=== PATIENT | female | born 1940 | race Two or more races ===

== ENCOUNTER 2025-02-07 17:02 | Inpatient (IN) | payer OTHER, MEDICARE ==
[~2025-02-07] VITALS: Ht 152.4 cm; Wt 74.7 kg
--- NOTE | 2025-02-07 17:29 | ECG ---
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
--- NOTE | 2025-02-07 18:14 | DVH ---
CHEST RADIOGRAPH Indication: sob Technique: Single frontal view of the chest was obtained Comparison: None FINDINGS: Lines and Tubes: None Lungs: Right lower lung zone opacity with obscuration of the right hemidiaphragm. No pneumothorax. Cardiomediastinal contours: Limited evaluation of the Heart size due to Opacification of the right lo wer lung zone. Bones: No acute osseous abnormality. IMPRESSION: Right lower lung zone opacity with obscuration of the right hemidiaphragm which may be from small to moderate pleural effusion atelectasis/pneumonia
[2025-02-07 18:22] LABS: Hematocrit 42.3 % (36.0-46.0); Hemoglobin 14.6 g/dL (12.2-16.2); Mean Corpuscular Hemoglobin 30.6 pg (28.0-32.0); Mean Corpuscular Volume 88.4 fL (80.0-100.0); Nucleated Red Blood Cells % 0.1 %
[2025-02-07 18:43] LABS: Potassium 4.3 mmol/L (3.5-5.1)
[2025-02-07 18:44] LABS: Anion Gap 8 (5-15); Carbon Dioxide 26 mmol/L (20-31)
[2025-02-07 18:45] LABS: Calcium 9.0 mg/dL (8.7-10.4)
[2025-02-07 18:50] LABS: BUN/Creatinine Ratio 17.1 (10.0-20.0); Blood Urea Nitrogen 13 mg/dL (9-23)
[2025-02-07 19:00] LABS: Chloride 95 mmol/L (98-107); Glucose 129 mg/dL (74-106); Sodium 129 mmol/L (136-145)
--- NOTE | 2025-02-07 19:09 | ED.PDOC ---
History of Present Illness HPI Comments This 84-year-old female with past medical history of AFib on Eliquis, hypertension, type 2 diabetes mellitus, hypothyroidism, hyperlipidemia presented to the ED with a chief complaint of right-sided chest pain and shortness of breath since yesterday prior to this visit. The patient states that she started having intermittent chest pain and shortness of breath for last 6 weeks getting worse that prompted this visit. The patient describes the pain as sharp right lower part of the chest, 9/10, radiates to the back, associated with shortness of breath, using boost of oxygen. The patient also mentioned having fever and chills, runny nose for the same duration. 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 Woods's office and he referred the patient to come to the ED for further evaluation and management of chest pain and shortness of breath. PCP: Dr. Randolph Chief Complaint: Shortness of Breath Time Seen by MD: 17:07 Allergies: Coded Allergies: NO KNOWN ALLERGIES (Unverified , 09/14/18) Home Meds No Active Prescriptions or Reported Meds Information Source: Patient Mode of Arrival: Ambulatory Severity: Moderate Timing: Days Duration: Since onset Prehospital treatment: None Past Medical History PAST MEDICAL HISTORY: AFIB, High Lipids, HTN, Thyroid Surgical History: Cholecystectomy, , Hysterectomy SMELTER LINER History: Denies all SMELTER LINER Hx Family History Family History: Reviewed,noncontributory to illness Social History Smoker: Non-Smoker Alcohol: Denies ETOH Use Drugs: Denies Drug Use Lives In: Home Constitutional: reports: chills, fever; denies: diaphoresis, fatigue, malaise, sweats, weakness, others EENTM: denies: blurred vision, double vision, ear bleeding, ear discharge, ear drainage, ear pain, ear ringing, eye pain, eye redness, hearing loss, mouth pain, mouth swelling, nasal discharge, nose bleeding, nose congestion, nose pain, photophobia, tearing, throat pain, throat swelling, voice changes, others Respiratory: reports: shortness of breath; denies: cough, hemoptysis, orthopnea, SOB at rest, SOB with excertion, stridor, wheezing, others Cardiovascular: reports: chest pain; denies: dizzy spells, diaphoresis, Dyspnea on exertion, edema, irregular heart beat, left arm pain, lightheadedness, palpitations, PND, syncope, others Gastrointestinal: denies: abdomen distended, abdominal pain, blood streaked bowels, constipated, diarrhea, dysphagia, difficulty swallowing, hematemesis, melena, nausea, poor appetite, poor fluid intake, rectal bleeding, rectal pain, vomiting, others Genitourinary: denies: abnormal vagina bleeding, burning, dyspareunia, dysuria, flank pain, frequency, hematuria, incontinence, pain, , vagina discharge, urgency, others Neurological: denies: dizziness, fainting, headache, left sided numbness, left sided weakness, numbness, paresthesia, pre-existing deficit, right sided numb ness, right sided weakness, seizure, speech problems, tingling, tremors, weakness, others Musculoskeletal: denies: back pain, gout, joint pain, joint swelling, muscle pain, muscle stiffness, neck pain, others Integumetry: denies: bruises, change in color, change in hair/nails, dryness, laceration, lesions, lumps, rash, wounds, others Allergic/Immunocompromised: denies: Difficulty Healing, Frequent Infections, Hives, Itching, others Hematologic/Lymphatic: denies: anemia, blood clots, easy bleeding, easy bruising, swollen glands, others Endocrine: denies: excessive hunger, excessive sweating, excessive thirst, excessive urination, flushing, intolerance to cold, intolerance to heat, unexplained weight gain, unexplained weight loss, others Psychiatric: denies: anxiety, bipolar disorder, depression, hopeless, panic disorder, schizophrenia, sleepless, suicidal, others Physical Exam General Appearance: Mild Distress HEENT: Normal ENT Inspection, Pharynx Normal, TMs Normal Neck: Full Range of Motion, Non-Tender, Normal, Normal Inspection Respiratory: Rales, Other (Decreased breath sounds and rales in the right basal zone of the lung) Cardiovascular: Irregular (Bilateral pedal edema 1+), Other Breast Exam: Deferred Gastrointestinal: No Organomegaly, Non Tender, No Pulsatile Mass, Normal Bowel Sounds, Soft Genitalia: Deferred Pelvic: Deferred Rectal: Deferred Extremities: No calf tenderness, Normal capillary refill, Pedal edema Neurologic: NOT DONE Cerebellar Function: NOT DONE Reflexes: NOT DONE Skin: NOT DONE Peripheral Pulses: 2+ carotid (R), 2+ carotid (L), 2+ femoral (R), 2+ femoral (L), 2+ dorsalis pedis (R), 2+ dorsalis pedis (L), 2+ Radial (R), 2+ Radial (L), 2+ Brachial (R), 2+ Brachial (L) Lymphatic: NOT DONE Was a procedure done? Was a procedure done?: No Differential Dx Considerations may include: Pneumonia, pulmonary embolism, pulmonary infarction, musculoskeletal chest pain, atrial fibrillation X-Ray, Labs, Meds, VS Vital Signs Date Time Temp Pulse Resp B/P (MAP) Pulse Ox O2 Delivery O2 Flow Rate FiO2 02/07/25 17:14 112 02/07/25 17:04 98.1 121 20 137/88 96 98.1 Lab Test 02/07/25 18:05 Range/Units White Blood Count 14.2 H 4.4-10.8 10^3/uL Red Blood Count 4.79 4.0-5.20 10^6/uL Hemoglobin 14.6 12.2-16.2 g/dL Hematocrit 42.3 36.0-46.0 % Mean Corpuscular Volume 88.4 80.0-100.0 fL Mean Corpuscular Hemoglobin 30.6 28.0-32.0 pg Mean Corpuscular Hemoglobin Concent 34.6 32.0-36.0 g/dL Red Cell Distribution Width 13.3 11.8-14.3 % Platelet Count 327 140-450 10^3/uL Mean Platelet Volume 7.7 6.9-10.8 fL Neutrophils (%) (Auto) 87.7 H 37.0-80.0 % Lymphocytes (%) (Auto) 4.4 L 10.0-50.0 % Monocytes (%) (Auto) 7.6 0.0-12.0 % Eosinophils (%) (Auto) 0.1 0.0-7.0 % Basophils (%) (Auto) 0.2 0.0-2.0 % Neutrophils # (Auto) 12.4 H 1.6-8.6 10 ^3/uL Lymphocytes # (Auto) 0.6 0.4-5.4 10 ^3/uL Monocytes # (Auto) 1.1 0-1.3 10 ^3/uL Eosinophils # (Auto) 0 0-0.8 10 ^3/uL Basophils # (Auto) 0 0-0.2 10 ^3/uL Nucleated Red Blood Cells 0.1 % D-Dimer, Quantitative 1.16 H 0.0-0.49 mg/L FEU Sodium Level Pending Potassium Level Pending Chloride Level Pending Carbon Dioxide Level Pending Anion Gap Pending Blood Urea Nitrogen Pending Creatinine Pending Glomerular Filtration Rate Calc Pending BUN/Creatinine Ratio Pending Serum Glucose Pending Calcium Level Pending Troponin I High Sensitivity < 3 L </=34 ng/L B-Type Natriuretic Peptide 140.34 0-100 pg/mL X-Ray, Labs, Meds, VS Comment CHEST RADIOGRAPH Indication: sob Technique: Single frontal view of the chest was obtained Comparison: None FINDINGS: Lines and Tubes: None Lungs: Right lower lung zone opacity with obscuration of the right hemidiaphragm. No pneumothorax. Cardiomediastinal contours: Limited evaluation of the Heart size due to Opacification of the right lower lung zone. Bones: No acute osseous abnormality. IMPRESSION: Right lower lung zone opacity with obscuration of the right hemidiaphragm which may be from small to moderate pleural effusion atelectasis/pneumonia Images Reviewed?: Images reviewed and evaluated by me Time of 1ST Reevaluation: 19:00 Reevaluation 1ST: Unchanged Patient Education/Counseling: Diagnosis, Treatment Family Education/Counseling: Diagnosis, Treatment SEPSIS Sepsis Screen Date sepsis recognized/suspect: Feb 07, 2025 Time Sepsis recognized/suspect: 1706 Recent Procedure: No On Antibiotic Therapy: No Respiratory Rate >20: No Heart Rate >90: Yes Temp<36 C (96.8 F) or >38.3 C: No SBP <90 or MAP <65 mmHG: No New Acute Mental Status Change: No Is the patient on CPAP, BIPAP,: No Physician Orders Troponin-I Hs (02/07/25 18:27) Troponin-I Hs (02/07/25 20:27) Electrocardigram (02/07/25 18:27) Electrocardigram (02/07/25 20:27) Basic Metabolic Panel (02/07/25 17:30) Chest Portable (02/07/25 17:30) Urinalysis (02/07/25 17:30) Echo 2d Mode Cardiac Dop (02/07/25 17:30) Sodium Chloride 0.9% (02/07/25 18:45) Lactic Acid W/ Reflex Order (02/07/25 18:41) Covid19 Antigen Lucy (02/07/25 ) Rapid Influenza A&B (02/07/25 18:41) Ceftriaxone 1gm/50ml D5w (Rocephin) (02/07/25 18:45) Azithromycin 500mg/ 250ml (Zithromax 50 (02/07/25 19:15) Bilat Lower Dvt (02/07/25 18:53) Vital Signs Date Time Temp Pulse Resp B/P (MAP) Pulse Ox O2 Delivery O2 Flow Rate FiO2 02/07/25 17:14 112 02/07/25 17:04 98.1 121 20 137/88 96 98.1 Laboratory Tests Test 02/07/25 18:05 White Blood Count 14.2 10^3/uL (4.4-10.8) H Departure 1 Departure Time of Disposition: 19:07 Impression: Primary Impression: Pneumonia Additional Impression: Leukocytosis Disposition: 30 STILL A PATIENT Admit to: Med Surg Condition: Guarded e-Prescriptions No Active Prescriptions or Reported Meds Critical Care Note Critical Care Time?: No Stability Stability form required: ALVINA Vidales RESIDENT Feb 07, 2025 19:09
--- NOTE | 2025-02-07 19:28 | DVH ---
Procedure: US BiLat Lower DVT Study Date and Requested Time: 02/07/2025 07:00 PM History: To rule out DVT Comparison: None Technique: Multiple high resolution fam-scale images with and without compression obtained of the bi lateral lower extremity veins, including the common femoral vein, deep femoral vein, proximal mid and distal superficial femoral vein, and popliteal vein. Additional limited images of the greater saphen ous vein also obtained. Augmentation performed as indicated. Color and spectral doppler flow images o btained as indicated. Findings: No visible intraluminal venous thrombus. No evidence of incompressibility or abnormal color or spectr al Doppler flow visualized in the bilateral lower extremity veins including, the common femoral vein, deep femoral vein, proximal mid and distal superficial femoral vein, and popliteal vein. Greater sap henous vein grossly unremarkable. Impression: No sonographic evidence of bilateral lower extremity deep venous thrombosis.
[2025-02-07 19:47] VITALS: O2SAT 92
[2025-02-07] MEDS: MORPHINE SULFATE INJ 2 MG/ml SYRG IV ONE (20:39)
[2025-02-07] MEDS: SODIUM CHLORIDE 0.9% 500 ML IV ONE (20:48)
[2025-02-07 20:52] LABS: Lactic Acid w/Reflex 2.4 mmol/L (0.4-2.0)
[2025-02-07] MEDS: cefTRIAXone 1GM/50ML D5W 50 ML IV ONE (20:55)
[2025-02-07 21:11] LABS: COVID19 ANTIGEN SOFIA FIA NEGATIVE (NEGATIVE)
[2025-02-07] MEDS: AZITHROMYCIN 500MG/ 250ML 250 ML IV ONE (22:08)
[2025-02-07] MEDS ORDERED: cefTRIAXone 1GM/50ML D5W 50 ML IV ONE (22:45)
[2025-02-07] MEDS ORDERED: AZITHROMYCIN 500MG/ 250ML 250 ML IV ONE (22:45)
[2025-02-07] MEDS ORDERED: ENOXAPARIN SOD 60 MG/0.6 ML SYRINGE SC SCH (23:45)
[2025-02-07] MEDS: HYDROcodone-ACET 5/325MG TAB PO ONE (23:48)
[2025-02-07 23:58] VITALS: BP 140/65; PULSE 110; RESP 18; TEMP 98.2; O2SAT 94
[2025-02-08] VITALS (8 sets, daily range): BP systolic 130–142; BP diastolic 62–80; PULSE 105–123; RESP 18–20; TEMP 96.7–99; O2SAT 94–96
--- NOTE | 2025-02-08 03:01 | DVHINCON2 ---
Date of service: Feb 07, 2025 Referring Physician Emelina Reason for Consultation Atrial flutter History of Present Illness This is a 84-year-old female with a past medical history of AFib on Eliquis, hypertension, type 2 diabetes mellitus, hypothyroidism, hyperlipidemia presented to the ED with a complaint of right-sided chest pain and shortness of breath x24 hours. The patient states that she started having intermittent chest pain and shortness of breath for last 6 weeks getting worse. Patient describes the pain as sharp right lower part of the chest, 9/10, radiates to the back, associated with shortness of breath, using boost of oxygen. Patient also endorses having fever and chills, runny nose for the same duration. Patient went to her lens cutter Dr. Woods's office and he referred the patient to come to the ED for further evaluation. WBC 14.2, D-DIMER 1.16, NA 129, TROP is negative. Chest x-ray showed right lower lung zone opacity with obscuration of the right hemidiaphragm which may be from small to moderate pleural effusion atelectasis/pneumonia. BLE Venous US is negative for DVT. Patient was admitted to the hospital. I am asked to consult on this patient. Family History: Cerebrovascular accident (CVA) G8 MOTHER Allergies: Coded Allergies: NO KNOWN ALLERGIES (Unverified , 09/14/18) Home Meds No Active Prescriptions or Reported Meds Current Medications Current Medications Medications (Trade) Dose Ordered Sig/Amna Route PRN Reason Start Time Stop Time Status Last Admin Ondansetron HCl (Zofran) 4 mg Q4HP PRN IV NAUSEA / VOMITING 02/07/25 22:45 Nitroglycerin (Ntrostat Sublingual) 0.4 mg Q5MINP PRN SL FOR CHEST PAIN 02/07/25 22:45 Metoprolol Tartrate (Lopressor Tablet) 25 mg BID PO 02/08/25 10:00 UNV Enoxaparin Sodium (Lovenox) 60 mg Q12HR SC 02/08/25 10:00 UNV Review of Systems Constitutional: reports: chills, fever; denies: diaphoresis, fatigue, malaise, sweats, weakness, others EENTM: denies: blurred vision, double vision, ear bleeding, ear discharge, ear drainage, ear pain, ear ringing, eye pain, eye redness, hearing loss, mouth pain, mouth swelling, nasal discharge, nose bleeding, nose congestion, nose pain, photophobia, tearing, throat pain, throat swelling, voice changes, others Respiratory: reports: shortness of breath; denies: cough, hemoptysis, orthopnea, SOB at rest, SOB with excertion, stridor, wheezing, others Cardiovascular: reports: chest pain; denies: dizzy spells, diaphoresis, Dyspnea on exertion, edema, irregular heart beat, left arm pain, lightheadedness, palpitations, PND, syncope, others Gastrointestinal: denies: abdomen distended, abdominal pain, blood streaked bowels, constipated, diarrhea, dysphagia, difficulty swallowing, hematemesis, melena, nausea, poor appetite, poor fluid intake, rectal bleeding, rectal pain, vomiting, others Genitourinary: denies: abnormal vagina bleeding, burning, dyspareunia, dysuria, flank pain, frequency, hematuria, incontinence, pain, , vagina discharge, urgency, others Neurological: denies: dizziness, fainting, headache, left sided numbness, left sided weakness, numbness, paresthesia, pre-existing deficit, right sided numbness, right sided weakness, seizure, speech problems, tingling, tremors, weakness, others Musculoskeletal: denies: back pain, gout, joint pain, joint swelling, muscle pain, muscle stiffness, neck pain, others Integumetry: denies: bruises, change in color, change in hair/nails, dryness, laceration, lesions, lumps, rash, wounds, others Allergic/Immunocompromised: denies: Difficulty Healing, Frequent Infections, Hives, Itching, others Hematologic/Lymphatic: denies: anemia, blood clots, easy bleeding, easy bruising, swollen glands, others Endocrine: denies: excessive hunger, excessive sweating, excessive thirst, excessive urination, flushing, intolerance to cold, intolerance to heat, unexplained weight gain, unexplained weight loss, others Psychiatric: denies: anxiety, bipolar disorder, depression, hopeless, panic disorder, schizophrenia, sleepless, suicidal, others Vital Signs Vital Signs Date Time Temp Pulse Resp B/P (MAP) Pulse Ox O2 Delivery O2 Flow Rate FiO2 02/07/25 20:39 122 18 120/76 02/07/25 19:47 92 Room Air* 0 21 02/07/25 19:47 99.0 99.0 Physical Exam GENERAL: Alert and oriented x 3. No acute distress. EYES: PERRL, EOMI. Anicteric. HENT: Moist mucous membranes. LUNGS: Clear to auscultation bilaterally. CARDIOVASCULAR: Regular rate and rhythm. ABDOMEN: Soft, nontender and nondistended. EXTREMITIES: No edema. NEUROLOGIC: No focal neurological deficits. SKIN: Warm, dry. Labs/Diagnostic Data Labs Test 02/07/25 21:17 02/07/25 20:10 02/07/25 18:05 Range/Units Lactic Acid Level 1.2 0.4-2.0 mmol/L Troponin I High Sensitivity < 3 L </=34 ng/L Influenza Type A Antigen Negative Negative Influenza Type B Antigen Negative Negative SARS-CoV-2 Antigen (Rapid) Negative NEGATIVE White Blood Count 14.2 H 4.4-10.8 10^3/uL Red Blood Count 4.79 4.0-5.20 10^6/uL Hemoglobin 14.6 12.2-16.2 g/dL Hematocrit 42.3 36.0-46.0 % Mean Corpuscular Volume 88.4 80.0-100.0 fL Mean Corpuscular Hemoglobin 30.6 28.0-32.0 pg Mean Corpuscular Hemoglobin Concent 34.6 32.0-36.0 g/dL Red Cell Distribution Width 13.3 11.8-14.3 % Platelet Count 327 140-450 10^3/uL Mean Platelet Volume 7.7 6.9-10.8 fL Neutrophils (%) (Auto) 87.7 H 37.0-80.0 % Lymphocytes (%) (Auto) 4.4 L 10.0-50.0 % Monocytes (%) (Auto) 7.6 0.0-12.0 % Eosinophils (%) (Auto) 0.1 0.0-7.0 % Basophils (%) (Auto) 0.2 0.0-2.0 % Neutrophils # (Auto) 12.4 H 1.6-8.6 10 ^3/uL Lymphocytes # (Auto) 0.6 0.4-5.4 10 ^3/uL Monocytes # (Auto) 1.1 0-1.3 10 ^3/uL Eosinophils # (Auto) 0 0-0.8 10 ^3/uL Basophils # (Auto) 0 0-0.2 10 ^3/uL Nucleated Red Blood Cells 0.1 % D-Dimer, Quantitative 1.16 H 0.0-0.49 mg/L FEU Sodium Level 129 L 136-145 mmol/L Potassium Level 4.3 3.5-5.1 mmol/L Chloride Level 95 L 98-107 mmol/L Carbon Dioxide Level 26 20-31 mmol/L Anion Gap 8 5-15 Blood Urea Nitrogen 13 9-23 mg/dL Creatinine 0.76 0.550-1.02 mg/dL Glomerular Filtration Rate Calc 76 >90 mL/min BUN/Creatinine Ratio 17.1 10.0-20.0 Serum Glucose 129 H 74-106 mg/dL Calcium Level 9.0 8.7-10.4 mg/dL B-Type Natriuretic Peptide 140.34 0-100 pg/mL Assessment Chest pain. Pneumonia. Hyponatremia. AFib on Eliquis. Hypertension. Type 2 diabetes mellitus. Hypothyroidism. Hyperlipidemia. Plan/Recommendation I agree with your ongoing assessment and care of plan. Telemetry reviewed. Echocardiogram. DVT prophylactics. Metoprolol. Nitro SL. Additional plan as per the hospital course. A total of 45 minutes was spent reviewing the patient record, examining the patient, making a diagnostic and therapeutic plan, discussing this plan with medical personnel, following up on diagnostic studies and following the patient for clinical stability excluding any and all procedures. At least 50% of this time was spent in direct, [id number] contact. Plan discussed with: Patient ABBEY VARELA MD Feb 07, 2025 23:32
--- NOTE | 2025-02-08 03:03 | DVHHPRES ---
History of Present Illness Resident Creating Document: ANAHY YADAV History of Present Illness 84-year-old female presents to the ED with 6-8 weeks' history of cough which worsened since the last week. The cough is not mixed with blood, sputum is minimal and clear. The patient has a right-sided chest wall pain which worsens with breathing. Her business applications specialist diagnosed pneumonia by chest x-ray and sent her to the ER. Previously she reports having drained her pleural fluid by the same doctor. She denies abdominal pain, nausea, vomiting dizziness or any other complaints. She complains of her left knee pain and back pain. In the ER, arranging a pillow on the wheelchair improved her back pain. Past medical history: Hypertension Past surgical history, none Alcohol: None Smoking: None Drugs: None Lives in her own home. Code status DNR DNI PCP : Can not recall Mental Retardation Aide: Home medicines: Antihypertensive, could not mentioned the name. Family history: Noncontributory Allergies: None Cardiovascular: AFIB Review of Systems Allergies: Coded Allergies: NO KNOWN ALLERGIES (Unverified , 09/14/18) Medications Current Medications Medications Dose Ordered Sig/Amna Route Start Time Stop Time Status Last Admin Dose Admin Ondansetron HCl 4 mg Q4HP PRN IV 02/07/25 22:45 Nitroglycerin 0.4 mg Q5MINP PRN SL 02/07/25 22:45 Metoprolol Tartrate 25 mg BID PO 02/08/25 10:00 Enoxaparin Sodium 60 mg Q12HR SC 02/07/25 23:45 Exam Vital Signs Vital Signs Date Time Temp Pulse Resp B/P (MAP) Pulse Ox O2 Delivery O2 Flow Rate FiO2 02/07/25 23:48 104 16 120/61 (80) 96 02/07/25 19:47 Room Air* 0 21 02/07/25 19:47 99.0 99.0 Exam Pt is lying on bed General Appearance: Alert, Oriented X3, Cooperative, Mild distress HEENT: Atraumatic, Mucous membranes moist/pink Respiratory: Clear to auscultation, Normal air movement, No added sounds Cardiovascular: Regular rate, Normal S1, Normal S2, No murmurs Abdominal/ : Active bowel sounds, Soft, no distention, no tenderness Extremities: No edema, Normal pulses, No tenderness/swelling Skin: No Significant rash, except past surgical scars Neuro: Normal speech, sensorimotor deficits none Psych/Mental Status: Mental status NL, Mood NL Nurse was there as mc kay stitcher during examination Labs/Xrays Labs Test 02/07/25 21:17 02/07/25 20:10 02/07/25 18:05 Range/Units Lactic Acid Level 1.2 0.4-2.0 mmol/L Troponin I High Sensitivity < 3 L </=34 ng/L Influenza Type A Antigen Negative Negative Influenza Type B Antigen Negative Negative SARS-CoV-2 Antigen (Rapid) Negative NEGATIVE White Blood Count 14.2 H 4.4-10.8 10^3/uL Red Blood Count 4.79 4.0-5.20 10^6/uL Hemoglobin 14.6 12.2-16.2 g/dL Hematocrit 42.3 36.0-46.0 % Mean Corpuscular Volume 88.4 80.0-100.0 fL Mean Corpuscular Hemoglobin 30.6 28.0-32.0 pg Mean Corpuscular Hemoglobin Concent 34.6 32.0-36.0 g/dL Red Cell Distribution Width 13.3 11.8-14.3 % Platelet Count 327 140-450 10^3/uL Mean Platelet Volume 7.7 6.9-10.8 fL Neutrophils (%) (Auto) 87.7 H 37.0-80.0 % Lymphocytes (%) (Auto) 4.4 L 10.0-50.0 % Monocytes (%) (Auto) 7.6 0.0-12.0 % Eosinophils (%) (Auto) 0.1 0.0-7.0 % Basophils (%) (Auto) 0.2 0.0-2.0 % Neutrophils # (Auto) 12.4 H 1.6-8.6 10 ^3/uL Lymphocytes # (Auto) 0.6 0.4-5.4 10 ^3/uL Monocytes # (Auto) 1.1 0-1.3 10 ^3/uL Eosinophils # (Auto) 0 0-0.8 10 ^3/uL Basophils # (Auto) 0 0-0.2 10 ^3/uL Nucleated Red Blood Cells 0.1 % D-Dimer, Quantitative 1.16 H 0.0-0.49 mg/L FEU Sodium Level 129 L 136-145 mmol/L Potassium Level 4.3 3.5-5.1 mmol/L Chloride Level 95 L 98-107 mmol/L Carbon Dioxide Level 26 20-31 mmol/L Anion Gap 8 5-15 Blood Urea Nitrogen 13 9-23 mg/dL Creatinine 0.76 0.550-1.02 mg/dL Glomerular Filtration Rate Calc 76 >90 mL/min BUN/Creatinine Ratio 17.1 10.0-20.0 Serum Glucose 129 H 74-106 mg/dL Calcium Level 9.0 8.7-10.4 mg/dL B-Type Natriuretic Peptide 140.34 0-100 pg/mL SEPSIS Sepsis Screen Date sepsis recognized/suspect: Feb 07, 2025 Time Sepsis recognized/suspect: 1706 Recent Procedure: No On Antibiotic Therapy: No Respiratory Rate >20: No Heart Rate >90: Yes Temp<36 C (96.8 F) or >38.3 C: No SBP <90 or MAP <65 mmHG: No New Acute Mental Status Change: No Is the patient on CPAP, BIPAP,: No Physician Orders Saline Lock (02/07/25 20:11) Blood Culture (02/07/25 20:19) Admit (02/07/25 22:45) Allergies (02/07/25 22:45) Code Status (02/07/25 22:45) Oxygen Per Hour (02/07/25 22:45) Ondansetron Hcl (Zofran) (02/07/25 22:45) Complete Blood Count (02/08/25 04:00) Comprehensive Metabolic Panel (02/08/25 04:00) Cardiac Diet-2gna,Lofat,Lochol (02/08/25 Breakfast) Nitroglycerin Sublingual (Ntrostat Subli (02/07/25 22:45) Oxygen By Nasal Cannula (02/07/25 22:45) Stat Ekg For Chest Pain (02/07/25 22:45) Notify Md Of Changes From Base (02/07/25 22:45) Proced Tech For 24 Hours (02/07/25 22:45) Emergency Dysrhythmia Protocol (02/07/25 22:45) Rhythm Strips Once Every Shift (02/07/25 22:45) Metoprolol Tartrate Tablet (Lopressor Ta (02/08/25 10:00) * Cardiology Consult (02/07/25 23:10) Enoxaparin Sodium (Lovenox) (02/07/25 23:45) Vital Signs Date Time Temp Pulse Resp B/P (MAP) Pulse Ox O2 Delivery O2 Flow Rate FiO2 02/07/25 23:48 104 16 120/61 (80) 96 02/07/25 20:39 122 18 120/76 02/07/25 19:47 92 Room Air* 0 21 02/07/25 19:47 99.0 122 18 123/76 (92) 90 99.0 Laboratory Tests Test 02/07/25 18:05 02/07/25 19:36 02/07/25 21:17 White Blood Count 14.2 10^3/uL (4.4-10.8) H Lactic Acid Level 2.4 mmol/L (0.4-2.0) *H 1.2 mmol/L (0.4-2.0) Medications Medications Dose Ordered Sig/Amna Route Start Time Stop Time Status Last Admin Dose Admin Acetaminophen/ Hydrocodone Bitart 1 tab ONCE ONCE PO 02/07/25 22:45 02/07/25 22:46 DC 02/07/25 23:48 1 TAB Azithromycin 250 ml @ 125 mls/hr ONCE ONCE IV 02/07/25 19:15 02/07/25 21:14 DC 02/07/25 22:08 125 MLS/HR Ceftriaxone Sodium 50 ml @ 100 mls/hr ONCE ONCE IV 02/07/25 18:45 02/07/25 19:14 DC 02/07/25 20:55 100 MLS/HR Morphine Sulfate 2 mg ONCE ONCE IV 02/07/25 17:30 02/07/25 17:33 DC 02/07/25 20:39 2 MG Sodium Chloride 500 ml @ 500 mls/hr Q1H ONCE IV 02/07/25 18:45 02/07/25 19:44 DC 02/07/25 20:48 500 MLS/HR Assessment/Plan Assessment/Plan Shortness of breaths due to pneumonia by gram-positive or gram-negative organism Chest pain due to pneumonia my Gram-positive or Gram-negative organism Meeting SIRS criteria -leukocytosis -CXR: Right lower lung zone opacity with obstruction of the right hemidiaphragm, likely from small to moderate pleural effusion atelectasis/pneumonia. -lactic acidosis, downtrending (2.4>1.2) -ceftriaxone and azithromycin -NSAIDs for chest wall pain Tachycardia due to sepsis/infection Atrial flutter on EKG - telemetry monitoring -metoprolol -Lovenox -cardiology consult: Telemetry reviewed by Cardiology. Recommendations from Cardiology: Echocardiogram. DVT prophylactics. Metoprolol. Nitro SL. Hypertension Continue home meds GI prophylaxis: Not indicated DVT prophylaxis: Lovenox Diet: Regular Goals of care discussed with the patient for more than 27 minutes: Full code status Case discussed with , patient and RN Plan discussed with: Patient, Other (RN) My Orders Orders - ANAHY YADAV RESIDENT Procedure Category Date Status Time Admit ADMIT 02/07/25 Transmitted 22:45 Allergies PEDRITO 02/07/25 In Process 22:45 Code Status CODE 02/07/25 Transmitted 22:45 Oxygen Per Hour RT 02/07/25 Transmitted 22:45 Ondansetron Hcl PHA 02/07/25 In Process (Zofran) 22:45 Complete Blood Count LAB 02/08/25 Logged 04:00 Comprehensive LAB 02/08/25 Logged Metabolic Panel 04:00 Cardiac DIET 02/08/25 Transmitted Diet-2gna,Lofat,Lochol Breakfast Nitroglycerin PHA 02/07/25 In Process Sublingual (Ntrostat 22:45 Oxygen By Nasal RT 02/07/25 Transmitted Cannula 22:45 Stat Ekg For Chest PEDRITO 02/07/25 In Process Pain 22:45 Notify Md Of Changes PEDRITO 02/07/25 In Process From Base 22:45 Proced Tech For PEDRITO 02/07/25 In Process 24 Hours 22:45 Emergency Dysrhythmia PEDRITO 02/07/25 In Process Protocol 22:45 Rhythm Strips Once PEDRITO 02/07/25 In Process Every Shift 22:45 Metoprolol Tartrate PHA 02/08/25 In Process Tablet (Lopressor Ta 10:00 * Cardiology Consult CONS 02/07/25 Transmitted 23:10 Enoxaparin Sodium PHA 02/07/25 In Process (Lovenox) 23:45 Date of Service: Feb 07, 2025 Billing Provider: GAMAL HOLT MD Common Visit Codes: [id number] INP/OBS CARE (HIGH) Secondary Visit Codes: [id number] CARE PLAN 30 MINUTES ANAHY YADAV Feb 08, 2025 03:03 GAMAL HOLT MD Feb 14, 2025 15:53
[2025-02-08] MEDS: KETOROLAC TROMETH 30 MG/ML 1ML VIAL IV ONE ×2 (03:50→13:18)
[2025-02-08] MEDS: ENOXAPARIN SOD 60 MG/0.6 ML SYRINGE SC SCH (07:03)
[2025-02-08 07:29] LABS: Hematocrit 38.6 % (36.0-46.0); Hemoglobin 13.5 g/dL (12.2-16.2); Mean Corpuscular Hemoglobin 31.1 pg (28.0-32.0); Mean Corpuscular Volume 88.7 fL (80.0-100.0); Nucleated Red Blood Cells % 0.1 %
[2025-02-08 07:48] LABS: Albumin 3.6 g/dL (3.2-4.8); Anion Gap 11 (5-15); BUN/Creatinine Ratio 17.1 (10.0-20.0); Blood Urea Nitrogen 14 mg/dL (9-23); Calcium 9.1 mg/dL (8.7-10.4); Carbon Dioxide 22 mmol/L (20-31); Potassium 4.5 mmol/L (3.5-5.1); Total Protein 6.0 g/dL (5.7-8.2)
[2025-02-08 07:49] LABS: Bilirubin, Total 1.0 mg/dL (0.2-1.0)
[2025-02-08 07:50] LABS: Alanine Aminotransferase 71 U/L (7-40); Alkaline Phosphatase 126 U/L (46-116); Chloride 96 mmol/L (98-107); Glucose 107 mg/dL (74-106); Sodium 129 mmol/L (136-145)
[2025-02-08] MEDS: METOPROLOL TARTRATE 25 MG TAB PO SCH (09:41)
[2025-02-08] MEDS: ONDANSETRON HCL 4 MG/2 ML VIAL IV PRN (12:33)
--- NOTE | 2025-02-08 15:34 | DVHPN2 ---
Subjective Continue to complain of chest pain and shortness of breath Reviewed: Care Plan, H&P, Labs, Medications, Previous Orders, Radiology, Other (Consultation) Changes from previous H/P or p: No Changes Objective Vitals Vital Signs Date Time Temp Pulse Resp B/P (MAP) Pulse Ox O2 Delivery O2 Flow Rate FiO2 02/08/25 13:00 96.7 109 20 134/75 (94) 96 96.7 02/08/25 08:00 Nasal Cannula* 2 28 Intake/Output Intake and Output 02/08/25 07:00 Intake Total 240 ml Balance 240 ml Intake Oral 240 ml General Appearance: Alert, Oriented X3, Cooperative, moderate distress HEENT: Atraumatic Lungs: Other (Decreased air entry on the right side with a scattered crackles) Cardiovascular: Other (Tachycardia with irregularly irregular) Abdomen: Normal bowel sounds, Soft, No tenderness Neuro: Normal speech, Cranial nerves 3-12 NL Psych/Mental Status: Mental status NL, Mood NL Medications Current Medications Medications Dose Ordered Sig/Amna Route Start Time Stop Time Status Last Admin Dose Admin Ondansetron HCl 4 mg Q4HP PRN IV 02/07/25 22:45 02/08/25 12:33 4 MG Nitroglycerin 0.4 mg Q5MINP PRN SL 02/07/25 22:45 Metoprolol Tartrate 25 mg BID PO 02/08/25 10:00 02/08/25 09:41 25 MG Enoxaparin Sodium 60 mg Q12HR SC 02/08/25 07:00 02/08/25 07:03 60 MG Acetaminophen/ Hydrocodone Bitart 1 tab Q6HPRN PRN PO 02/08/25 13:00 Azithromycin 250 ml @ 125 mls/hr DAILY IV 02/09/25 10:00 Ceftriaxone Sodium 50 ml @ 100 mls/hr DAILY@09 IV 02/09/25 09:00 Laboratory Results Laboratory Tests 02/08/25 06:29 Chemistry Test 02/07/25 18:05 02/08/25 06:29 Calcium Level 9.0 mg/dL (8.7-10.4) 9.1 mg/dL (8.7-10.4) Albumin 3.6 g/dL (3.2-4.8) Total Protein 6.0 g/dL (5.7-8.2) Coagulation Test 02/07/25 18:05 D-Dimer, Quantitative 1.16 mg/L FEU (0.0-0.49) H Cardiac Markers Test 02/07/25 18:05 B-Type Natriuretic Peptide 140.34 pg/mL (0-100) LFT Test 02/08/25 06:29 Alanine Aminotransferase (ALT) 71 U/L (7-40) H Alkaline Phosphatase 126 U/L (46-116) H Aspartate Amino Transferase (AST) 38 U/L (13-40) Total Bilirubin 1.0 mg/dL (0.2-1.0) Labs and/or images reviewed: Labs reviewed by me, Image(s) reviewed by me Assessment/Plan Assessment/Plan An 84-year-old female patient; with multiple comorbidities; who presented to emergency department with chest pain and shortness of breath. Acute hypoxic respiratory failure due to suspected pneumonia versus suspected acute CHF exacerbation Acute chest pain; to rule out ACS Atrial fibrillation with with RVR Sepsis with leukocytosis and lactic acidosis due to suspected pneumonia Shortness of breaths with the elevated D-dimer; to rule out PE Hypertensive heart disease with CHF Elevated LFTs; most likely due to suspected acute CHF exacerbation Hyponatremia; unclear etiology Overweight Reviewed lab work and imaging studies Pending chest angiogram to rule out PE Continue oxygen therapy as needed Free water restriction Continue IV antibiotics Cardiology consulted Telemetry Counseled on the importance of adopting healthy lifestyle with healthy and exercise in order to lose weight Continue monitoring Goals of care discussed with the patient for 20 minutes; full code Late Entry. This medical document was created using an electronic medical record system with computerized dictation system. Although this document has been carefully reviewed, there might still be some phonetic and typographical errors. These areas are purely typographical due to imperfections of the software programs, and do not reflect any compromise in the patient's medical care. Plan discussed with: Patient, Other (Nurse) My Orders Orders - LIANNE ARIAS MD Procedure Category Date Status Time Hydrocodone-Acet PHA 02/08/25 In Process 5/325mg Tab ([place] 13:00 Azithromycin 500mg/ PHA 02/09/25 In Process 250ml (Zithromax 50 10:00 Azithromycin 500mg/ PHA 25 In Process 250ml (Zithromax 50 14:30 Ceftriaxone 1gm/50ml PHA 02/09/25 In Process D5w (Rocephin) 09:00 Date of Service: Feb 08, 2025 Billing Provider: LIANNE ARIAS MD Common Visit Codes: [id number] INP/OBS CARE(HIGH) Secondary Visit Codes: [id number] CARE PLAN 30 MINUTES (20 minutes) LIANNE ARIAS MD Feb 08, 2025 15:34
[2025-02-08] MEDS: cefTRIAXone 1GM/50ML D5W 50 ML IV ONE (15:50)
[2025-02-08] MEDS: AZITHROMYCIN 500MG/ 250ML 250 ML IV ONE (15:50)
--- NOTE | 2025-02-08 15:53 | DVHSR ---
APPROVED REPORT EXAM: Two-dimensional and M-mode echocardiogram with Doppler and color Doppler. Blood Pressure: 142/62 mmHg INDICATION SOB RISK FACTORS Height: 5', Weight: 138 DIMENSIONS LVDd3.9 (3.8-5.7cm)LA (2D)3.8 (1.9-4.0cm)Aortic Root3.0 (2.0-3.7cm) LVDs2.8 (2.5-4.0cm)LA (MM) (1.9-4.0cm)Aortic Cusp Exc1.3 (1.5-2.0cm) EF (%) 55.0 (55-70%)Rt. Atrium3.9 (1.9-4.0cm)Asc. Aorta cm IVSd1.2 (0.7-1.1cm)RV (D) (1.8-2.4cm) PWd1.0 (0.7-1.1cm) Mitral Valve MitralMitral Stenosis E wave1.20m/sMV Mean GR.mmHg E/A ratio0.02D MVAcm2 Aortic Valve Aortic ValveAortic Stenosis V10.84m/Johann Mean GR.2mmHg V21.07m/Johann Peak GR.5mmHg LVOT Diameter2.0 (1.8-2.4cm)Doppler AVA2.47cm2 Pulmonic Valve V20.63m/s Tricuspid Valve TR Velocity2.72m/s [id number] Other Information Quality : Technically LimitedRhythm : Atrial Fibrillation Technically limited study due to body habitus. Conclusion MODERATELY DILATED RV AND RA DYSKINESIS OF IVS IT IS ACUTE OR CHRONIC RV FAILURE MILD LVH AND MILD LV DIASTOLIC DYSFUNCTION LV EF IS 60% NORMAL VALVES NO EFFUSION
[2025-02-08] MEDS: IOHEXOL 350 MG/ML 100ML IJ ONE (16:02)
--- NOTE | 2025-02-08 17:22 | DVH ---
EXAM: CT CT ANGIO CHEST CONTRAST History: To rule out pE. Thank You! Comparison Study: XY CHEST PORTABLE on DOS: 02/07/25 TECHNIQUE: A digital flitch hanger image was obtained. During the uneventful, intravenous administration of c ontrast material, multislice data acquisition was obtained through the chest. 3-D postprocessing is performed by technologist including MIP imaging Radiation Dose : CTDI vol 17.79 mGy, DLP 636.44 mGy*cm. Findings: Lungs: Large right pleural effusion with near complete atelectasis of the right lower lobe. Periphera l nodular opacities in the left lower lobe. Pleura: Unremarkable Heart/Great vessels: No cardiomegaly. Small pericardial effusion. No pulmonary embolism, aneurysm, o r dissection. Mediastinum: Mildly prominent mediastinal nodes. Soft tissues/Bones: Mild multilevel degenerative changes of the thoracic spine. The partially visualized upper abdomen is within normal limits. Impression: 1. No evidence of a pulmonary embolism, aneurysm, or dissection. 2. Peripheral nodular opacities in the left lower lobe may reflect an infectious/inflammatory etiolog y. 3. Large right pleural effusion with right lower lobe compressive atelectasis. 4. Mildly prominent mediastinal nodes, favored reactive. 5. Small pericardial effusion.
[2025-02-08] MEDS: HYDROcodone-ACET 5/325MG TAB PO PRN (22:35)
--- NOTE | 2025-02-08 23:57 | DVHPN2 ---
Progress Note - Dictate Date Seen: Feb 08, 2025 Medical Necessity Reason Pt with a Central, PICC or Fol: No Subjective Patient was seen and evaluated in follow up. She is on 2 LPM NC. Patient complains of generalized pain. WBC 17.1, NA 129, CL 96, ALT 71. Telemetry reviewed. vital signs Vital Sign Date Time Temp Pulse Resp B/P (MAP) Pulse Ox O2 Delivery O2 Flow Rate FiO2 02/08/25 09:41 114 130/73 02/08/25 09:00 96.9 20 96 96.9 02/08/25 08:00 Nasal Cannula* 2 28 Total Intake and Output 02/07/25 02/07/25 02/08/25 15:00 23:00 07:00 Intake Total 240 ml Balance 240 ml medications Current Medications Medications Dose Ordered Sig/Amna Route Start Time Stop Time Status Last Admin Dose Admin Ondansetron HCl 4 mg Q4HP PRN IV 02/07/25 22:45 Nitroglycerin 0.4 mg Q5MINP PRN SL 02/07/25 22:45 Metoprolol Tartrate 25 mg BID PO 02/08/25 10:00 02/08/25 09:41 25 MG Enoxaparin Sodium 60 mg Q12HR SC 02/08/25 07:00 02/08/25 07:03 60 MG objective GENERAL: Alert and oriented x 3. No acute distress. EYES: PERRL, EOMI. Anicteric. HENT: Moist mucous membranes. LUNGS: Clear to auscultation bilaterally. CARDIOVASCULAR: Regular rate and rhythm. ABDOMEN: Soft, nontender and nondistended. EXTREMITIES: No edema. NEUROLOGIC: No focal neurological deficits. SKIN: Warm, dry. laboratory and microbiology Laboratory Tests 02/08/25 06:29 Test 02/08/25 06:29 Range/Units Serum Glucose 107 H 74-106 mg/dL Problem List Chest pain. Pneumonia. Hyponatremia. AFib on Eliquis. Hypertension. Type 2 diabetes mellitus. Hypothyroidism. Hyperlipidemia. Assessment/Plan Continued all current supportive medical care. Echocardiogram. DVT prophylactics. Metoprolol. Nitro SL. Additional plan as per the hospital course. Plan discussed with: Patient BABEY VARELA MD Feb 08, 2025 12:19
[2025-02-09] VITALS (8 sets, daily range): BP systolic 115–146; BP diastolic 49–81; PULSE 92–120; RESP 17–18; TEMP 97–98.3; O2SAT 95–98
[2025-02-09 07:47] LABS: Hematocrit 40.0 % (36.0-46.0); Hemoglobin 13.4 g/dL (12.2-16.2); Mean Corpuscular Hemoglobin 30.3 pg (28.0-32.0); Mean Corpuscular Volume 90.6 fL (80.0-100.0); Nucleated Red Blood Cells % 0.0 %
[2025-02-09 08:07] LABS: Albumin 3.5 g/dL (3.2-4.8); Anion Gap 8 (5-15); BUN/Creatinine Ratio 27.9 (10.0-20.0); Blood Urea Nitrogen 17 mg/dL (9-23); Calcium 9.0 mg/dL (8.7-10.4); Carbon Dioxide 23 mmol/L (20-31); Total Protein 5.9 g/dL (5.7-8.2)
[2025-02-09 08:08] LABS: Bilirubin, Total 0.7 mg/dL (0.2-1.0)
[2025-02-09 08:13] LABS: Alanine Aminotransferase 52 U/L (7-40); Alkaline Phosphatase 161 U/L (46-116); Chloride 93 mmol/L (98-107); Glucose 112 mg/dL (74-106); Potassium 5.2 mmol/L (3.5-5.1); Sodium 124 mmol/L (136-145)
[2025-02-09] MEDS: SODIUM CHLORIDE 0.9% 1,000 ML IV ONE (10:19)
[2025-02-09] MEDS: cefTRIAXone 1GM/50ML D5W 50 ML IV SCH (10:28)
[2025-02-09] MEDS: AZITHROMYCIN 500MG/ 250ML 250 ML IV SCH (10:28)
[2025-02-09] MEDS ORDERED: AMIODARONE BOLUS KIT 100 ML IV ONE (13:00)
[2025-02-09] MEDS: AMIODARONE BOLUS KIT 100 ML IV ONE (13:13)
[2025-02-09] MEDS: AMIODARONE 360mg/200mL PREMIX 200 ML IV ONE (14:19)
--- NOTE | 2025-02-09 15:21 | DVHPN2 ---
Subjective Worsening shortness of breath with chest pain Reviewed: Care Plan, H&P, Labs, Medications, Previous Orders, Radiology, Other (Consultations) Changes from previous H/P or p: Changes Objective Vitals Vital Signs Date Time Temp Pulse Resp B/P (MAP) Pulse Ox O2 Delivery O2 Flow Rate FiO2 02/09/25 13:00 98.1 108 17 135/81 (99) 97 98.1 02/09/25 08:00 Nasal Cannula* 2 28 Intake/Output Intake and Output 02/09/25 07:00 Intake Total 1440 ml Balance 1440 ml Intake Oral 1140 ml IV Total 300 ml # Voids 13 General Appearance: Alert, Oriented X3, Cooperative, moderate distress HEENT: Atraumatic Lungs: Other (Decreased air entry on the right side with a scattered crackles) Cardiovascular: Other (Tachycardia with a irregularly irregular rhythm) Abdomen: Normal bowel sounds, Soft, No tenderness Neuro: Normal speech, Cranial nerves 3-12 NL Psych/Mental Status: Mental status NL, Mood NL Medications Current Medications Medications Dose Ordered Sig/Amna Route Start Time Stop Time Status Last Admin Dose Admin Ondansetron HCl 4 mg Q4HP PRN IV 02/07/25 22:45 02/08/25 12:33 4 MG Nitroglycerin 0.4 mg Q5MINP PRN SL 02/07/25 22:45 Metoprolol Tartrate 25 mg BID PO 02/08/25 10:00 02/09/25 10:27 25 MG Enoxaparin Sodium 60 mg Q12HR SC 02/08/25 07:00 02/09/25 10:27 60 MG Acetaminophen/ Hydrocodone Bitart 1 tab Q6HPRN PRN PO 02/08/25 13:00 02/09/25 06:00 1 TAB Azithromycin 250 ml @ 125 mls/hr DAILY IV 02/09/25 10:00 02/09/25 10:28 125 MLS/HR Ceftriaxone Sodium 50 ml @ 100 mls/hr DAILY@09 IV 02/09/25 09:00 02/09/25 10:28 100 MLS/HR Laboratory Results Laboratory Tests 02/09/25 07:04 Chemistry Test 02/09/25 07:04 Albumin 3.5 g/dL (3.2-4.8) Calcium Level 9.0 mg/dL (8.7-10.4) Total Protein 5.9 g/dL (5.7-8.2) LFT Test 02/09/25 07:04 Alanine Aminotransferase (ALT) 52 U/L (7-40) H Alkaline Phosphatase 161 U/L (46-116) H Aspartate Amino Transferase (AST) 31 U/L (13-40) Total Bilirubin 0.7 mg/dL (0.2-1.0) Microbiology Microbiology Date/Time Source Procedure Growth Status 02/07/25 21:17 Blood Blood Culture - Preliminary NO GROWTH AFTER 24 HOURS OF INCUBATION. Resulted Labs and/or images reviewed: Labs reviewed by me, Image(s) reviewed by me Assessment/Plan Assessment/Plan An 84-year-old female patient; with multiple comorbidities; who presented to emergency department with chest pain and shortness of breath. Acute hypoxic respiratory failure due to suspected pneumonia, large right pleural effusion, and acute diastolic heart failure with RV failure Acute chest pain; to rule out ACS Atrial fibrillation with with RVR Sepsis with leukocytosis and lactic acidosis due to suspected pneumonia Shortness of breaths with the elevated D-dimer; PE ruled out Large right pleural effusion with right lower lobe compressive atelectasis Hypertensive heart disease with acute diastolic heart failure with RV failure Elevated LFTs; most likely due to suspected acute CHF exacerbation Hyponatremia; unclear etiology Overweight Reviewed lab work and imaging studies PE ruled out Started on amiodarone drip and apixaban by Cardiology Continue oxygen therapy as needed Free water restriction Changed IV antibiotics to IV Zosyn due to worsening leukocytosis Cardiology is following Pulmonology consulted for thoracocentesis Started on IV diuresis Telemetry Counseled on the importance of adopting healthy lifestyle with healthy and exercise in order to lose weight Continue monitoring Late Entry. This medical document was created using an electronic medical record system with computerized dictation system. Although this document has been carefully reviewed, there might still be some phonetic and typographical errors. These areas are purely typographical due to imperfections of the software programs, and do not reflect any compromise in the patient's medical care. Plan discussed with: Patient, Other (Nurse) My Orders Orders - LIANNE ARIAS MD Procedure Category Date Status Time Ct Angio Chest CT 02/08/25 Resulted Contrast 15:35 *Consult CONS 02/09/25 Transmitted / 03:58 Date of Service: Feb 09, 2025 Billing Provider: LIANNE ARIAS MD Common Visit Codes: [id number] INP/OBS CARE(HIGH) LIANNE ARIAS MD Feb 09, 2025 15:21
[2025-02-09] MEDS: PIPERACILLIN-TAZOB 3.375GM 100 ML IV ONE (16:19)
--- NOTE | 2025-02-09 19:19 | DVHNC2 ---
Procedure - Ultrasound-guided thoracentesis procedure note: Physician: Dr Les Garrett Date: 02/09/2025 Time: 1904 Vocational Examiner: IVELISSE Alejandre Consent: Consent was obtained from patient's healthcare proxy prior to procedure . Indication, risks, and benefits were explained at length. Procedure summary: A time-out was performed and a chest x-ray was reviewed prior to procedure. The appropriate site was confirmed and marked. My hands were washed immediately prior to the procedure, I wore a surgical cap, mask with protective eyewear, sterile gown and sterile gloves throughout the procedure. The patient was prepped and draped in a sterile manner using chlorhexidine scrub after the appropriate level was percussed and confirmed by ultrasound. 1% lidocaine was used to anesthetize the skin, subcutaneous tissue, superior aspect of the rib periosteum and parietal pleura. A finder needle was then introduced over the superior aspect of the rib to locate the pleural fluid; christina fluid was aspirated. Thoracentesis needle was then introduced through the skin incision into the pleural space using negative aspiration pressure. The thoracentesis catheter was then threaded without difficulty. 750 mL's of CHRISTINA colored fluid were removed without difficulty. The catheter was then removed. No immediate complications were noted during the procedure. A post-procedure chest x-ray is pending at the time of this note. The pleural fluid will be sent for cultures and cytology. Estimated blood loss is less than 5 mL's. CPT: 92162 ZAFAR GARRETT MD Feb 09, 2025 19:19
--- NOTE | 2025-02-09 19:50 | DVH ---
CHEST RADIOGRAPH REASON FOR EXAM: s/p right thoracentesis. r/o PTX. Pleural effusion. COMPARISON: CT CT ANGIO CHEST CONTRAST on DOS: 02/08/25, XY CHEST PORTABLE on DOS: 02/07/25 TECHNIQUE: One view of the chest is provided FINDINGS: The lung apices are excluded from view. There is no large pneumothorax. There are small emerald ateral pleural effusions. The cardiomediastinal silhouette is enlarged. There is right middle and rig ht lower lobe airspace disease, possibly compressive atelectasis. IMPRESSION: Small bilateral pleural effusions. The lung apices are excluded from view and small pneumothorax can not be ruled out. There is no large pneumothorax.
[2025-02-09] MEDS: AMIODARONE 360mg/200mL PREMIX 200 ML IV SCH (20:16)
[2025-02-09] MEDS: APIXABAN 5 MG TAB PO SCH (22:52)
[2025-02-09] MEDS: MELATONIN 5 MG TAB PO ONE (22:52)
[2025-02-09] MEDS: PIPERACILLIN-TAZOB 3.375GM 100 ML IV SCH (22:55)
--- NOTE | 2025-02-09 23:22 | DVHINCON2 ---
Date of service: Feb 09, [address] Tarango [facility] [place] Reason for Consultation Acute hypoxic respiratory failure, pleural effusion and pneumonia History of Present Illness An 84-year-old woman with past medical history of AFib on Eliquis, hypertension, type 2 diabetes mellitus, hypothyroidism, hyperlipidemia presented to the ED on 02/07/25 with a complaint of right-sided chest pain and shortness of breath x24 hours. The patient reported intermittent chest pain and shortness of breath for the past 6 weeks, getting worse. Pain is described as sharp, in the right lower part of the chest, 9/10, radiates to the back, associated with shortness of breath.. Patient also c/o fever and chills, runny nose for the same duration. 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 ED workup notable for WBC 14.2, D-DIMER 1.16, Na 129, TROP is negative. Chest x- ray showed right lower lung zone opacity with obscuration of the right hemidiaphragm which may be from small to moderate pleural effusion, atelectasis/pneumonia. BLE Venous US is negative for DVT. Patient was admitted for further care; and pulmonary consultation is requested for evaluation and management of acute hypoxic respiratory failure, pleural effusion and pneumonia Review of Systems: 14-point review of systems negative unless otherwise noted above. Past Medical History: AFib on Eliquis, hypertension, type 2 diabetes mellitus, hypothyroidism, hyperlipidemia Past Surgical History: None Medications: Reviewed. Allergies: No known drug allergies. Family History: Mother with hx of CVA. Social History: Nonsmoker. No alcohol or illicit drug use. Family History: Cerebrovascular accident (CVA) G8 MOTHER Allergies: Coded Allergies: NO KNOWN ALLERGIES (Unverified , 09/14/18) Home Meds No Active Prescriptions or Reported Meds Current Medications Current Medications Medications (Trade) Dose Ordered Sig/Amna Route PRN Reason Start Time Stop Time Status Last Admin Azithromycin 250 ml @ 125 mls/hr DAILY IV 02/09/25 10:00 02/09/25 15:28 DC 02/09/25 10:28 Ceftriaxone Sodium 50 ml @ 100 mls/hr DAILY@09 IV 02/09/25 09:00 02/09/25 15:28 DC 02/09/25 10:28 Apixaban (Eliquis) 5 mg BID PO 02/09/25 22:00 02/09/25 22:52 Piperacillin Sod/ Tazobactam Sod 100 ml @ 25 mls/hr Q8HR IV 02/09/25 22:00 02/09/25 22:55 Vital Signs Vital Signs Date Time Temp Pulse Resp B/P (MAP) Pulse Ox O2 Delivery O2 Flow Rate FiO2 02/09/25 22:54 94 132/49 02/09/25 21:00 97.0 18 98 97.0 02/09/25 08:00 Nasal Cannula* 2 28 Physical Exam Gen.: Patient lying in bed in no apparent distress. On supplemental oxygen. Head: Normocephalic, atraumatic. Eyes: EOMI/PERRLA. Ears: Normal hearing. Normal anatomy. Neck/trachea: Trachea midline, supple. Nose: Normal external anatomy. Mouth: Moist mucous membranes. Chest: Decreased air entry bilaterally. No wheezing or rhonchi. Cardiovascular: Positive S1, positive S2. Regular rate and rhythm. Abdomen: Positive bowel sounds in all 4 quadrants. Soft, non-tender, non- distended. : Deferred. Rectal: Deferred. Skin: Warm, dry. Intact. Extremities: 2+ radial pulses bilaterally. No lower extremity edema. Neuro: Awake, alert, oriented x3. No gross motor or sensory deficits. Cranial nerves II through XII intact. Gait not assessed. Labs/Diagnostic Data Labs Test 02/09/25 19:37 02/09/25 07:04 02/07/25 21:17 02/07/25 20:10 Range/Units Body Fluid Source Pleural fluid Body Fluid pH 8.0 Body Fluid WBC (Manual) 745 H 0-200 CUMM Body Fluid RBC (Manual) 1285 0-2000 CUMM Body Fluid Mononuclear Cells 37 % Body Fluid Polymorphonuclear Cells 63 H 0-25 % White Blood Count 18.9 H 4.4-10.8 10^3/uL Red Blood Count 4.42 4.0-5.20 10^6/uL Hemoglobin 13.4 12.2-16.2 g/dL Hematocrit 40.0 36.0-46.0 % Mean Corpuscular Volume 90.6 80.0-100.0 fL Mean Corpuscular Hemoglobin 30.3 28.0-32.0 pg Mean Corpuscular Hemoglobin Concent 33.5 32.0-36.0 g/dL Red Cell Distribution Width 13.4 11.8-14.3 % Platelet Count 290 140-450 10^3/uL Mean Platelet Volume 7.5 6.9-10.8 fL Neutrophils (%) (Auto) 86.8 H 37.0-80.0 % Lymphocytes (%) (Auto) 4.3 L 10.0-50.0 % Monocytes (%) (Auto) 8.4 0.0-12.0 % Eosinophils (%) (Auto) 0.4 0.0-7.0 % Basophils (%) (Auto) 0.1 0.0-2.0 % Neutrophils # (Auto) 16.4 H 1.6-8.6 10 ^3/uL Lymphocytes # (Auto) 0.8 0.4-5.4 10 ^3/uL Monocytes # (Auto) 1.6 H 0-1.3 10 ^3/uL Eosinophils # (Auto) 0.1 0-0.8 10 ^3/uL Basophils # (Auto) 0 0-0.2 10 ^3/uL Nucleated Red Blood Cells 0.0 % Sodium Level 124 #L 136-145 mmol/L Potassium Level 5.2 H 3.5-5.1 mmol/L Chloride Level 93 L 98-107 mmol/L Carbon Dioxide Level 23 20-31 mmol/L Anion Gap 8 5-15 Blood Urea Nitrogen 17 9-23 mg/dL Creatinine 0.61 0.550-1.02 mg/dL Glomerular Filtration Rate Calc 87 >90 mL/min BUN/Creatinine Ratio 27.9 H 10.0-20.0 Serum Glucose 112 H 74-106 mg/dL Calcium Level 9.0 8.7-10.4 mg/dL Total Bilirubin 0.7 0.2-1.0 mg/dL Aspartate Amino Transferase (AST) 31 13-40 U/L Alanine Aminotransferase (ALT) 52 H 7-40 U/L Alkaline Phosphatase 161 H 46-116 U/L Total Protein 5.9 5.7-8.2 g/dL Albumin 3.5 3.2-4.8 g/dL Lactic Acid Level 1.2 0.4-2.0 mmol/L Troponin I High Sensitivity < 3 L </=34 ng/L Influenza Type A Antigen Negative Negative Influenza Type B Antigen Negative Negative SARS-CoV-2 Antigen (Rapid) Negative NEGATIVE Test 02/07/25 18:05 Range/Units D-Dimer, Quantitative 1.16 H 0.0-0.49 mg/L FEU B-Type Natriuretic Peptide 140.34 0-100 pg/mL Microbiology Date/Time Source Procedure Growth Status 02/07/25 21:17 Blood Blood Culture - Preliminary NO GROWTH AFTER 48 HOURS OF INCUBATION. Resulted Assessment Impression: Acute hypoxic respiratory failure Dependence on supplemental oxygen Pleural effusion Atelectasis Pneumonia, likely GNR Mediastinal lymphadenopathy, likely reactive Atrial flutter Plan: Supplemental oxygen Currently on 4 LPM NC Titrate to keep O2 sats above 92%. Taper O2 as tolerated. On amiodarone drip On Eliquis Continue antibiotics Incentive spirometry S/p right thoracentesis today with drainage of 750 mL from right pleural space. See separate procedure note for details Monitor renal function. Monitor electrolytes. Supplement as necessary. Monitor ins and outs. DVT prophylaxis. Prognosis: Poor given patient's multiple co-morbidities. Rest of plan per hospitalist and other consultants. Thank you Dr. Tarango for allowing me to participate in this patient's care. Further recommendations will depend on the patient's clinical course. Please do not hesitate to contact me if you have any questions or concerns. This medical document was created using an electronic medical record system with [employer] dictation system. Although these documentations are being carefully reviewed, there may still be some phonetic and typographical changes. The errors are purely typographical, due to imperfection on the software program, and do not reflect any compromise in the patient's medical care. Plan discussed with: Patient, Other (IVELISSE Alejandre/Dr. Tarango) ZAFAR AHUMADA MD Feb 09, 2025 23:22
--- NOTE | 2025-02-09 23:47 | DVHPN2 ---
Progress Note - Dictate Date Seen: Feb 09, 2025 Medical Necessity Reason Pt with a Central, PICC or Fol: No Subjective Patient was seen and evaluated in follow up. Patient complains of generalized discomfort. Echocardiogram showed an EF of 60%. 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 WBC 18.9, NA 124, K 5.2, CL 93, ALT 52. CTA Chest showed no evidence of a pulmonary embolism, aneurysm, or dissection. Peripheral nodular opacities in the left lower lobe may reflect an infectious/inflammatory etiology. Large right pleural effusion with right lower lobe compressive atelectasis. Mildly prominent mediastinal nodes, favored reactive. Small pericardial effusion. Telemetry reviewed. vital signs Vital Sign Date Time Temp Pulse Resp B/P (MAP) Pulse Ox O2 Delivery O2 Flow Rate FiO2 02/09/25 10:27 138 146/72 02/09/25 09:00 98.3 17 95 98.3 02/09/25 08:00 Nasal Cannula* 2 28 Total Intake and Output 02/08/25 02/08/25 02/09/25 15:00 23:00 07:00 Intake Total 240 ml 700 ml 500 ml Balance 240 ml 700 ml 500 ml medications Current Medications Medications Dose Ordered Sig/Amna Route Start Time Stop Time Status Last Admin Dose Admin Ondansetron HCl 4 mg Q4HP PRN IV 02/07/25 22:45 02/08/25 12:33 4 MG Nitroglycerin 0.4 mg Q5MINP PRN SL 02/07/25 22:45 Metoprolol Tartrate 25 mg BID PO 02/08/25 10:00 02/09/25 10:27 25 MG Enoxaparin Sodium 60 mg Q12HR SC 02/08/25 07:00 02/09/25 10:27 60 MG Acetaminophen/ Hydrocodone Bitart 1 tab Q6HPRN PRN PO 02/08/25 13:00 02/09/25 06:00 1 TAB Azithromycin 250 ml @ 125 mls/hr DAILY IV 02/09/25 10:00 02/09/25 10:28 125 MLS/HR Ceftriaxone Sodium 50 ml @ 100 mls/hr DAILY@09 IV 02/09/25 09:00 02/09/25 10:28 100 MLS/HR objective GENERAL: Alert and oriented x 3. No acute distress. EYES: PERRL, EOMI. Anicteric. HENT: Moist mucous membranes. LUNGS: Clear to auscultation bilaterally. CARDIOVASCULAR: Regular rate and rhythm. ABDOMEN: Soft, nontender and nondistended. EXTREMITIES: No edema. NEUROLOGIC: No focal neurological deficits. SKIN: Warm, dry. laboratory and microbiology Laboratory Tests 02/09/25 07:04 Test 02/09/25 07:04 Range/Units Serum Glucose 112 H 74-106 mg/dL Problem List Chest pain. Pneumonia. Hyponatremia. AFib on Eliquis. Hypertension. Type 2 diabetes mellitus. Hypothyroidism. Hyperlipidemia. Assessment/Plan Continued all current supportive medical care. Amiodarone. IV antibiotics as ordered. DVT prophylactics. Metoprolol. Nitro SL. [place] for pain management. Additional plan as per the hospital course. Plan discussed with: Patient ABBEY VARELA MD Feb 09, 2025 13:38
[2025-02-10] VITALS (7 sets, daily range): BP systolic 118–146; BP diastolic 69–83; PULSE 89–109; RESP 18–20; TEMP 97.6–98.3; O2SAT 95–98
[2025-02-10] MEDS: LORazepam 0.5 MG TAB PO ONE (03:45)
--- NOTE | 2025-02-10 13:23 | DVHPN2 ---
Progress Note Date Seen: Feb 10, 2025 Medical Necessity Reason Pt with a Central, PICC or Fol: No Subjective Patient reports: No new complaints Review of Systems: HEENT:Normal, CVS:Normal, RESPIRATORY:Normal, GI:Normal, :Normal, MSK:Normal, NEURO:Normal Objective vital signs Vital Sign Date Time Temp Pulse Resp B/P (MAP) Pulse Ox O2 Delivery O2 Flow Rate FiO2 02/10/25 10:51 104 133/73 02/10/25 09:16 97.7 18 96 97.7 02/10/25 07:50 Nasal Cannula* 2 28 Total Intake and Output 02/09/25 02/09/25 02/10/25 15:00 23:00 07:00 Intake Total 1400 ml 1056 ml 200 ml Balance 1400 ml 1056 ml 200 ml medications Current Medications Medications Dose Ordered Sig/Amna Route Start Time Stop Time Status Last Admin Dose Admin Ondansetron HCl 4 mg Q4HP PRN IV 02/07/25 22:45 02/10/25 11:10 4 MG Nitroglycerin 0.4 mg Q5MINP PRN SL 02/07/25 22:45 Metoprolol Tartrate 25 mg BID PO 02/08/25 10:00 02/10/25 09:51 25 MG Acetaminophen/ Hydrocodone Bitart 1 tab Q6HPRN PRN PO 02/08/25 13:00 02/10/25 07:51 1 TAB Apixaban 5 mg BID PO 02/09/25 22:00 02/10/25 09:50 5 MG Piperacillin Sod/ Tazobactam Sod 100 ml @ 25 mls/hr Q8HR IV 02/09/25 22:00 02/09/25 22:55 25 MLS/HR Examination: GENERAL:Normal, HEENT:Normal, NECK:Normal, LUNGS:Normal, LUNGS:Abnormal (oxygen), CVS:Normal, CVS:Abnormal (irregular), ABDOMEN:Normal, MSK:Normal, MSK:Abnormal (edema++), SKIN:Normal, NEURO:Normal, :Normal laboratory and microbiology Laboratory Tests 02/09/25 07:04 Test 02/09/25 07:04 Range/Units Serum Glucose 112 H 74-106 mg/dL Microbiology Date/Time Source Procedure Growth Status 02/09/25 19:37 Pleural Fluid Gram Stain - Final Resulted 02/09/25 19:37 Pleural Fluid Body Fluid Culture - Preliminary Resulted 02/07/25 21:17 Blood Blood Culture - Preliminary NO GROWTH AFTER 48 HOURS OF INCUBATION. Resulted Problem List/Assessment/Plan Problem List/Assessment/Plan #1 acute resp failure: cont oxygen #2 acute diastolic heart failure: lasix iv #3 a fib with rvr: amiodarone drip, eliquis #4 hyponatremia: free water restriction #5 right effusion s/p thoracentesis #6 ?pneumonia/sepsis: iv antibiotics #7 htn #8 transaminitis advance care planning- full code- time spent 19 mins Plan discussed with: Patient My Orders My Orders Orders - KEVON APPLE MD Procedure Category Date Status Time Furosemide Injection PHA 02/10/25 Verified (Lasix Injection) 13:15 Furosemide Injection PHA 02/10/25 Verified (Lasix Injection) 18:00 Free Water Restriction PEDRITO 02/10/25 Verified 13:06 Urinalysis LAB 02/10/25 Uncollected 13:06 Pt Request For Service PT 02/10/25 Verified 13:06 Basic Metabolic Panel LAB 02/11/25 Verified 06:00 Complete Blood Count LAB 02/11/25 Verified 06:00 Date of Service: Feb 10, 2025 Billing Provider: KEVON APPLE MD Common Visit Codes: [id number] INP/OBS CARE(HIGH) Secondary Visit Codes: [id number] CARE PLAN 30 MINUTES KEVON APPLE MD Feb 10, 2025 13:23
[2025-02-10] MEDS: FUROSEMIDE 20 MG/2 ML VIAL IV ONE (13:57)
--- NOTE | 2025-02-10 16:56 | DVHINCON2 ---
Date of service: Feb 10, 2025 Reason for Consultation hyponatremia History of Present Illness 84-year-old female past medical history of congestive heart failure reports not on diuretics, atrial fibrillation on Eliquis who presents to the hospital complaining of six weeks of shortness of breath. She was admitted with a diagnosis of congestive heart failure. She was consulted due to low sodium level. Patient was noted to have large right pleural effusion status post thoracentesis. Presently on my exam patient is still visibly short of breath when speaking full sentences Allergies: Coded Allergies: NO KNOWN ALLERGIES (Unverified , 09/14/18) Home Meds No Active Prescriptions or Reported Meds Current Medications Current Medications Medications (Trade) Dose Ordered Sig/Amna Route PRN Reason Start Time Stop Time Status Last Admin Apixaban (Eliquis) 5 mg BID PO 02/09/25 22:00 02/10/25 09:50 Piperacillin Sod/ Tazobactam Sod 100 ml @ 25 mls/hr Q8HR IV 02/09/25 22:00 02/10/25 14:04 Furosemide (Lasix Injection) 20 mg BIDD IV 02/10/25 18:00 Family History: Cerebrovascular accident (CVA) G8 MOTHER Review of Systems Shortness of breath H&P Exam Vital Signs/I&O Vital Sign Date Time Temp Pulse Resp B/P (MAP) Pulse Ox O2 Delivery O2 Flow Rate FiO2 02/10/25 13:57 129/81 02/10/25 13:00 98.0 98 18 96 98.0 02/10/25 07:50 Nasal Cannula* 2 28 Intake and Output 02/09/25 02/10/25 19:00 07:00 Intake Total 2456 ml 200 ml Balance 2456 ml 200 ml Intake Oral 900 ml 200 ml IV Total 1556 ml # Voids 2 Physical Exam Elderly white female Visibly short of breath appears in distress requiring oxygen Poor inspiratory effort on the right side with dullness. Irregular irregular rate and rhythm Trace ankle edema Bruises noted on bilateral arms and legs ecchymosis Labs/Diagnostic Data Labs/Diagnostic Data Laboratory Tests Test 02/09/25 19:37 02/09/25 07:04 02/08/25 06:29 02/07/25 21:17 Range/Units Body Fluid Source Pleural fluid Body Fluid pH 8.0 Body Fluid WBC (Manual) 745 H 0-200 CUMM Body Fluid RBC (Manual) 1285 0-2000 CUMM Body Fluid Mononuclear Cells 37 % Body Fluid Polymorphonuclear Cells 63 H 0-25 % White Blood Count 18.9 H 17.1 H 4.4-10.8 10^3/uL Red Blood Count 4.42 4.35 4.0-5.20 10^6/uL Hemoglobin 13.4 13.5 12.2-16.2 g/dL Hematocrit 40.0 38.6 36.0-46.0 % Mean Corpuscular Volume 90.6 88.7 80.0-100.0 fL Mean Corpuscular Hemoglobin 30.3 31.1 28.0-32.0 pg Mean Corpuscular Hemoglobin Concent 33.5 35.0 32.0-36.0 g/dL Red Cell Distribution Width 13.4 13.4 11.8-14.3 % Platelet Count 290 289 140-450 10^3/uL Mean Platelet Volume 7.5 7.9 6.9-10.8 fL Neutrophils (%) (Auto) 86.8 H 86.1 H 37.0-80.0 % Lymphocytes (%) (Auto) 4.3 L 4.9 L 10.0-50.0 % Monocytes (%) (Auto) 8.4 8.8 0.0-12.0 % Eosinophils (%) (Auto) 0.4 0.1 0.0-7.0 % Basophils (%) (Auto) 0.1 0.1 0.0-2.0 % Neutrophils # (Auto) 16.4 H 14.7 H 1.6-8.6 10 ^3/uL Lymphocytes # (Auto) 0.8 0.8 0.4-5.4 10 ^3/uL Monocytes # (Auto) 1.6 H 1.5 H 0-1.3 10 ^3/uL Eosinophils # (Auto) 0.1 0 0-0.8 10 ^3/uL Basophils # (Auto) 0 0 0-0.2 10 ^3/uL Nucleated Red Blood Cells 0.0 0.1 % Sodium Level 124 #L 129 L 136-145 mmol/L Potassium Level 5.2 H 4.5 3.5-5.1 mmol/L Chloride Level 93 L 96 L 98-107 mmol/L Carbon Dioxide Level 23 22 20-31 mmol/L Anion Gap 8 11 5-15 Blood Urea Nitrogen 17 14 9-23 mg/dL Creatinine 0.61 0.82 0.550-1.02 mg/dL Glomerular Filtration Rate Calc 87 70 >90 mL/min BUN/Creatinine Ratio 27.9 H 17.1 10.0-20.0 Serum Glucose 112 H 107 H 74-106 mg/dL Calcium Level 9.0 9.1 8.7-10.4 mg/dL Total Bilirubin 0.7 1.0 0.2-1.0 mg/dL Aspartate Amino Transferase (AST) 31 38 13-40 U/L Alanine Aminotransferase (ALT) 52 H 71 H 7-40 U/L Alkaline Phosphatase 161 H 126 H 46-116 U/L Total Protein 5.9 6.0 5.7-8.2 g/dL Albumin 3.5 3.6 3.2-4.8 g/dL Lactic Acid Level 1.2 0.4-2.0 mmol/L Troponin I High Sensitivity < 3 L </=34 ng/L Test 02/07/25 20:10 02/07/25 19:36 02/07/25 18:05 Range/Units Influenza Type A Antigen Negative Negative Influenza Type B Antigen Negative Negative SARS-CoV-2 Antigen (Rapid) Negative NEGATIVE Lactic Acid Level 2.4 *H 0.4-2.0 mmol/L Troponin I High Sensitivity < 3 L < 3 L </=34 ng/L White Blood Count 14.2 H 4.4-10.8 10^3/uL Red Blood Count 4.79 4.0-5.20 10^6/uL Hemoglobin 14.6 12.2-16.2 g/dL Hematocrit 42.3 36.0-46.0 % Mean Corpuscular Volume 88.4 80.0-100.0 fL Mean Corpuscular Hemoglobin 30.6 28.0-32.0 pg Mean Corpuscular Hemoglobin Concent 34.6 32.0-36.0 g/dL Red Cell Distribution Width 13.3 11.8-14.3 % Platelet Count 327 140-450 10^3/uL Mean Platelet Volume 7.7 6.9-10.8 fL Neutrophils (%) (Auto) 87.7 H 37.0-80.0 % Lymphocytes (%) (Auto) 4.4 L 10.0-50.0 % Monocytes (%) (Auto) 7.6 0.0-12.0 % Eosinophils (%) (Auto) 0.1 0.0-7.0 % Basophils (%) (Auto) 0.2 0.0-2.0 % Neutrophils # (Auto) 12.4 H 1.6-8.6 10 ^3/uL Lymphocytes # (Auto) 0.6 0.4-5.4 10 ^3/uL Monocytes # (Auto) 1.1 0-1.3 10 ^3/uL Eosinophils # (Auto) 0 0-0.8 10 ^3/uL Basophils # (Auto) 0 0-0.2 10 ^3/uL Nucleated Red Blood Cells 0.1 % D-Dimer, Quantitative 1.16 H 0.0-0.49 mg/L FEU Sodium Level 129 L 136-145 mmol/L Potassium Level 4.3 3.5-5.1 mmol/L Chloride Level 95 L 98-107 mmol/L Carbon Dioxide Level 26 20-31 mmol/L Anion Gap 8 5-15 Blood Urea Nitrogen 13 9-23 mg/dL Creatinine 0.76 0.550-1.02 mg/dL Glomerular Filtration Rate Calc 76 >90 mL/min BUN/Creatinine Ratio 17.1 10.0-20.0 Serum Glucose 129 H 74-106 mg/dL Calcium Level 9.0 8.7-10.4 mg/dL B-Type Natriuretic Peptide 140.34 0-100 pg/mL Assessment 84-year-old female past medical history of congestive heart failure presents to the hospital with shortness of breath and dyspnea. She was found to have large pleural effusion. Nephrology consulted for hyponatremia. Hyponatremia in hypervolemia Diastolic heart failure with RV failure Atrial fibrillation on Eliquis Preserved renal function CKD II Hyperkalemia Agree with diuretic therapy Recommend fluid restriction Recommend obtaining urine osmolarity and serum osmolarity May require dual versus triple diuretic therapy to achieve diuresis If patient is still has persistent pleural effusion then recommend draining again as needed Pulmonology Cardiology Low-salt diet Rest of care as per primary medical team Care time 50 minutes Plan discussed with: Patient ROSEMARIE MCKEON MD Feb 10, 2025 16:56
[2025-02-10 17:25] LABS: Urine Protein, UAD Negative (Negative)
[2025-02-10] MEDS: FUROSEMIDE 20 MG/2 ML VIAL IV SCH (17:40)
--- NOTE | 2025-02-10 22:40 | DVHPN2 ---
Progress Note - Dictate Date Seen: Feb 10, 2025 Medical Necessity Reason Pt with a Central, PICC or Fol: No Subjective Patient was seen and evaluated in follow up. Overnight, per RN, the patient was noted with sudden onset of confusion and AMS. Patient refused vitals and medications. Patient complains of generalized discomfort. Patient is in A-fib on the cardiac cath technician. Chest x-ray shows small bilateral pleural effusions. The lung apices are excluded from view and small pneumothorax can not be ruled out. Telemetry reviewed. vital signs Vital Sign Date Time Temp Pulse Resp B/P (MAP) Pulse Ox O2 Delivery O2 Flow Rate FiO2 02/10/25 10:51 104 133/73 02/10/25 09:16 97.7 18 96 97.7 02/10/25 07:50 Nasal Cannula* 2 28 Total Intake and Output 02/09/25 02/09/25 02/10/25 15:00 23:00 07:00 Intake Total 1400 ml 1056 ml 200 ml Balance 1400 ml 1056 ml 200 ml medications Current Medications Medications Dose Ordered Sig/Amna Route Start Time Stop Time Status Last Admin Dose Admin Ondansetron HCl 4 mg Q4HP PRN IV 02/07/25 22:45 02/10/25 11:10 4 MG Nitroglycerin 0.4 mg Q5MINP PRN SL 02/07/25 22:45 Metoprolol Tartrate 25 mg BID PO 02/08/25 10:00 02/10/25 09:51 25 MG Acetaminophen/ Hydrocodone Bitart 1 tab Q6HPRN PRN PO 02/08/25 13:00 02/10/25 07:51 1 TAB Apixaban 5 mg BID PO 02/09/25 22:00 02/10/25 09:50 5 MG Piperacillin Sod/ Tazobactam Sod 100 ml @ 25 mls/hr Q8HR IV 02/09/25 22:00 02/09/25 22:55 25 MLS/HR Furosemide 20 mg BIDD IV 02/10/25 18:00 objective GENERAL: Alert and oriented x 3. No acute distress. EYES: PERRL, EOMI. Anicteric. HENT: Moist mucous membranes. LUNGS: Clear to auscultation bilaterally. CARDIOVASCULAR: Regular rate and rhythm. ABDOMEN: Soft, nontender and nondistended. EXTREMITIES: No edema. NEUROLOGIC: No focal neurological deficits. SKIN: Warm, dry. laboratory and microbiology Laboratory Tests 02/09/25 07:04 Test 02/09/25 07:04 Range/Units Serum Glucose 112 H 74-106 mg/dL Problem List Chest pain. Pneumonia. Hyponatremia. AFib on Eliquis. Hypertension. Type 2 diabetes mellitus. Hypothyroidism. Hyperlipidemia. Assessment/Plan Continued all current supportive medical care. Albin for pain management. Eliquis. Diuretics with Lasix. Metoprolol. Nitro SL. IV antibiotics as ordered. Additional plan as per the hospital course. Plan discussed with: Patient ABBEY VARELA MD Feb 10, 2025 13:41
--- NOTE | 2025-02-10 23:53 | DVHPN2 ---
Progress Note - Dictate Date Seen: Feb 10, 2025 Medical Necessity Reason Pt with a Central, PICC or Fol: No Subjective [facility] Patient seen and examined at bedside. Remains on supplemental oxygen Overnight events reviewed. vital signs Vital Sign Date Time Temp Pulse Resp B/P (MAP) Pulse Ox O2 Delivery O2 Flow Rate FiO2 02/10/25 21:40 98 118/69 02/10/25 21:00 98.3 20 98 98.3 02/10/25 20:00 Nasal Cannula* 2 28 Total Intake and Output 02/09/25 02/09/25 02/10/25 15:00 23:00 07:00 Intake Total 1400 ml 1056 ml 200 ml Balance 1400 ml 1056 ml 200 ml medications Current Medications Medications Dose Ordered Sig/Amna Route Start Time Stop Time Status Last Admin Dose Admin Ondansetron HCl 4 mg Q4HP PRN IV 02/07/25 22:45 02/10/25 11:10 4 MG Nitroglycerin 0.4 mg Q5MINP PRN SL 02/07/25 22:45 Metoprolol Tartrate 25 mg BID PO 02/08/25 10:00 02/10/25 21:40 25 MG Acetaminophen/ Hydrocodone Bitart 1 tab Q6HPRN PRN PO 02/08/25 13:00 02/10/25 07:51 1 TAB Apixaban 5 mg BID PO 02/09/25 22:00 02/10/25 21:39 5 MG Piperacillin Sod/ Tazobactam Sod 100 ml @ 25 mls/hr Q8HR IV 02/09/25 22:00 02/10/25 21:39 25 MLS/HR Furosemide 20 mg BIDD IV 02/10/25 18:00 02/10/25 17:40 20 MG objective Gen.: Patient lying in bed in no apparent distress. On supplemental oxygen. Head: Normocephalic, atraumatic. Eyes: EOMI/PERRLA. Ears: Normal hearing. Normal anatomy. Neck/trachea: Trachea midline, supple. Nose: Normal external anatomy. Mouth: Moist mucous membranes. Chest: Decreased air entry bilaterally. No wheezing or rhonchi. Cardiovascular: Positive S1, positive S2. Regular rate and rhythm. Abdomen: Positive bowel sounds in all 4 quadrants. Soft, non-tender, non- distended. : Deferred. Rectal: Deferred. Skin: Warm, dry. Intact. Extremities: 2+ radial pulses bilaterally. No lower extremity edema. Neuro: Awake, alert, oriented x3. No gross motor or sensory deficits. Cranial nerves II through XII intact. Gait not assessed. laboratory and microbiology Laboratory Tests 02/09/25 07:04 Test 02/09/25 07:04 Range/Units Serum Glucose 112 H 74-106 mg/dL Assessment/Plan Impression: Acute hypoxic respiratory failure Dependence on supplemental oxygen Pleural effusion Atelectasis Pneumonia, likely GNR Mediastinal lymphadenopathy, likely reactive Atrial flutter Events: Remains on supplemental oxygen Improved O2 requirements - down to 3 LPM NC Taper O2 as tolerated Patient on Lasix and metolazone for diuresis. Note, patient had delirium overnight and metolazone was stopped On amiodarone for AFib. Eliquis BID Cardiology recs appreciated. We will assess for pleural fluid recurrence to assess response to Lasix and metolazone. Continue antibiotics Incentive spirometry Updated son at bedside. Labs and imaging reviewed. Rest of plan as noted below. Plan: Supplemental oxygen Titrate to keep O2 sats above 92%. On amiodarone On Eliquis Blood pressure control Continue antibiotics Incentive spirometry S/p right thoracentesis on 02/09/25 with drainage of 750 mL from right pleural space. See separate procedure note for details Monitor renal function. Monitor electrolytes. Supplement as necessary. Monitor ins and outs. DVT prophylaxis. Prognosis: Poor given patient's multiple co-morbidities. Rest of plan per hospitalist and other consultants. Thank you Dr. Tarango for allowing me to participate in this patient's care. Further recommendations will depend on the patient's clinical course. Please do not hesitate to contact me if you have any questions or concerns. This medical document was created using an electronic medical record system with [employer] dictation system. Although these documentations are being carefully reviewed, there may still be some phonetic and typographical changes. The errors are purely typographical, due to imperfection on the software program, and do not reflect any compromise in the patient's medical care. Plan discussed with: Patient, Other (IVELISSE Gross) ZAFAR AHUMADA MD Feb 10, 2025 23:52
[2025-02-11] VITALS (8 sets, daily range): BP systolic 103–117; BP diastolic 59–82; PULSE 82–126; RESP 16–20; TEMP 97.1–97.9; O2SAT 98–99
[2025-02-11 10:32] LABS: Anion Gap 7 (5-15); Carbon Dioxide 31 mmol/L (20-31)
[2025-02-11 10:38] LABS: BUN/Creatinine Ratio 56.1 (10.0-20.0)
[2025-02-11 10:40] LABS: Hematocrit 25.2 % (36.0-46.0); Hemoglobin 8.9 g/dL (12.2-16.2); Mean Corpuscular Hemoglobin 30.9 pg (28.0-32.0); Mean Corpuscular Volume 87.4 fL (80.0-100.0); Nucleated Red Blood Cells % 0.0 %
[2025-02-11 10:46] LABS: Triglycerides 113 mg/dL (< 150)
[2025-02-11 10:48] LABS: Cholesterol 90 mg/dL (< 200)
[2025-02-11 10:53] LABS: Blood Urea Nitrogen 37 mg/dL (9-23); Calcium 8.0 mg/dL (8.7-10.4); Chloride 85 mmol/L (98-107); Glucose 136 mg/dL (74-106); Potassium 3.3 mmol/L (3.5-5.1); Sodium 123 mmol/L (136-145)
[2025-02-11 10:54] LABS: HDL Cholesterol 13 mg/dL (40-59)
--- NOTE | 2025-02-11 11:15 | DVHPN2 ---
Progress Note Date Seen: Feb 11, 2025 Medical Necessity Reason Pt with a Central, PICC or Fol: No Subjective Patient reports: No new complaints Review of Systems: HEENT:Normal, CVS:Normal, RESPIRATORY:Normal, GI:Normal, :Normal, MSK:Normal, NEURO:Normal Objective vital signs Vital Sign Date Time Temp Pulse Resp B/P (MAP) Pulse Ox O2 Delivery O2 Flow Rate FiO2 02/11/25 09:17 105 112/59 02/11/25 07:50 18 99 Nasal Cannula* 3 32 02/11/25 05:21 97.7 97.7 Total Intake and Output 02/10/25 02/10/25 02/11/25 14:59 22:59 06:59 Intake Total 825 ml 750 ml Output Total 500 ml Balance 325 ml 750 ml medications Current Medications Medications Dose Ordered Sig/Amna Route Start Time Stop Time Status Last Admin Dose Admin Ondansetron HCl 4 mg Q4HP PRN IV 02/07/25 22:45 02/10/25 11:10 4 MG Nitroglycerin 0.4 mg Q5MINP PRN SL 02/07/25 22:45 Metoprolol Tartrate 25 mg BID PO 02/08/25 10:00 02/11/25 09:17 25 MG Acetaminophen/ Hydrocodone Bitart 1 tab Q6HPRN PRN PO 02/08/25 13:00 02/11/25 09:16 1 TAB Apixaban 5 mg BID PO 02/09/25 22:00 02/11/25 09:15 5 MG Piperacillin Sod/ Tazobactam Sod 100 ml @ 25 mls/hr Q8HR IV 02/09/25 22:00 02/11/25 05:46 25 MLS/HR Furosemide 20 mg BIDD IV 02/10/25 18:00 02/11/25 05:46 20 MG Examination: GENERAL:Normal, HEENT:Normal, NECK:Normal, LUNGS:Normal, LUNGS:Abnormal (on oxygen), CVS:Normal, ABDOMEN:Normal, MSK:Normal, SKIN:Normal, NEURO:Normal, :Normal laboratory and microbiology Laboratory Tests 02/11/25 09:50 Test 02/11/25 09:50 Range/Units Serum Glucose 136 H 74-106 mg/dL Microbiology Date/Time Source Procedure Growth Status 02/09/25 19:37 Pleural Fluid Gram Stain - Final Resulted 02/09/25 19:37 Pleural Fluid Body Fluid Culture - Preliminary Resulted 02/07/25 21:17 Blood Blood Culture - Preliminary NO GROWTH AFTER 72 HOURS OF INCUBATION. Resulted Problem List/Assessment/Plan Problem List/Assessment/Plan #1 acute resp failure: cont oxygen #2 acute diastolic heart failure: lasix iv #3 a fib with rvr: amiodarone drip, eliquis #4 hyponatremia: free water restriction #5 right effusion s/p thoracentesis #6 ?pneumonia/sepsis: iv antibiotics #7 htn #8 transaminitis advance care planning- full code- time spent 19 mins Plan discussed with: Patient My Orders My Orders Orders - KEVON APPLE MD Procedure Category Date Status Time Furosemide Injection PHA 02/10/25 In Process (Lasix Injection) 18:00 Free Water Restriction PEDRITO 02/10/25 In Process 13:06 Pt Request For Service PT 02/10/25 Logged 13:06 Date of Service: Feb 11, 2025 Billing Provider: KEVON APPLE MD Common Visit Codes: [id number] INP/OBS CARE(HIGH) KEVON APPLE MD Feb 11, 2025 11:14
[2025-02-11 12:07] LABS: Glucose, Body Fluid 148.0 mg/dL (.); LD, Body Fluid 282.0 IU/L (.)
--- NOTE | 2025-02-11 12:42 | DVHPN2 ---
Progress Note Date Seen: Feb 11, 2025 Medical Necessity Reason Pt with a Central, PICC or Fol: No Subjective Changes from previous H/P or p: No Changes Objective vital signs Vital Sign Date Time Temp Pulse Resp B/P (MAP) Pulse Ox O2 Delivery O2 Flow Rate FiO2 02/11/25 09:17 105 112/59 02/11/25 07:50 18 99 Nasal Cannula* 3 32 02/11/25 05:21 97.7 97.7 Total Intake and Output 02/10/25 02/10/25 02/11/25 15:00 23:00 07:00 Intake Total 825 ml 750 ml Output Total 500 ml Balance 325 ml 750 ml medications Current Medications Medications Dose Ordered Sig/Amna Route Start Time Stop Time Status Last Admin Dose Admin Ondansetron HCl 4 mg Q4HP PRN IV 02/07/25 22:45 02/10/25 11:10 4 MG Nitroglycerin 0.4 mg Q5MINP PRN SL 02/07/25 22:45 Metoprolol Tartrate 25 mg BID PO 02/08/25 10:00 02/11/25 09:17 25 MG Acetaminophen/ Hydrocodone Bitart 1 tab Q6HPRN PRN PO 02/08/25 13:00 02/11/25 09:16 1 TAB Apixaban 5 mg BID PO 02/09/25 22:00 02/11/25 09:15 5 MG Piperacillin Sod/ Tazobactam Sod 100 ml @ 25 mls/hr Q8HR IV 02/09/25 22:00 02/11/25 05:46 25 MLS/HR Furosemide 20 mg BIDD IV 02/10/25 18:00 02/11/25 05:46 20 MG Examination: GENERAL:Abnormal, LUNGS:Abnormal, CVS:Abnormal laboratory and microbiology Laboratory Tests 02/11/25 09:50 Test 02/11/25 09:50 Range/Units Serum Glucose 136 H 74-106 mg/dL Microbiology Date/Time Source Procedure Growth Status 02/09/25 19:37 Pleural Fluid Gram Stain - Final Resulted 02/09/25 19:37 Pleural Fluid Body Fluid Culture - Preliminary Resulted 02/07/25 21:17 Blood Blood Culture - Preliminary NO GROWTH AFTER 72 HOURS OF INCUBATION. Resulted Problem List/Assessment/Plan Problem List/Assessment/Plan 84-year-old female past medical history of congestive heart failure presents to the hospital with shortness of breath and dyspnea. She was found to have large pleural effusion. Nephrology consulted for hyponatremia. Hyponatremia in hypervolemia Diastolic heart failure with RV failure Atrial fibrillation on Eliquis Preserved renal function CKD II Hyperkalemia -> now low K Agree with diuretic therapy rec increase in dose to achieve negative balance Recommend fluid restriction If patient is still has persistent pleural effusion then recommend draining again as needed Pulmonology Cardiology Low-salt diet Rest of care as per primary medical team Plan discussed with: Patient My Orders My Orders Orders - ROSEMARIE MCKEON MD Procedure Category Date Status Time Cardiac DIET 02/10/25 Transmitted Diet-2gna,Lofat,Lochol Dinner Protein LAB 02/11/25 Logged Electrophoresis Serum 09:17 Immunofixation Serum LAB 02/11/25 Logged 09:17 Maintain Fluid PEDRITO 02/11/25 Transmitted Restrictions 12:40 Total Time (mins): 33 ROSEMARIE MCKEON MD Feb 11, 2025 12:42
[2025-02-11] MEDS: POTASSIUM EFFERVESENT TAB 25 MEQ PO ONE (13:24)
[2025-02-11] MEDS: FUROSEMIDE 40 MG/4 ML VIAL IV SCH (18:50)
--- NOTE | 2025-02-11 22:47 | DVHPN2 ---
Progress Note - Dictate Date Seen: Feb 11, 2025 Medical Necessity Reason Pt with a Central, PICC or Fol: No Subjective Patient was seen and evaluated in follow up. Sitter is at bedside. Patient is on 3 LPM NC. WBC 17.6, HGB 8.9, HCT 25.2, NA 123, K 3.3, CL 85, BUN 37, GLUC 265. Telemetry reviewed. vital signs Vital Sign Date Time Temp Pulse Resp B/P (MAP) Pulse Ox O2 Delivery O2 Flow Rate FiO2 02/11/25 09:17 105 112/59 02/11/25 07:50 18 99 Nasal Cannula* 3 32 02/11/25 05:21 97.7 97.7 Total Intake and Output 02/10/25 02/10/25 02/11/25 15:00 23:00 07:00 Intake Total 825 ml 750 ml Output Total 500 ml Balance 325 ml 750 ml medications Current Medications Medications Dose Ordered Sig/Amna Route Start Time Stop Time Status Last Admin Dose Admin Ondansetron HCl 4 mg Q4HP PRN IV 02/07/25 22:45 02/10/25 11:10 4 MG Nitroglycerin 0.4 mg Q5MINP PRN SL 02/07/25 22:45 Metoprolol Tartrate 25 mg BID PO 02/08/25 10:00 02/11/25 09:17 25 MG Acetaminophen/ Hydrocodone Bitart 1 tab Q6HPRN PRN PO 02/08/25 13:00 02/11/25 09:16 1 TAB Apixaban 5 mg BID PO 02/09/25 22:00 02/11/25 09:15 5 MG Piperacillin Sod/ Tazobactam Sod 100 ml @ 25 mls/hr Q8HR IV 02/09/25 22:00 02/11/25 05:46 25 MLS/HR Furosemide 40 mg BIDD IV 02/11/25 18:00 UNV objective GENERAL: Alert and oriented x 2. No acute distress. EYES: PERRL, EOMI. Anicteric. HENT: Moist mucous membranes. LUNGS: Clear to auscultation bilaterally. CARDIOVASCULAR: Regular rate and rhythm. ABDOMEN: Soft, nontender and nondistended. EXTREMITIES: No edema. NEUROLOGIC: No focal neurological deficits. SKIN: Warm, dry. laboratory and microbiology Laboratory Tests 02/11/25 09:50 Test 02/11/25 09:50 Range/Units Serum Glucose 136 H 74-106 mg/dL Problem List Chest pain. Pneumonia. Hyponatremia. AFib on Eliquis. Hypertension. Type 2 diabetes mellitus. Hypothyroidism. Hyperlipidemia. Assessment/Plan Continued all current supportive medical care. [place] for pain management. Eliquis. Diuretics with Lasix. Metoprolol. Nitro SL. IV antibiotics as ordered. Additional plan as per the hospital course. Plan discussed with: Other ABBEY VARELA MD Feb 11, 2025 13:02
--- NOTE | 2025-02-11 23:25 | DVHPN2 ---
Progress Note - Dictate Date Seen: Feb 11, 2025 Medical Necessity Reason Pt with a Central, PICC or Fol: No Subjective [facility] Patient seen and examined at bedside. Remains on supplemental oxygen Overnight events reviewed. vital signs Vital Sign Date Time Temp Pulse Resp B/P (MAP) Pulse Ox O2 Delivery O2 Flow Rate FiO2 02/11/25 21:21 104 112/65 02/11/25 17:00 97.8 18 99 97.8 02/11/25 07:50 Nasal Cannula* 3 32 Total Intake and Output 02/10/25 02/10/25 02/11/25 15:00 23:00 07:00 Intake Total 825 ml 750 ml Output Total 500 ml Balance 325 ml 750 ml medications Current Medications Medications Dose Ordered Sig/Amna Route Start Time Stop Time Status Last Admin Dose Admin Ondansetron HCl 4 mg Q4HP PRN IV 02/07/25 22:45 02/10/25 11:10 4 MG Nitroglycerin 0.4 mg Q5MINP PRN SL 02/07/25 22:45 Metoprolol Tartrate 25 mg BID PO 02/08/25 10:00 02/11/25 21:21 25 MG Acetaminophen/ Hydrocodone Bitart 1 tab Q6HPRN PRN PO 02/08/25 13:00 02/11/25 09:16 1 TAB Apixaban 5 mg BID PO 02/09/25 22:00 02/11/25 21:33 5 MG Piperacillin Sod/ Tazobactam Sod 100 ml @ 25 mls/hr Q8HR IV 02/09/25 22:00 02/11/25 21:19 25 MLS/HR Furosemide 40 mg BIDD IV 02/11/25 18:00 02/11/25 18:50 40 MG objective Gen.: Patient lying in bed in no apparent distress. On supplemental oxygen. Head: Normocephalic, atraumatic. Eyes: EOMI/PERRLA. Ears: Normal hearing. Normal anatomy. Neck/trachea: Trachea midline, supple. Nose: Normal external anatomy. Mouth: Moist mucous membranes. Chest: Decreased air entry bilaterally. No wheezing or rhonchi. Cardiovascular: Positive S1, positive S2. Regular rate and rhythm. Abdomen: Positive bowel sounds in all 4 quadrants. Soft, non-tender, non- distended. : Deferred. Rectal: Deferred. Skin: Warm, dry. Intact. Extremities: 2+ radial pulses bilaterally. No lower extremity edema. Neuro: Awake, alert, oriented x3. No gross motor or sensory deficits. Cranial nerves II through XII intact. Gait not assessed. laboratory and microbiology Laboratory Tests 02/11/25 09:50 Test 02/11/25 09:50 Range/Units Serum Glucose 136 H 74-106 mg/dL Assessment/Plan Impression: Acute hypoxic respiratory failure Dependence on supplemental oxygen Pleural effusion Atelectasis Pneumonia, likely GNR Mediastinal lymphadenopathy, likely reactive Atrial flutter Events: Remains on supplemental oxygen Improved O2 requirements - on 3 LPM NC Taper O2 as tolerated Labs reviewed; WBC 17.6, HGB 8.9, HCT 25.2, NA 123, K 3.3, CL 85, BUN 37, GLUC 265. Continue diuresis with Lasix. (Metolazone was stopped due to delirium) Consult IR for thoracentesis for pleural effusion. On Eliquis BID Cardiology recs appreciated. Continue antibiotics Incentive spirometry Labs and imaging reviewed. Rest of plan as noted below. Plan: Supplemental oxygen Titrate to keep O2 sats above 92%. On Eliquis Blood pressure control Continue antibiotics Incentive spirometry S/p right thoracentesis on 02/09/25 with drainage of 750 mL from right pleural space. See separate procedure note for details Monitor renal function. Monitor electrolytes. Supplement as necessary. Monitor ins and outs. DVT prophylaxis. Prognosis: Poor given patient's multiple co-morbidities. Rest of plan per hospitalist and other consultants. Thank you Dr. Tarango for allowing me to participate in this patient's care. Further recommendations will depend on the patient's clinical course. Please do not hesitate to contact me if you have any questions or concerns. This medical document was created using an electronic medical record system with [employer] dictation system. Although these documentations are being carefully reviewed, there may still be some phonetic and typographical changes. The errors are purely typographical, due to imperfection on the software program, and do not reflect any compromise in the patient's medical care. Dietary Evaluation Review Comments: Continue current plan of care Expected Outcomes/Goals: To meet >75% estimated needs Lab values to improve Fu 3-5 days Plan discussed with: Patient, Other (IVELISSE Gross) ZAFAR AHUMADA MD Feb 11, 2025 23:25
[2025-02-12] VITALS (8 sets, daily range): BP systolic 110–134; BP diastolic 52–78; PULSE 63–111; RESP 17–19; TEMP 97–98.4; O2SAT 95–99
[2025-02-12 07:48] LABS: Hematocrit 23.7 % (36.0-46.0); Hemoglobin 8.5 g/dL (12.2-16.2); Mean Corpuscular Hemoglobin 30.7 pg (28.0-32.0); Mean Corpuscular Volume 85.6 fL (80.0-100.0); Nucleated Red Blood Cells % 0.0 %
[2025-02-12 07:59] LABS: Anion Gap 6 (5-15)
[2025-02-12 08:05] LABS: BUN/Creatinine Ratio 35.7 (10.0-20.0)
[2025-02-12 08:07] LABS: Immunoglobulin A 213 mg/dL (64-422); Immunoglobulin G, Serum 717 mg/dL (586-1602); Immunoglobulin M 76 mg/dL (26-217)
[2025-02-12 08:21] LABS: Blood Urea Nitrogen 25 mg/dL (9-23); Calcium 7.9 mg/dL (8.7-10.4); Carbon Dioxide 35 mmol/L (20-31); Chloride 79 mmol/L (98-107); Glucose 139 mg/dL (74-106); Magnesium 1.5 mg/dL (1.6-2.6); Potassium 2.5 mmol/L (3.5-5.1); Sodium 120 mmol/L (136-145)
--- NOTE | 2025-02-12 08:46 | DVH ---
INDICATION: chf TECHNIQUE: One view of the chest is provided COMPARISON: XY CHEST XRAY 1 VIEW on DOS: 02/09/25, CT CT ANGIO CHEST CONTRAST on DOS: 02/08/25, XY CHEST PORTABLE on DOS: 02/07/25, XY CHEST XRAY 1 VIEW on DOS: 02/09/25 FINDINGS: The lung apices are excluded from view. There are small bilateral pleural effusions. The cardiomedi astinal silhouette is enlarged. There is right middle and right lower lobe airspace disease, possibly compressive atelectasis. IMPRESSION: Small bilateral pleural effusions.
--- NOTE | 2025-02-12 08:56 | DVH ---
US CHEST ULTRASOUND, HISTORY: FLUID CHECK FOR POSSIBLE THORACENTESIS COMPARISON(S): None TECHNICAL DATA: Transverse and longitudinal images are obtained of the chest. FINDING: IMPRESSION(S): There is a small septated right pleural effusion.
[2025-02-12] MEDS ORDERED: VANCOMYCIN PER PHARMACY 0 MG IV SCH (12:00)
--- NOTE | 2025-02-12 12:04 | DVHPN2 ---
Progress Note Date Seen: Feb 12, 2025 Medical Necessity Reason Pt with a Central, PICC or Fol: No Subjective Patient reports: No new complaints Review of Systems: HEENT:Normal, CVS:Normal, RESPIRATORY:Normal, GI:Normal, :Normal, MSK:Normal, NEURO:Normal Objective vital signs Vital Sign Date Time Temp Pulse Resp B/P (MAP) Pulse Ox O2 Delivery O2 Flow Rate FiO2 02/12/25 09:51 111 120/67 02/12/25 09:00 98.4 98 98.4 02/12/25 08:00 18 Nasal Cannula* 2 28 Total Intake and Output 02/11/25 02/11/25 02/12/25 15:00 23:00 07:00 Intake Total 300 ml 800 ml 500 ml Balance 300 ml 800 ml 500 ml medications Current Medications Medications Dose Ordered Sig/Amna Route Start Time Stop Time Status Last Admin Dose Admin Ondansetron HCl 4 mg Q4HP PRN IV 02/07/25 22:45 02/10/25 11:10 4 MG Nitroglycerin 0.4 mg Q5MINP PRN SL 02/07/25 22:45 Metoprolol Tartrate 25 mg BID PO 02/08/25 10:00 02/12/25 09:51 25 MG Acetaminophen/ Hydrocodone Bitart 1 tab Q6HPRN PRN PO 02/08/25 13:00 02/12/25 05:20 1 TAB Apixaban 5 mg BID PO 02/09/25 22:00 02/12/25 09:49 5 MG Piperacillin Sod/ Tazobactam Sod 100 ml @ 25 mls/hr Q8HR IV 02/09/25 22:00 02/12/25 05:19 25 MLS/HR Furosemide 40 mg BIDD IV 02/11/25 18:00 02/12/25 05:19 40 MG Examination: GENERAL:Normal, HEENT:Normal, NECK:Normal, LUNGS:Normal, LUNGS:Abnormal (oxygen), CVS:Normal, ABDOMEN:Normal, MSK:Normal, SKIN:Normal, NEURO:Normal, :Normal laboratory and microbiology Laboratory Tests 02/12/25 07:09 Test 02/12/25 07:09 Range/Units Serum Glucose 139 H 74-106 mg/dL Microbiology Date/Time Source Procedure Growth Status 02/09/25 19:37 Pleural Fluid Gram Stain - Final Resulted 02/09/25 19:37 Pleural Fluid Body Fluid Culture - Preliminary Resulted 02/07/25 21:17 Blood Blood Culture - Preliminary NO GROWTH AFTER 72 HOURS OF INCUBATION. Resulted Problem List/Assessment/Plan Problem List/Assessment/Plan #1 acute resp failure: cont oxygen #2 acute diastolic heart failure: dc lasix iv #3 a fib with rvr: amiodarone drip, dc eliquis #4 hyponatremia: ns #5 right effusion s/p thoracentesis #6 right pneumonia/sepsis with loculated effusion: ct chest, add vanc, iv antibiotics-gram positive/neg/ mrsa #7 htn #8 transaminitis advance care planning- full code- time spent 19 mins long dw son- reviewed labs and plan of care Plan discussed with: Patient, Son My Orders My Orders Orders - KEVON APPLE MD Procedure Category Date Status Time Regular Diet DIET 02/12/25 Verified Lunch * [employer] CONS 02/12/25 Verified Consult NS PHA 02/12/25 Verified 12:00 Potassium Effervesent PHA 02/12/25 Verified Tab (Klor-Con/Ef) 12:00 Potassium Chl Rik PHA 02/12/25 Verified KCL 12:00 Vancomycin Per PHA 02/12/25 Verified Pharmacy 12:[address] 02/12/25 Verified 11:46 Nutritional PHA 02/12/25 Verified Supplements (Ensure 18:00 Basic Metabolic Panel LAB 02/13/25 Verified 06:00 Dietary Evaluation Review Comments: Continue current plan of care Expected Outcomes/Goals: To meet >75% estimated needs Lab values to improve Fu 3-5 days Date of Service: Feb 12, 2025 Billing Provider: KEVON APPLE MD Common Visit Codes: [id number] INP/OBS CARE(HIGH) Secondary Visit Codes: [id number] CARE PLAN 30 MINUTES KEVON APPLE MD Feb 12, 2025 12:04
[2025-02-12] MEDS: SODIUM CHLORIDE 0.9% 1,000 ML IV SCH (12:18)
[2025-02-12] MEDS: POTASSIUM EFFERVESENT TAB 25 MEQ PO ONE (12:55)
[2025-02-12] MEDS: VANCOMYCIN 1GM/200ML PM 200 ML IV ONE (12:55)
--- NOTE | 2025-02-12 13:07 | DVH ---
Procedure: CT CHEST WITHOUT CONTRAST Reason for study/Clinical History: right pneumonia/effusion Comparison Study: US CHEST ULTRASOUND on DOS: 02/12/25, XY CHEST PORTABLE on DOS: 02/12/25, XY CHEST XRAY 1 VIEW on DOS: 02/09/25, CT CT ANGIO CHEST CONTRAST on DOS: 02/08/25, XY CHEST PORTABLE on DOS: 02/07/25 TECHNIQUE: Multidetector CT of the chest was performed from the lung apices to the upper abdomen with out the use of intravenous contract. Axial, coronal and sagittal multiplanar reformats were performed . Radiation Dose Information: CT Dose: CTDI volume is 7.17 mGy. Dose-length product is 2.54 mGy*cm The dose indicators for CT are the volume Computed Tomography (CT) Dose Index (CTDIvol) and the Dose Length Product (DLP), and are measured in units of mGy and mGy-cm, respectively. These indicators are not patient dose, but values generated from the CT scanner acquisition factors. The report includes radiation exposure data for exposures received during this examination. FINDINGS: Lower neck: Unremarkable. Lungs: Right lower lobe compressive atelectasis. Unchanged peripheral nodularity in the left lung base. This could be infectious or inflammatory or p ossible early changes of atelectasis/scarring. Few patchy peripheral nodularity is present in the right upper lobe which may be infectious or inflam matory. Heart/Vascular Structures: Cardiomegaly. Coronary artery calcifications. Vascular calcifications of t he aorta. Lymph Nodes: No adenopathy Pleura: Moderate right pleural effusion. Musculoskeletal: No acute osseous abnormality. Soft tissues: Normal. Upper abdomen: Limited portions of the upper abdomen are unremarkable. IMPRESSION: Stable moderate right pleural effusion. Overall, findings are not significantly changed since CT dated 02/08/2025.
--- NOTE | 2025-02-12 15:32 | DVHPN2 ---
Progress Note Date Seen: Feb 12, 2025 Medical Necessity Reason Pt with a Central, PICC or Fol: No Subjective Patient reports: No new complaints, Other (weak) Review of Systems: Deferred Objective vital signs Vital Sign Date Time Temp Pulse Resp B/P (MAP) Pulse Ox O2 Delivery O2 Flow Rate FiO2 02/12/25 10:51 102 110/69 02/12/25 09:00 98.4 98 98.4 02/12/25 08:00 18 Nasal Cannula* 2 28 Total Intake and Output 02/11/25 02/11/25 02/12/25 15:00 23:00 07:00 Intake Total 300 ml 800 ml 500 ml Balance 300 ml 800 ml 500 ml medications Current Medications Medications Dose Ordered Sig/Amna Route Start Time Stop Time Status Last Admin Dose Admin Ondansetron HCl 4 mg Q4HP PRN IV 02/07/25 22:45 02/10/25 11:10 4 MG Nitroglycerin 0.4 mg Q5MINP PRN SL 02/07/25 22:45 Metoprolol Tartrate 25 mg BID PO 02/08/25 10:00 02/12/25 09:51 25 MG Acetaminophen/ Hydrocodone Bitart 1 tab Q6HPRN PRN PO 02/08/25 13:00 02/12/25 05:20 1 TAB Piperacillin Sod/ Tazobactam Sod 100 ml @ 25 mls/hr Q8HR IV 02/09/25 22:00 02/12/25 14:18 25 MLS/HR Sodium Chloride 1,000 ml @ 75 mls/hr [id number] IV 02/12/25 12:00 02/12/25 12:18 75 MLS/HR Vancomycin HCl 0 ml @ 0 mls/hr UD IV 02/12/25 12:00 Enteral Nutritional Formula 240 ml BIDWM PO 02/12/25 18:00 Examination: GENERAL:Normal, HEENT:Normal, NECK:Normal, LUNGS:Abnormal, CVS:Normal, ABDOMEN:Normal, MSK:Abnormal, SKIN:Normal, NEURO:Normal, :Normal laboratory and microbiology Laboratory Tests 02/12/25 07:09 Test 02/12/25 07:09 Range/Units Serum Glucose 139 H 74-106 mg/dL Microbiology Date/Time Source Procedure Growth Status 02/09/25 19:37 Pleural Fluid Gram Stain - Final Resulted 02/09/25 19:37 Pleural Fluid Body Fluid Culture - Preliminary Resulted 02/07/25 21:17 Blood Blood Culture - Preliminary NO GROWTH AFTER 72 HOURS OF INCUBATION. Resulted Problem List/Assessment/Plan Problem List/Assessment/Plan Hyponatremia Diastolic heart failure with RV failure Atrial fibrillation on Eliquis Preserved renal function CKD II Hyperkalemia -> now low K Metabolic alkalosis hypomagnesemia Recommendations Check uric acid, urine sodium Agree with trial of IV fluids/diuretics have been held---metabolic alkalosis noted NS IV trial Repeat sodium as ordered K replace Mag replace Plan discussed with: Patient My Orders My Orders Orders - MARCELLA CORREA MD Procedure Category Date Status Time Sodium LAB 02/12/25 Logged 18:00 Urine Sodium LAB 02/12/25 Logged 15:18 Magnesium Oxide PHA 02/12/25 Transmitted Tablet (Mag-Ox Tablet) 15:30 Magnesium Oxide PHA 02/13/25 Transmitted Tablet (Mag-Ox Tablet) 10:00 Dietary Evaluation Review Comments: Continue current plan of care Expected Outcomes/Goals: To meet >75% estimated needs Lab values to improve Fu 3-5 days MARCELLA CORREA MD Feb 12, 2025 15:32
[2025-02-12] MEDS: MAGNESIUM OXIDE 400 MG TAB PO ONE (15:46)
[2025-02-12] MEDS: POTASSIUM CHL 20 Meq TABLET PO ONE (15:46)
[2025-02-12] MEDS: POTASSIUM CHLORIDE 60 MEQ, LIDOCAINE 1% (LOCAL ANESTH.) 6 ML in SODIUM CHL 0.9% 500 ML IV ONE (17:37)
[2025-02-12] MEDS: Ensure HIGH Protein Chocolate 8oz Bottle PO SCH (17:38)
[2025-02-12] MEDS: SODIUM CHL 3% 500 ML IV ONE (21:30)
--- NOTE | 2025-02-12 23:46 | DVHPN2 ---
Progress Note - Dictate Date Seen: Feb 12, 2025 Medical Necessity Reason Pt with a Central, PICC or Fol: No Subjective Patient was seen and evaluated in follow up. Sitter is at bedside. WBC 17, HGB 8.5, HCT 23.7, NA 120, K 2.5, CL 79, CO2 35, BUN 25, CA 7.9. Chest x-ray shows small bilateral pleural effusions. Chest US shows small septated right pleural effusion. Per IR, patient is not a candidate for thoracentesis. Telemetry reviewed. vital signs Vital Sign Date Time Temp Pulse Resp B/P (MAP) Pulse Ox O2 Delivery O2 Flow Rate FiO2 02/12/25 09:51 111 120/67 02/12/25 09:00 98.4 98 98.4 02/12/25 08:00 18 Nasal Cannula* 2 28 Total Intake and Output 02/11/25 02/11/25 02/12/25 15:00 23:00 07:00 Intake Total 300 ml 800 ml 500 ml Balance 300 ml 800 ml 500 ml medications Current Medications Medications Dose Ordered Sig/Amna Route Start Time Stop Time Status Last Admin Dose Admin Ondansetron HCl 4 mg Q4HP PRN IV 02/07/25 22:45 02/10/25 11:10 4 MG Nitroglycerin 0.4 mg Q5MINP PRN SL 02/07/25 22:45 Metoprolol Tartrate 25 mg BID PO 02/08/25 10:00 02/12/25 09:51 25 MG Acetaminophen/ Hydrocodone Bitart 1 tab Q6HPRN PRN PO 02/08/25 13:00 02/12/25 05:20 1 TAB Piperacillin Sod/ Tazobactam Sod 100 ml @ 25 mls/hr Q8HR IV 02/09/25 22:00 02/12/25 05:19 25 MLS/HR Sodium Chloride 1,000 ml @ 75 mls/hr [id number] IV 02/12/25 12:00 02/12/25 12:18 75 MLS/HR Vancomycin HCl 0 ml @ 0 mls/hr UD IV 02/12/25 12:00 Enteral Nutritional Formula 240 ml BIDWM PO 02/12/25 18:00 objective GENERAL: Alert and oriented x 2. No acute distress. EYES: PERRL, EOMI. Anicteric. HENT: Moist mucous membranes. LUNGS: Clear to auscultation bilaterally. CARDIOVASCULAR: Regular rate and rhythm. ABDOMEN: Soft, nontender and nondistended. EXTREMITIES: No edema. NEUROLOGIC: No focal neurological deficits. SKIN: Warm, dry. laboratory and microbiology Laboratory Tests 02/12/25 07:09 Test 02/12/25 07:09 Range/Units Serum Glucose 139 H 74-106 mg/dL Problem List Chest pain. Pneumonia. Hyponatremia. AFib on Eliquis. Hypertension. Type 2 diabetes mellitus. Hypothyroidism. Hyperlipidemia. Assessment/Plan Continued all current supportive medical care. [place] for pain management. Eliquis. Metoprolol. Nitro SL. IV antibiotics as ordered. Additional plan as per the hospital course. Dietary Evaluation Review Comments: Continue current plan of care Expected Outcomes/Goals: To meet >75% estimated needs Lab values to improve Fu 3-5 days Plan discussed with: Patient ABBEY VARELA MD Feb 12, 2025 12:40
[2025-02-13] VITALS (8 sets, daily range): BP systolic 96–130; BP diastolic 54–79; PULSE 78–125; RESP 18–21; TEMP 97.5–98.3; O2SAT 95–98
[2025-02-13 07:29] LABS: Nucleated Red Blood Cells % 0.4 %
[2025-02-13 07:31] LABS: Hematocrit 19.5 % (36.0-46.0); Mean Corpuscular Hemoglobin 30.6 pg (28.0-32.0); Mean Corpuscular Volume 87.1 fL (80.0-100.0)
[2025-02-13 07:36] LABS: Anion Gap 5 (5-15); Hemoglobin 6.9 g/dL (12.2-16.2)
[2025-02-13 07:43] LABS: BUN/Creatinine Ratio 39.3 (10.0-20.0); Blood Urea Nitrogen 24 mg/dL (9-23); Calcium 8.0 mg/dL (8.7-10.4); Carbon Dioxide 35 mmol/L (20-31); Chloride 81 mmol/L (98-107); Glucose 132 mg/dL (74-106); Potassium 3.4 mmol/L (3.5-5.1); Sodium 121 mmol/L (136-145)
[2025-02-13] MEDS: MAGNESIUM OXIDE 400 MG TAB PO SCH (09:35)
[2025-02-13] MEDS: VANCOMYCIN 750MG KIT 100 ML IV SCH (12:37)
[2025-02-13] MEDS ORDERED: SOD CHL 0.9%/ KCL 20MEQ 1,000 ML IV SCH (15:30)
--- NOTE | 2025-02-13 15:48 | DVHPN2 ---
Progress Note Date Seen: Feb 13, 2025 Medical Necessity Reason Pt with a Central, PICC or Fol: Yes The following are medically ne: Allan Catheter Reason for allan catheter: Strict I&O Subjective Patient reports: No new complaints Review of Systems: HEENT:Normal, CVS:Normal, RESPIRATORY:Normal, GI:Normal, :Normal, MSK:Normal, NEURO:Normal Objective vital signs Vital Sign Date Time Temp Pulse Resp B/P (MAP) Pulse Ox O2 Delivery O2 Flow Rate FiO2 02/13/25 13:00 98.0 98 20 123/54 (77) 98 98.0 02/13/25 08:00 Nasal Cannula* 2 28 Total Intake and Output 02/12/25 02/12/25 02/13/25 15:00 23:00 07:00 Intake Total 920 ml 480 ml Output Total 850 ml 400 ml Balance 70 ml 80 ml medications Current Medications Medications Dose Ordered Sig/Amna Route Start Time Stop Time Status Last Admin Dose Admin Ondansetron HCl 4 mg Q4HP PRN IV 02/07/25 22:45 02/10/25 11:10 4 MG Nitroglycerin 0.4 mg Q5MINP PRN SL 02/07/25 22:45 Metoprolol Tartrate 25 mg BID PO 02/08/25 10:00 02/13/25 11:29 25 MG Acetaminophen/ Hydrocodone Bitart 1 tab Q6HPRN PRN PO 02/08/25 13:00 02/13/25 11:13 1 TAB Piperacillin Sod/ Tazobactam Sod 100 ml @ 25 mls/hr Q8HR IV 02/09/25 22:00 02/13/25 14:24 25 MLS/HR Vancomycin HCl 0 ml @ 0 mls/hr UD IV 02/12/25 12:00 Enteral Nutritional Formula 240 ml BIDWM PO 02/12/25 18:00 02/13/25 08:47 240 ML Magnesium Oxide 800 mg DAILY PO 02/13/25 10:00 02/13/25 09:35 800 MG Vancomycin HCl 100 ml @ 100 mls/hr DAILY@1300 IV 02/13/25 13:00 02/13/25 12:37 100 MLS/HR Examination: GENERAL:Normal, HEENT:Normal, NECK:Normal, LUNGS:Normal, LUNGS:Abnormal (decreased right side), CVS:Normal, ABDOMEN:Normal, MSK:Normal, SKIN:Normal, NEURO:Normal, :Normal laboratory and microbiology Laboratory Tests 02/13/25 06:48 Test 02/13/25 06:48 Range/Units Serum Glucose 132 H 74-106 mg/dL Microbiology Date/Time Source Procedure Growth Status 02/09/25 19:37 Pleural Fluid Gram Stain - Final Resulted 02/09/25 19:37 Pleural Fluid Body Fluid Culture - Preliminary Resulted 02/07/25 21:17 Blood Blood Culture - Final NO GROWTH AFTER 5 DAYS OF INCUBATION. Complete Problem List/Assessment/Plan Problem List/Assessment/Plan #1 acute resp failure: cont oxygen #2 acute diastolic heart failure: dc lasix iv #3 a fib with rvr: amiodarone drip, dc eliquis #4 hyponatremia: ns #5 right effusion s/p thoracentesis #6 right pneumonia/sepsis with loculated effusion/empyema: chest tube placement, add vanc, iv antibiotics-gram positive/neg/ mrsa #7 htn #8 transaminitis #9 anemia: transfuse advance care planning- full code- time spent 19 mins long dw son- reviewed labs and plan of care Plan discussed with: Patient, Son My Orders My Orders Orders - KEVON APPLE MD Procedure Category Date Status Time * Radiologist Consult CONS 02/13/25 Transmitted 15:24 Packedcell-Noactive BBK 02/13/25 Logged Bleeding 15:24 Type And Screen BBK 02/13/25 Logged 15:24 Administer Blood PEDRITO 02/13/25 In Process Products 15:24 Dietary Evaluation Review Comments: Continue current plan of care Expected Outcomes/Goals: To meet >75% estimated needs Lab values to improve Fu 3-5 days Date of Service: Feb 13, 2025 Billing Provider: KEVON APPLE MD Common Visit Codes: [id number] INP/OBS CARE(HIGH) KEVON APPLE MD Feb 13, 2025 15:48
[2025-02-13] MEDS: POTASSIUM EFFERVESENT TAB 25 MEQ PO ONE (16:05)
--- NOTE | 2025-02-13 17:20 | DVHPN2 ---
Progress Note Date Seen: Feb 13, 2025 Medical Necessity Reason Pt with a Central, PICC or Fol: Yes The following are medically ne: Allan Catheter Reason for allan catheter: Strict I&O Subjective Patient reports: Feels worse Objective vital signs Vital Sign Date Time Temp Pulse Resp B/P (MAP) Pulse Ox O2 Delivery O2 Flow Rate FiO2 02/13/25 17:03 98.3 87 20 121/74 (90) 98 98.3 02/13/25 08:00 Nasal Cannula* 2 28 Total Intake and Output 02/12/25 02/12/25 02/13/25 15:00 23:00 07:00 Intake Total 920 ml 480 ml Output Total 850 ml 400 ml Balance 70 ml 80 ml medications Current Medications Medications Dose Ordered Sig/Amna Route Start Time Stop Time Status Last Admin Dose Admin Ondansetron HCl 4 mg Q4HP PRN IV 02/07/25 22:45 02/10/25 11:10 4 MG Nitroglycerin 0.4 mg Q5MINP PRN SL 02/07/25 22:45 Metoprolol Tartrate 25 mg BID PO 02/08/25 10:00 02/13/25 11:29 25 MG Acetaminophen/ Hydrocodone Bitart 1 tab Q6HPRN PRN PO 02/08/25 13:00 02/13/25 11:13 1 TAB Piperacillin Sod/ Tazobactam Sod 100 ml @ 25 mls/hr Q8HR IV 02/09/25 22:00 02/13/25 14:24 25 MLS/HR Vancomycin HCl 0 ml @ 0 mls/hr UD IV 02/12/25 12:00 Enteral Nutritional Formula 240 ml BIDWM PO 02/12/25 18:00 02/13/25 08:47 240 ML Magnesium Oxide 800 mg DAILY PO 02/13/25 10:00 02/13/25 09:35 800 MG Vancomycin HCl 100 ml @ 100 mls/hr DAILY@1300 IV 02/13/25 13:00 02/13/25 12:37 100 MLS/HR Examination: GENERAL:Abnormal, LUNGS:Abnormal, CVS:Abnormal, SKIN:Normal laboratory and microbiology Laboratory Tests 02/13/25 06:48 Test 02/13/25 06:48 Range/Units Serum Glucose 132 H 74-106 mg/dL Microbiology Date/Time Source Procedure Growth Status 02/09/25 19:37 Pleural Fluid Gram Stain - Final Resulted 02/09/25 19:37 Pleural Fluid Body Fluid Culture - Preliminary Resulted 02/07/25 21:17 Blood Blood Culture - Final NO GROWTH AFTER 5 DAYS OF INCUBATION. Complete Problem List/Assessment/Plan Problem List/Assessment/Plan 84-year-old female past medical history of congestive heart failure presents to the hospital with shortness of breath and dyspnea. She was found to have large pleural effusion. Nephrology consulted for hyponatremia. Hyponatremia in hypervolemia Diastolic heart failure with RV failure Atrial fibrillation on Eliquis pleural effusion s/p thoracentesis, hemothorax anemia Preserved renal function CKD II Hyperkalemia -> now low K hyponatremia PRBC to increase hb > 8.0 monitor serum sodium, no needs for further 3% NACL at this time potassium replacement Pulmonology Cardiology Low-salt diet Rest of care as per primary medical team guarded prognosis Plan discussed with: Patient My Orders My Orders Orders - ROSEMARIE MCKEON MD Procedure Category Date Status Time Communication Order ORDERS 02/13/25 Transmitted 07:34 Dietary Evaluation Review Comments: Continue current plan of care Expected Outcomes/Goals: To meet >75% estimated needs Lab values to improve Fu 3-5 days Total Time (mins): 35 ROSEMARIE MCKEON MD Feb 13, 2025 17:20
--- NOTE | 2025-02-13 19:32 | DVHNC2 ---
Procedure - Ultrasound-guided RIGHT thoracentesis procedure note: Physician: Dr Les Mejia Time out time: 1844 pm Patient medications and allergies reviewed. The risks and benefits of the procedure and the sedation options and risk were discussed with the patient's healthcare proxy. All questions were answered and informed consent was obta ined. Patient identification and proposed procedure were verified prior to the procedure by the physician, and a nurse in the patient's room. The heart rate, respiratory rate, oxygen saturations, blood pressure, adequacy of pulmonary ventilation, and response to care were monitored throughout the procedure. The physical status of the patient was reassessed after the procedure. Date: Consent: Consent was obtained from patient's healthcare proxy prior to procedure. Indication, risks, and benefits were explained at length. Procedure summary: A time out was performed and a chest x-ray was reviewed prior to procedure. The appropriate site was confirmed and marked. My hands were washed immediately prior to the procedure, I wore a surgical cap, mask with protective eyewear, sterile gown and sterile gloves throughout the procedure. The patient was prepped and draped in a sterile manner using chlorhexidine scrub after the appropriate level was percussed and confirmed by ultrasound. 1% lidocaine was used to anesthetize the skin, subcutaneous tissue, superior aspect of the rib periosteum and parietal pleura. A finder needle was then introduced over the superior aspect of the rib to locate the pleural fluid; christina purulent fluid was aspirated. Thoracentesis needle was then introduced through the skin incision into the pleural space using negative aspiration pressure. The thoracentesis catheter was then threaded without difficulty. 100 mL's of CHRISTINA purulent fluid were removed without difficulty. The catheter was then removed. No immediate complications were noted during the procedure. A postprocedure chest x-ray is pending at the time of this note. The pleural fluid will be sent for cultures. Estimated blood loss is less than 5 mL's. CPT: 86258 ZAFAR AHUMADA MD Feb 13, 2025 19:32
--- NOTE | 2025-02-13 20:11 | DVH ---
CHEST RADIOGRAPH Indication: s/p right thoracentesis Technique: 1 view Comparison: CT CHEST WITHOUT CONTRAST on DOS: 02/12/25, US CHEST ULTRASOUND on DOS: 02/12/25, XY CHEST PO RTABLE on DOS: 02/12/25, XY CHEST XRAY 1 VIEW on DOS: 02/09/25, CT CT ANGIO CHEST CONTRAST on DOS: 02/08/25 FINDINGS: Lines and Tubes: External leads. Lungs: Increased airspace disease within the basilar right upper lobe likely representing compressive atelectasis. Additional compressive atelectasis within the right lung base. Patchy airspace disease in the left mid to lower lung. Pleura: Increased or redistributed small-moderate right pleural effusion more conspicuous in the rajiv r fissure. No pneumothorax. Cardiomediastinal contours: Unchanged, within normal limits. Other: Unchanged. IMPRESSION: 1. More conspicuous right pleural effusion may be redistributed or increased from the previous day. 2. Increased airspace disease within the basilar right upper lobe likely representing compressive ate lectasis. 3. No other significant interval change.
--- NOTE | 2025-02-13 22:34 | DVHPN2 ---
Progress Note - Dictate Date Seen: Feb 13, 2025 Medical Necessity Reason Pt with a Central, PICC or Fol: Yes The following are medically ne: Allan Catheter Reason for allan catheter: Strict I&O Subjective Patient was seen and evaluated in follow up. Sitter is at bedside. [place] is on 2 LPM NC. Patient reports feeling worse today. Patient underwent right US guided thoracentesis with 100 mL's of christina purulent fluid were removed without difficulty. WBC 19.5, HGB 6.9, HCT 19.5, Na 121, K 3.4, CO2 35, BUN 24. Patient receiving PRBC transfusion. Telemetry reviewed. vital signs Vital Sign Date Time Temp Pulse Resp B/P (MAP) Pulse Ox O2 Delivery O2 Flow Rate FiO2 02/13/25 21:56 78 130/60 02/13/25 21:00 97.9 18 96 97.9 02/13/25 08:00 Nasal Cannula* 2 28 Total Intake and Output 02/12/25 02/12/25 02/13/25 15:00 23:00 07:00 Intake Total 920 ml 480 ml Output Total 850 ml 400 ml Balance 70 ml 80 ml medications Current Medications Medications Dose Ordered Sig/Amna Route Start Time Stop Time Status Last Admin Dose Admin Ondansetron HCl 4 mg Q4HP PRN IV 02/07/25 22:45 02/10/25 11:10 4 MG Nitroglycerin 0.4 mg Q5MINP PRN SL 02/07/25 22:45 Metoprolol Tartrate 25 mg BID PO 02/08/25 10:00 02/13/25 21:56 25 MG Acetaminophen/ Hydrocodone Bitart 1 tab Q6HPRN PRN PO 02/08/25 13:00 02/13/25 21:55 1 TAB Piperacillin Sod/ Tazobactam Sod 100 ml @ 25 mls/hr Q8HR IV 02/09/25 22:00 02/13/25 21:55 25 MLS/HR Vancomycin HCl 0 ml @ 0 mls/hr UD IV 02/12/25 12:00 Enteral Nutritional Formula 240 ml BIDWM PO 02/12/25 18:00 02/13/25 18:05 240 ML Magnesium Oxide 800 mg DAILY PO 02/13/25 10:00 02/13/25 09:35 800 MG Vancomycin HCl 100 ml @ 100 mls/hr DAILY@1300 IV 02/13/25 13:00 02/13/25 12:37 100 MLS/HR objective GENERAL: Alert and oriented x 2. No acute distress. EYES: PERRL, EOMI. Anicteric. HENT: Moist mucous membranes. LUNGS: Clear to auscultation bilaterally. CARDIOVASCULAR: Regular rate and rhythm. ABDOMEN: Soft, nontender and nondistended. EXTREMITIES: No edema. NEUROLOGIC: No focal neurological deficits. SKIN: Warm, dry. laboratory and microbiology Laboratory Tests 02/13/25 06:48 Test 02/13/25 06:48 Range/Units Serum Glucose 132 H 74-106 mg/dL Problem List Chest pain. Pneumonia. Hyponatremia. AFib on Eliquis. Hypertension. Type 2 diabetes mellitus. Hypothyroidism. Hyperlipidemia. Assessment/Plan Continued all current supportive medical care. [place] for pain management. Eliquis. Metoprolol. Nitro SL. IV antibiotics as ordered. Additional plan as per the hospital course. Dietary Evaluation Review Comments: Continue current plan of care Expected Outcomes/Goals: To meet >75% estimated needs Lab values to improve Fu 3-5 days Plan discussed with: Patient ABBEY VARELA MD Feb 13, 2025 22:34
--- NOTE | 2025-02-13 22:48 | DVHPN2 ---
Progress Note - Dictate Date Seen: Feb 13, 2025 Medical Necessity Reason Pt with a Central, PICC or Fol: Yes The following are medically ne: Allan Catheter Reason for allan catheter: Strict I&O Subjective [facility] Patient seen and examined at bedside. Remains on supplemental oxygen Overnight events reviewed. vital signs Vital Sign Date Time Temp Pulse Resp B/P (MAP) Pulse Ox O2 Delivery O2 Flow Rate FiO2 02/13/25 21:56 78 130/60 02/13/25 21:00 97.9 18 96 97.9 02/13/25 08:00 Nasal Cannula* 2 28 Total Intake and Output 02/12/25 02/12/25 02/13/25 15:00 23:00 07:00 Intake Total 920 ml 480 ml Output Total 850 ml 400 ml Balance 70 ml 80 ml medications Current Medications Medications Dose Ordered Sig/Amna Route Start Time Stop Time Status Last Admin Dose Admin Ondansetron HCl 4 mg Q4HP PRN IV 02/07/25 22:45 02/10/25 11:10 4 MG Nitroglycerin 0.4 mg Q5MINP PRN SL 02/07/25 22:45 Metoprolol Tartrate 25 mg BID PO 02/08/25 10:00 02/13/25 21:56 25 MG Acetaminophen/ Hydrocodone Bitart 1 tab Q6HPRN PRN PO 02/08/25 13:00 02/13/25 21:55 1 TAB Piperacillin Sod/ Tazobactam Sod 100 ml @ 25 mls/hr Q8HR IV 02/09/25 22:00 02/13/25 21:55 25 MLS/HR Vancomycin HCl 0 ml @ 0 mls/hr UD IV 02/12/25 12:00 Enteral Nutritional Formula 240 ml BIDWM PO 02/12/25 18:00 02/13/25 18:05 240 ML Magnesium Oxide 800 mg DAILY PO 02/13/25 10:00 02/13/25 09:35 800 MG Vancomycin HCl 100 ml @ 100 mls/hr DAILY@1300 IV 02/13/25 13:00 02/13/25 12:37 100 MLS/HR objective Gen.: Patient lying in bed in no apparent distress. On supplemental oxygen. Head: Normocephalic, atraumatic. Eyes: EOMI/PERRLA. Ears: Normal hearing. Normal anatomy. Neck/trachea: Trachea midline, supple. Nose: Normal external anatomy. Mouth: Moist mucous membranes. Chest: Decreased air entry bilaterally. No wheezing or rhonchi. Cardiovascular: Positive S1, positive S2. Regular rate and rhythm. Abdomen: Positive bowel sounds in all 4 quadrants. Soft, non-tender, non- distended. : Deferred. Rectal: Deferred. Skin: Warm, dry. Intact. Extremities: 2+ radial pulses bilaterally. No lower extremity edema. Neuro: Awake, alert, oriented x3. No gross motor or sensory deficits. Cranial nerves II through XII intact. Gait not assessed. laboratory and microbiology Laboratory Tests 02/13/25 06:48 Test 02/13/25 06:48 Range/Units Serum Glucose 132 H 74-106 mg/dL Assessment/Plan Impression: Acute hypoxic respiratory failure Dependence on supplemental oxygen Pleural effusion Atelectasis Pneumonia, likely GNR Mediastinal lymphadenopathy, likely reactive Atrial flutter Events: Remains on supplemental oxygen Improved O2 requirements - on 2 LPM NC Taper O2 as tolerated Labs reviewed; WBC 19.5, HGB 6.9, HCT 19.5, Na 121, K 3.4, CO2 35, BUN 24 Hemoglobin low at 6.9 g/dL - PRBC transfusion. Keep hemoglobin greater than or equal to 7.0 g/dL S/p right thoracentesis today with 100 mL's of christina purulent fluid drained from right pleural space See separate procedure note for details. Fluid sent for cultures; cell count and diff, pH, LDH, TP, glucose; Gram stain and culture + AFB smear - follow up results Continue antibiotics Incentive spirometry Labs and imaging reviewed. Rest of plan as noted below. Plan: Supplemental oxygen Titrate to keep O2 sats above 92%. Eliquis Blood pressure control Follow up Cardiology recommendations Continue antibiotics Incentive spirometry S/p right thoracentesis on 02/09/25 with drainage of 750 mL from right pleural space. See separate procedure note for details Monitor renal function. Monitor electrolytes. Supplement as necessary. Monitor ins and outs. DVT prophylaxis. Prognosis: Poor given patient's multiple co-morbidities. Rest of plan per hospitalist and other consultants. Thank you Dr. Tarango for allowing me to participate in this patient's care. Further recommendations will depend on the patient's clinical course. Please do not hesitate to contact me if you have any questions or concerns. This medical document was created using an electronic medical record system with [employer] dictation system. Although these documentations are being carefully reviewed, there may still be some phonetic and typographical changes. The errors are purely typographical, due to imperfection on the software program, and do not reflect any compromise in the patient's medical care. Dietary Evaluation Review Comments: Continue current plan of care Expected Outcomes/Goals: To meet >75% estimated needs Lab values to improve Fu 3-5 days Plan discussed with: Patient, Other (IVELISSE Mejia) ZAFAR AHUMADA MD Feb 13, 2025 22:48
[2025-02-14] VITALS (13 sets, daily range): BP systolic 124–172; BP diastolic 58–91; PULSE 66–100; RESP 14–18; TEMP 97–98.4; O2SAT 96–99
[2025-02-14] MEDS: fentaNYL CITRATE 100 MCG/2 ML VL ONE (08:54)
[2025-02-14 09:03] LABS: Hematocrit 26.6 % (36.0-46.0); Hemoglobin 9.0 g/dL (12.2-16.2); Mean Corpuscular Hemoglobin 30.3 pg (28.0-32.0); Mean Corpuscular Volume 90.1 fL (80.0-100.0); Nucleated Red Blood Cells % 0.1 %
[2025-02-14 09:12] LABS: Anion Gap 5 (5-15)
[2025-02-14 09:17] LABS: BUN/Creatinine Ratio 18.9 (10.0-20.0); Blood Urea Nitrogen 10 mg/dL (9-23)
[2025-02-14 09:18] LABS: Calcium 8.3 mg/dL (8.7-10.4); Carbon Dioxide 33 mmol/L (20-31); Chloride 84 mmol/L (98-107); Glucose 127 mg/dL (74-106); Potassium 3.5 mmol/L (3.5-5.1); Sodium 122 mmol/L (136-145)
[2025-02-14 09:34] LABS: INR 1.07 (0.9-1.15); Partial Thromboplastin Time 31.0 SEC (24.5-34.5); Prothrombin Time 11.3 sec (9.3-11.8)
--- NOTE | 2025-02-14 10:46 | DVH ---
PROCEDURE: Drainage catheter placement Procedural Personnel Attending physician(s): Yunier Jacob Fellow physician(s): None Resident physician(s): None Advanced practice provider(s): None Pre-procedure diagnosis: Loculated right pleural effusion Post-procedure diagnosis: Same Indication: Other-loculated effusion, dyspnea Additional clinical history: None Complications: No immediate complications. IMPRESSION: Percutaneous placement of a 8.5 taiwanese drainage catheter into the right pleural space, yielding 10 mL of serosanguinous fluid. Plan: Recommend intra-catheter tPA due to multiple septations within the pleural space in order to optimize drainage. Continue drain to -20 cm H2O continuous wall suction. PROCEDURE SUMMARY: - Visceral drainage catheter placement under ultrasound guidance - Additional procedure(s): None PROCEDURE DETAILS: Pre-procedure Consent: Informed consent for the procedure including risks, benefits and alternatives was obtained a nd time-out was performed prior to the procedure. Preparation: The site was prepared and draped using maximal sterile barrier technique including cutan eous antisepsis. Anesthesia/sedation Level of anesthesia/sedation: No sedation Anesthesia/sedation administered by: Not applicable Total intra-service sedation time (minutes): 0 Drainage catheter placement The patient was positioned left lateral decubitus. Initial imaging was performed. Local anesthesia wa s administered. The fluid collection was accessed using an access needle followed by wire insertion a nd serial dilation and a drainage catheter was placed. Position of the drainage catheter within the f luid collection was confirmed. Initial imaging findings: Moderate sized right pleural effusion with internal septae Access route: Percutaneous Drainage catheter placed: Multipurpose drain. Drain size (Fr): 8.5 External catheter securement: Non-absorbable suture Drainage catheter contrast injection: No Final imaging findings: Partial drainage of the fluid collection Contrast Contrast agent: None Contrast volume (mL): 0 Radiation Dose NA Additional Details Additional description of procedure: None Registry event: V/3/f Device used: None Equipment details: None Specimens removed: 10 mL of serosanguinous fluid. Aspirated fluid was sent for analysis. Estimated blood loss (mL): Less than 10 Standardized report: [email or web address] Attestation Signer name: Yunier Jacob I attest that I was present for the entire procedure. I reviewed the stored images and agree with the report as written.
--- NOTE | 2025-02-14 11:57 | DVHPN2 ---
Progress Note Date Seen: Feb 14, 2025 Medical Necessity Reason Pt with a Central, PICC or Fol: Yes The following are medically ne: Allan Catheter Reason for allan catheter: Strict I&O Subjective Patient reports: Feels better Review of Systems: Deferred Objective vital signs Vital Sign Date Time Temp Pulse Resp B/P (MAP) Pulse Ox O2 Delivery O2 Flow Rate FiO2 02/14/25 10:35 95 164/91 02/14/25 08:52 98.1 14 98 98.1 02/14/25 08:00 Nasal Cannula* 2 28 Total Intake and Output 02/13/25 02/13/25 02/14/25 15:00 23:00 07:00 Intake Total 200 ml 440 ml 420 ml Output Total 200 ml Balance 200 ml 240 ml 420 ml medications Current Medications Medications Dose Ordered Sig/Amna Route Start Time Stop Time Status Last Admin Dose Admin Ondansetron HCl 4 mg Q4HP PRN IV 02/07/25 22:45 02/10/25 11:10 4 MG Nitroglycerin 0.4 mg Q5MINP PRN SL 02/07/25 22:45 Metoprolol Tartrate 25 mg BID PO 02/08/25 10:00 02/14/25 10:35 25 MG Acetaminophen/ Hydrocodone Bitart 1 tab Q6HPRN PRN PO 02/08/25 13:00 02/14/25 10:42 1 TAB Piperacillin Sod/ Tazobactam Sod 100 ml @ 25 mls/hr Q8HR IV 02/09/25 22:00 02/14/25 06:18 25 MLS/HR Vancomycin HCl 0 ml @ 0 mls/hr UD IV 02/12/25 12:00 Enteral Nutritional Formula 240 ml BIDWM PO 02/12/25 18:00 02/13/25 18:05 240 ML Magnesium Oxide 800 mg DAILY PO 02/13/25 10:00 02/14/25 10:34 800 MG Vancomycin HCl 100 ml @ 100 mls/hr DAILY@1300 IV 02/13/25 13:00 02/13/25 12:37 100 MLS/HR Examination: GENERAL:Normal, LUNGS:Abnormal, ABDOMEN:Normal, SKIN:Normal laboratory and microbiology Laboratory Tests 02/14/25 08:28 Test 02/14/25 08:28 Range/Units Serum Glucose 127 H 74-106 mg/dL Microbiology Date/Time Source Procedure Growth Status 02/13/25 19:10 Pleural Fluid Gram Stain Pending Resulted 02/13/25 19:10 Pleural Fluid Body Fluid Culture - Preliminary Resulted 02/07/25 21:17 Blood Blood Culture - Final NO GROWTH AFTER 5 DAYS OF INCUBATION. Complete Problem List/Assessment/Plan Problem List/Assessment/Plan 84-year-old female past medical history of congestive heart failure presents to the hospital with shortness of breath and dyspnea. She was found to have large pleural effusion. Nephrology consulted for hyponatremia. Hyponatremia in hypervolemia Diastolic heart failure with RV failure Atrial fibrillation on Eliquis pleural effusion s/p thoracentesis, hemothorax anemia Preserved renal function CKD II Hyperkalemia -> now low K hyponatremia sepsis PRBC completed s/p chest tube today potassium replacement Na stable no need for 3% at this time Pulmonology Cardiology Low-salt diet Rest of care as per primary medical team guarded prognosis Plan discussed with: Patient, Son My Orders My Orders Orders - ROSEMARIE MCKEON MD Procedure Category Date Status Time Basic Metabolic Panel LAB 02/15/25 Verified 04:00 Potassium Chl PHA 02/14/25 Logged 20meq/100ml 11:45 Dietary Evaluation Review Comments: Continue current plan of care Expected Outcomes/Goals: To meet >75% estimated needs Lab values to improve Fu 3-5 days Total Time (mins): 33 CC Plasma Assessment Blood Product Administration S: [id number] ROSEMARIE MCKEON MD Feb 14, 2025 11:57
--- NOTE | 2025-02-14 15:33 | DVHPN2 ---
Subjective Patient continues to report having generalized weakness, general ill feeling Reviewed: Care Plan, H&P, Labs, Medications, Previous Orders, Radiology, Other (Consultations) Changes from previous H/P or p: No Changes General: Per HPI Objective Vitals Vital Signs Date Time Temp Pulse Resp B/P (MAP) Pulse Ox O2 Delivery O2 Flow Rate FiO2 02/14/25 13:00 97.8 86 14 133/69 (90) 97 97.8 02/14/25 08:00 Nasal Cannula* 2 28 Intake/Output Intake and Output 02/14/25 07:00 Intake Total 1060 ml Output Total 200 ml Balance 860 ml Intake Oral 760 ml IV Total 300 ml Output Urine Total 200 ml # Bowel Movements 2 General Appearance: Alert, Oriented X3, Cooperative, moderate distress HEENT: Atraumatic, PERRLA Lungs: Other (Decreased air entry on the right side with a scattered crackles) Chest/Breasts: Other (Right chest tube with serous fluid) Cardiovascular: Other (Tachycardia with a irregularly irregular rhythm) Abdomen: Normal bowel sounds, Soft, No tenderness Neuro: Normal speech, Cranial nerves 3-12 NL Skin: Dry, Intact Psych/Mental Status: Mental status NL, Mood NL Medications Current Medications Medications Dose Ordered Sig/Amna Route Start Time Stop Time Status Last Admin Dose Admin Ondansetron HCl 4 mg Q4HP PRN IV 02/07/25 22:45 02/10/25 11:10 4 MG Nitroglycerin 0.4 mg Q5MINP PRN SL 02/07/25 22:45 Metoprolol Tartrate 25 mg BID PO 02/08/25 10:00 02/14/25 10:35 25 MG Acetaminophen/ Hydrocodone Bitart 1 tab Q6HPRN PRN PO 02/08/25 13:00 02/14/25 10:42 1 TAB Piperacillin Sod/ Tazobactam Sod 100 ml @ 25 mls/hr Q8HR IV 02/09/25 22:00 02/14/25 14:42 25 MLS/HR Vancomycin HCl 0 ml @ 0 mls/hr UD IV 02/12/25 12:00 Enteral Nutritional Formula 240 ml BIDWM PO 02/12/25 18:00 02/13/25 18:05 240 ML Magnesium Oxide 800 mg DAILY PO 02/13/25 10:00 02/14/25 10:34 800 MG Vancomycin HCl 100 ml @ 100 mls/hr DAILY@1300 IV 02/13/25 13:00 02/14/25 13:19 100 MLS/HR Amiodarone HCl 200 mg Q12HR PO 02/14/25 22:00 Amiodarone HCl 200 mg Q12HR PO 02/14/25 22:00 UNV Temazepam 15 mg HSPRN PRN PO 02/14/25 15:30 UNV Pantoprazole Sodium 40 mg BID IV 02/14/25 22:00 UNV Sucralfate 1 gm BID@0600,2200 GT 02/14/25 22:00 UNV Laboratory Results Laboratory Tests 02/14/25 08:28 Chemistry Test 02/14/25 08:28 Calcium Level 8.3 mg/dL (8.7-10.4) L Coagulation Test 02/14/25 08:28 Prothrombin Time 11.3 sec (9.3-11.8) Prothrombin Time INR 1.07 (0.9-1.15) Activated Partial Thromboplast Time 31.0 SEC (24.5-34.5) Urinalysis Test 02/10/25 16:30 02/13/25 11:05 Urine Color Colorless (Yellow) Urine Clarity Clear (Clear) Urine pH 5.5 (5.0-9.0) Urine Specific [place] 1.009 (1.001-1.035) Urine Protein Negative (Negative) Urine Ketones Negative (Negative) Urine Blood Negative /uL (Negative) Urine Nitrite Negative (Negative) Urine Bilirubin Negative (Negative) Urine Urobilinogen Normal mg/dL (Negative) Urine Leukocyte Esterase Negative /uL (Negative) Urine RBC 1 /hpf (0 - 4) Urine Microscopic WBC < 1 /HPF (0-5) Urine Squamous Epithelial Cells None seen /hpf (<5) Urine Bacteria None seen /hpf (None Seen) Urine Glucose Normal mg/dL (Normal) Urine Osmolality 528 mOsm/kg Urine Sodium < 10 mmol/L (40-220) L Microbiology Microbiology Date/Time Source Procedure Growth Status 02/13/25 19:10 Pleural Fluid Gram Stain - Final Resulted 02/13/25 19:10 Pleural Fluid Body Fluid Culture - Preliminary Resulted 02/07/25 21:17 Blood Blood Culture - Final NO GROWTH AFTER 5 DAYS OF INCUBATION. Complete Labs and/or images reviewed: Labs reviewed by me, Image(s) reviewed by me Assessment/Plan Assessment/Plan Impression: -acute hypoxic respiratory failure -acute diastolic heart failure -right ventricular heart failure -hyponatremia,? SIADH -community-acquired pneumonia with right loculated empyema -primary hypertension -atrial fibrillation -anemia -rule out GI bleed -obesity Plan: -H&H now stable after 1 unit PRBC. -stool for occult blood, reported melena stool today by primary nurse -continue to hold anticoagulation -add PPI, Carafate -stop amiodarone drip given heart rate is controlled. Continue beta-kala therapy for rate control, add amiodarone p.o. 200 mg twice a day -continue current antibiotic therapy -O2 supplementation to keep saturation greater than 92% -status post right chest tube placement by Interventional Radiology. Drainage now serous -repeat labs, chest x-ray in a.m. -trial of temazepam for insomnia Total time spent with patient discussing and formulating plan of care: 35 minutes. This medical document was created using an electronic medical record system with [employer] dictation system. Although this document has been carefully reviewed, there may still be some phonetic and typographical errors. These areas are purely typographical due to imperfections of the software programs, and do not reflect any compromise in the patient's medical care. Plan discussed with: Patient, Son, Other (RN) My Orders Orders - LAZARO VILLAREAL TENTMAKER Procedure Category Date Status Time Amiodarone Tablet PHA 02/14/25 In Process (Cordarone Tablet) 22:00 Amiodarone Tablet PHA 02/14/25 Logged (Cordarone Tablet) 22:00 Temazepam (Restoril) PHA 02/14/25 Logged 15:30 Pantoprazole PHA 02/14/25 Logged (Protonix) 22:00 Sucralfate Susp PHA 02/14/25 Logged (Carafate Susp) 22:00 Stool Occult Blood LAB 02/14/25 Transmitted 15:23 Complete Blood Count LAB 02/15/25 Verified 05:00 Complete Blood Count LAB 02/16/25 Verified 05:00 Complete Blood Count LAB 02/17/25 Verified 05:00 Comprehensive LAB 02/15/25 Verified Metabolic Panel 05:00 Comprehensive LAB 02/16/25 Verified Metabolic Panel 05:00 Comprehensive LAB 02/17/25 Verified Metabolic Panel 05:00 Chest Xray 1 View XY 02/15/25 Logged 05:00 Chest Xray 1 View XY 02/16/25 Logged 05:00 Chest Xray 1 View XY 02/17/25 Logged 05:00 Date of Service: Feb 14, 2025 Billing Provider: LAZARO VILLAREAL NP Common Visit Codes: [id number] INP/OBS CARE(HIGH) LAZARO VILLAREAL NP Feb 14, 2025 15:33
[2025-02-14] MEDS: POTASSIUM CHL 20MEQ/100ML 100 ML IV ONE (17:56)
[2025-02-14] MEDS: SUCRALFATE 1 GM/10 ML ORAL SUSP GT SCH (21:33)
[2025-02-14] MEDS: PANTOPRAZOLE 40 MG/10 ML VIAL INJ IV SCH (21:33)
[2025-02-14] MEDS: TEMAZEPAM 15 MG CAP PO PRN (21:33)
[2025-02-14] MEDS: AMIODARONE HCL 200 MG TAB PO SCH (21:38)
[2025-02-14] MEDS ORDERED: AMIODARONE HCL 200 MG TAB PO SCH (22:00)
--- NOTE | 2025-02-14 22:22 | DVHPN2 ---
Progress Note - Dictate Date Seen: Feb 14, 2025 Medical Necessity Reason Pt with a Central, PICC or Fol: Yes The following are medically ne: Allan Catheter Reason for allan catheter: Strict I&O Subjective Patient was seen and evaluated in follow up. Patient is on 2 LPM NC. Patient continues to report having generalized weakness, general ill feeling. Patient underwent drainage catheter placement. WBC 26.1, HGB 9.0, HCT 26.6, NA 122, CO2 33. Telemetry reviewed. vital signs Vital Sign Date Time Temp Pulse Resp B/P (MAP) Pulse Ox O2 Delivery O2 Flow Rate FiO2 02/14/25 21:44 98 149/91 02/14/25 21:00 97.0 18 99 97.0 02/14/25 19:30 Nasal Cannula* 2 28 Total Intake and Output 02/13/25 02/13/25 02/14/25 15:00 23:00 07:00 Intake Total 200 ml 440 ml 420 ml Output Total 200 ml Balance 200 ml 240 ml 420 ml medications Current Medications Medications Dose Ordered Sig/Amna Route Start Time Stop Time Status Last Admin Dose Admin Ondansetron HCl 4 mg Q4HP PRN IV 02/07/25 22:45 02/10/25 11:10 4 MG Nitroglycerin 0.4 mg Q5MINP PRN SL 02/07/25 22:45 Metoprolol Tartrate 25 mg BID PO 02/08/25 10:00 02/14/25 21:44 25 MG Acetaminophen/ Hydrocodone Bitart 1 tab Q6HPRN PRN PO 02/08/25 13:00 02/14/25 19:37 1 TAB Piperacillin Sod/ Tazobactam Sod 100 ml @ 25 mls/hr Q8HR IV 02/09/25 22:00 02/14/25 21:33 25 MLS/HR Vancomycin HCl 0 ml @ 0 mls/hr UD IV 02/12/25 12:00 Enteral Nutritional Formula 240 ml BIDWM PO 02/12/25 18:00 02/14/25 17:56 240 ML Magnesium Oxide 800 mg DAILY PO 02/13/25 10:00 02/14/25 10:34 800 MG Vancomycin HCl 100 ml @ 100 mls/hr DAILY@1300 IV 02/13/25 13:00 02/14/25 13:19 100 MLS/HR Amiodarone HCl 200 mg Q12HR PO 02/14/25 22:00 02/14/25 21:38 200 MG Temazepam 15 mg HSPRN PRN PO 02/14/25 15:30 02/14/25 21:33 15 MG Pantoprazole Sodium 40 mg BID IV 02/14/25 22:00 02/14/25 21:33 40 MG Sucralfate 1 gm BID@0600,2200 GT 02/14/25 22:00 02/14/25 21:33 1 GM objective GENERAL: Alert and oriented x 2. No acute distress. EYES: PERRL, EOMI. Anicteric. HENT: Moist mucous membranes. LUNGS: Clear to auscultation bilaterally. CARDIOVASCULAR: Regular rate and rhythm. ABDOMEN: Soft, nontender and nondistended. EXTREMITIES: No edema. NEUROLOGIC: No focal neurological deficits. SKIN: Warm, dry. laboratory and microbiology Laboratory Tests 02/14/25 08:28 Test 02/14/25 08:28 Range/Units Serum Glucose 127 H 74-106 mg/dL Problem List Chest pain. Pneumonia. Hyponatremia. AFib on Eliquis. Hypertension. Type 2 diabetes mellitus. Hypothyroidism. Hyperlipidemia. Assessment/Plan Continued all current supportive medical care. [place] for pain management. Amiodarone. Metoprolol. Nitro SL. GI prophylactics. IV antibiotics as ordered. Additional plan as per the hospital course. Dietary Evaluation Review Comments: Continue current plan of care Expected Outcomes/Goals: To meet >75% estimated needs Lab values to improve Fu 3-5 days Plan discussed with: Patient CC Plasma Assessment Blood Product Administration S: [id number] ABBEY VARELA MD Feb 14, 2025 22:22
[2025-02-15] VITALS (7 sets, daily range): BP systolic 112–140; BP diastolic 54–70; PULSE 73–91; RESP 17–19; TEMP 97.3–97.9; O2SAT 94–99
--- NOTE | 2025-02-15 10:30 | DVHPN2 ---
Subjective Patient continues to report having generalized weakness, general ill feeling Reviewed: Care Plan, H&P, Labs, Medications, Previous Orders, Radiology, Other (Consultations) Changes from previous H/P or p: No Changes General: Per HPI Objective Vitals Vital Signs Date Time Temp Pulse Resp B/P (MAP) Pulse Ox O2 Delivery O2 Flow Rate FiO2 02/15/25 09:02 77 129/62 02/15/25 08:30 97.3 19 99 97.3 02/14/25 19:30 Nasal Cannula* 2 28 Intake/Output Intake and Output 02/15/25 07:00 Intake Total 1300 ml Output Total 1700 ml Balance -400 ml Intake Oral 1200 ml IV Total 100 ml Output Urine Total 1250 ml Chest Tube Drainage Total 450 ml # Bowel Movements 2 General Appearance: Alert, Oriented X3, Cooperative, moderate distress HEENT: Atraumatic, PERRLA Lungs: Other (Decreased air entry on the right side with a scattered crackles) Chest/Breasts: Other (Right chest tube with serous fluid) Cardiovascular: Other (Tachycardia with a irregularly irregular rhythm) Abdomen: Normal bowel sounds, Soft, No tenderness Neuro: Normal speech, Cranial nerves 3-12 NL Skin: Dry, Intact Psych/Mental Status: Mental status NL, Mood NL Medications Current Medications Medications Dose Ordered Sig/Amna Route Start Time Stop Time Status Last Admin Dose Admin Ondansetron HCl 4 mg Q4HP PRN IV 02/07/25 22:45 02/15/25 08:57 4 MG Nitroglycerin 0.4 mg Q5MINP PRN SL 02/07/25 22:45 Metoprolol Tartrate 25 mg BID PO 02/08/25 10:00 02/15/25 09:02 25 MG Acetaminophen/ Hydrocodone Bitart 1 tab Q6HPRN PRN PO 02/08/25 13:00 02/15/25 08:59 1 TAB Piperacillin Sod/ Tazobactam Sod 100 ml @ 25 mls/hr Q8HR IV 02/09/25 22:00 02/15/25 05:26 25 MLS/HR Vancomycin HCl 0 ml @ 0 mls/hr UD IV 02/12/25 12:00 Enteral Nutritional Formula 240 ml BIDWM PO 02/12/25 18:00 02/15/25 09:03 240 ML Magnesium Oxide 800 mg DAILY PO 02/13/25 10:00 02/15/25 08:58 800 MG Vancomycin HCl 100 ml @ 100 mls/hr DAILY@1300 IV 02/13/25 13:00 02/14/25 13:19 100 MLS/HR Amiodarone HCl 200 mg Q12HR PO 02/14/25 22:00 02/15/25 08:57 200 MG Temazepam 15 mg HSPRN PRN PO 02/14/25 15:30 02/14/25 21:33 15 MG Pantoprazole Sodium 40 mg BID IV 02/14/25 22:00 02/15/25 09:02 40 MG Sucralfate 1 gm BID@0600,2200 GT 02/14/25 22:00 02/15/25 05:25 1 GM Laboratory Results Laboratory Tests 02/14/25 08:28 Urinalysis Test 02/10/25 16:30 02/13/25 11:05 Urine Color Colorless (Yellow) Urine Clarity Clear (Clear) Urine pH 5.5 (5.0-9.0) Urine Specific [place] 1.009 (1.001-1.035) Urine Protein Negative (Negative) Urine Ketones Negative (Negative) Urine Blood Negative /uL (Negative) Urine Nitrite Negative (Negative) Urine Bilirubin Negative (Negative) Urine Urobilinogen Normal mg/dL (Negative) Urine Leukocyte Esterase Negative /uL (Negative) Urine RBC 1 /hpf (0 - 4) Urine Microscopic WBC < 1 /HPF (0-5) Urine Squamous Epithelial Cells None seen /hpf (<5) Urine Bacteria None seen /hpf (None Seen) Urine Glucose Normal mg/dL (Normal) Urine Osmolality 528 mOsm/kg Urine Sodium < 10 mmol/L (40-220) L Microbiology Microbiology Date/Time Source Procedure Growth Status 02/13/25 19:10 Pleural Fluid Gram Stain - Final Resulted 02/13/25 19:10 Pleural Fluid Body Fluid Culture - Preliminary Resulted 02/07/25 21:17 Blood Blood Culture - Final NO GROWTH AFTER 5 DAYS OF INCUBATION. Complete Labs and/or images reviewed: Labs reviewed by me, Image(s) reviewed by me Assessment/Plan Assessment/Plan Impression: -acute hypoxic respiratory failure -acute diastolic heart failure -right ventricular heart failure -hyponatremia,? SIADH -community-acquired pneumonia with right loculated empyema -primary hypertension -atrial fibrillation -anemia -rule out GI bleed -obesity Plan: Events: Positive FOBT. Continues to complain of generalized weakness, dyspnea. -recommended PICC line given patient is difficult venous access for lab work. Discussed with the patient in two sons -continue to hold anticoagulation -add PPI, Carafate -continue metoprolol and amiodarone for AFib control -continue current antibiotic therapy -O2 supplementation to keep saturation greater than 92% -status post right chest tube placement by Interventional Radiology. Drainage now serous -repeat labs, chest x-ray in a.m. Total time spent with patient discussing and formulating plan of care: 35 minutes. This medical document was created using an electronic medical record system with [employer] dictation system. Although this document has been carefully reviewed, there may still be some phonetic and typographical errors. These areas are purely typographical due to imperfections of the software programs, and do not reflect any compromise in the patient's medical care. Plan discussed with: Patient, Son, Other (RN) My Orders Orders - LAZARO VILLAREAL NP Procedure Category Date Status Time Amiodarone Tablet PHA 02/14/25 In Process (Cordarone Tablet) 22:00 Temazepam (Restoril) PHA 02/14/25 In Process 15:30 Pantoprazole PHA 02/14/25 In Process (Protonix) 22:00 Sucralfate Susp PHA 02/14/25 In Process (Carafate Susp) 22:00 Complete Blood Count LAB 02/15/25 Logged 05:00 Complete Blood Count LAB 02/16/25 Verified 05:00 Complete Blood Count LAB 02/17/25 Verified 05:00 Comprehensive LAB 02/15/25 Logged Metabolic Panel 05:00 Comprehensive LAB 02/16/25 Verified Metabolic Panel 05:00 Comprehensive LAB 02/17/25 Verified Metabolic Panel 05:00 Chest Xray 1 View XY 02/15/25 Taken 05:00 Chest Xray 1 View XY 02/16/25 Logged 05:00 Chest Xray 1 View XY 02/17/25 Logged 05:00 Date of Service: Feb 15, 2025 Billing Provider: LAZARO VILLAREAL NP Common Visit Codes: [id number] INP/OBS CARE(HIGH) LAZARO VILLAREAL NP Feb 15, 2025 10:30
[2025-02-15 10:54] LABS: Hemoglobin 7.4 g/dL (12.2-16.2); Nucleated Red Blood Cells % 0.1 %
[2025-02-15 10:55] LABS: Hematocrit 21.2 % (36.0-46.0); Mean Corpuscular Hemoglobin 31.1 pg (28.0-32.0); Mean Corpuscular Volume 88.8 fL (80.0-100.0)
[2025-02-15 11:12] LABS: Alanine Aminotransferase 38 U/L (7-40); Alkaline Phosphatase 90 U/L (46-116); Anion Gap 3 (5-15); BUN/Creatinine Ratio 14.0 (10.0-20.0); Potassium 4.1 mmol/L (3.5-5.1)
[2025-02-15 11:13] LABS: Bilirubin, Total 0.4 mg/dL (0.2-1.0)
[2025-02-15 11:15] LABS: Albumin 2.8 g/dL (3.2-4.8); Blood Urea Nitrogen 8 mg/dL (9-23); Calcium 7.8 mg/dL (8.7-10.4); Carbon Dioxide 34 mmol/L (20-31); Chloride 82 mmol/L (98-107); Glucose 109 mg/dL (74-106); Total Protein 4.6 g/dL (5.7-8.2)
[2025-02-15 11:17] LABS: Sodium 119 mmol/L (136-145)
[2025-02-15 12:07] LABS: Glucose, Body Fluid 18.0 mg/dL (.)
[2025-02-15 13:07] LABS: LD, Body Fluid 5912.0 IU/L (.)
--- NOTE | 2025-02-15 13:42 | DVH ---
XY CHEST XRAY 1 VIEW, HISTORY: pna COMPARISON: XY CHEST XRAY 1 VIEW on DOS: 02/13/25, CT CHEST WITHOUT CONTRAST on DOS: 02/12/25, US CHEST U LTRASOUND on DOS: 02/12/25 XY CHEST XRAY 1 VIEW on DOS: 02/13/25, CT CHEST WITHOUT CONTRAST on DOS: 02/12/25, US CHEST ULTRASOUND on DOS: 02/12/25 TECHNICAL DATA: 1 view of the chest was obtained. FINDINGS: Lines and tubes: Right pigtail chest tube. Cardiomediastinal silhouette: Prominent Pulmonary vasculature: prominent Lung expansion: normal Lung airspace: Bibasilar patchy opacity Lung interstitium: prominent Pleura: Decreased right pleural effusion. Pneumothorax: no Bones: Unremarkable Other: no IMPRESSION: Bibasilar patchy opacity, similar to prior. Decreased right pleural effusion. Right pigtail chest tub e.
--- NOTE | 2025-02-15 16:34 | DVHPN2 ---
Progress Note Date Seen: Feb 15, 2025 Medical Necessity Reason Pt with a Central, PICC or Fol: Yes The following are medically ne: PICC Line, Allan Catheter Reason for allan catheter: Strict I&O Subjective Changes from previous H/P or p: No Changes Objective vital signs Vital Sign Date Time Temp Pulse Resp B/P (MAP) Pulse Ox O2 Delivery O2 Flow Rate FiO2 02/15/25 13:30 97.6 73 18 112/61 (78) 98 97.6 02/15/25 07:50 Nasal Cannula* 3 32 Total Intake and Output 02/14/25 02/14/25 02/15/25 15:00 23:00 07:00 Intake Total 800 ml 500 ml Output Total 850 ml 850 ml Balance -50 ml -350 ml medications Current Medications Medications Dose Ordered Sig/Amna Route Start Time Stop Time Status Last Admin Dose Admin Ondansetron HCl 4 mg Q4HP PRN IV 02/07/25 22:45 02/15/25 08:57 4 MG Nitroglycerin 0.4 mg Q5MINP PRN SL 02/07/25 22:45 Metoprolol Tartrate 25 mg BID PO 02/08/25 10:00 02/15/25 09:02 25 MG Acetaminophen/ Hydrocodone Bitart 1 tab Q6HPRN PRN PO 02/08/25 13:00 02/15/25 08:59 1 TAB Piperacillin Sod/ Tazobactam Sod 100 ml @ 25 mls/hr Q8HR IV 02/09/25 22:00 02/15/25 14:03 25 MLS/HR Vancomycin HCl 0 ml @ 0 mls/hr UD IV 02/12/25 12:00 Enteral Nutritional Formula 240 ml BIDWM PO 02/12/25 18:00 02/15/25 09:03 240 ML Magnesium Oxide 800 mg DAILY PO 02/13/25 10:00 02/15/25 08:58 800 MG Vancomycin HCl 100 ml @ 100 mls/hr DAILY@1300 IV 02/13/25 13:00 02/15/25 13:20 100 MLS/HR Amiodarone HCl 200 mg Q12HR PO 02/14/25 22:00 02/15/25 08:57 200 MG Temazepam 15 mg HSPRN PRN PO 02/14/25 15:30 02/14/25 21:33 15 MG Pantoprazole Sodium 40 mg BID IV 02/14/25 22:00 02/15/25 09:02 40 MG Sucralfate 1 gm BID@0600,2200 GT 02/14/25 22:00 02/15/25 05:25 1 GM Examination: GENERAL:Abnormal, LUNGS:Abnormal, SKIN:Normal laboratory and microbiology Laboratory Tests 02/15/25 10:38 Test 02/15/25 11:55 Range/Units Serum Glucose Pending Microbiology Date/Time Source Procedure Growth Status 02/14/25 10:45 Pleural Fluid Gram Stain Pending Resulted 02/14/25 10:45 Pleural Fluid Body Fluid Culture - Preliminary Resulted 02/07/25 21:17 Blood Blood Culture - Final NO GROWTH AFTER 5 DAYS OF INCUBATION. Complete Problem List/Assessment/Plan Problem List/Assessment/Plan 84-year-old female past medical history of congestive heart failure presents to the hospital with shortness of breath and dyspnea. She was found to have large pleural effusion. Nephrology consulted for hyponatremia. Hyponatremia in hypervolemia Diastolic heart failure with RV failure Atrial fibrillation on Eliquis pleural effusion s/p thoracentesis, hemothorax anemia Preserved renal function CKD II Hyperkalemia -> now low K hyponatremia sepsis s/p chest tube still draining draw new labs Uosm, serum osm, BMP from PICC line. will give 3% based on results Pulmonology Cardiology Low-salt diet Rest of care as per primary medical team guarded prognosis Plan discussed with: Patient My Orders My Orders Orders - ROSEMARIE MCKEON MD Procedure Category Date Status Time Basic Metabolic Panel LAB 02/15/25 In Process 16:22 Osmolality, Serum LAB 02/15/25 In Process 16:22 Osmolality Urine LAB 02/15/25 Logged 16:31 Dietary Evaluation Review Comments: Continue current plan of care Expected Outcomes/Goals: To meet >75% estimated needs Lab values to improve Fu 3-5 days Total Time (mins): 35 CC Plasma Assessment Blood Product Administration S: [id number] ROSEMARIE MCKEON MD Feb 15, 2025 16:34
[2025-02-15] MEDS: LIDOCAINE 1% (LOCAL ANESTH.) PF 5ml SDV ID ONE (16:48)
--- NOTE | 2025-02-15 17:07 | DVH ---
CHEST RADIOGRAPH Indication: PICC LINE PLACEMENT, Technique: Single frontal view of the chest was obtained COMPARISON: XY CHEST XRAY 1 VIEW on DOS: 02/15/25, XY CHEST XRAY 1 VIEW on DOS: 02/13/25, CT CHEST WITHOU T CONTRAST on DOS: 02/12/25, US CHEST ULTRASOUND on DOS: 02/12/25, XY CHEST PORTABLE on DOS: 02/12/25 FINDINGS: Lines and Tubes: Right PICC in satisfactory position. Lungs: Multifocal right lung airspace disease. Pleura: Small right pleural effusion. No pneumothorax. Cardiomediastinal contours: Unremarkable Bones: Unremarkable IMPRESSION: Multifocal airspace disease. Right PICC in satisfactory position.
--- NOTE | 2025-02-15 17:22 | DVHPN2 ---
Progress Note - Dictate Date Seen: Feb 15, 2025 Medical Necessity Reason Pt with a Central, PICC or Fol: Yes The following are medically ne: PICC Line, Allan Catheter Reason for allan catheter: Strict I&O vital signs Vital Sign Date Time Temp Pulse Resp B/P (MAP) Pulse Ox O2 Delivery O2 Flow Rate FiO2 02/15/25 13:30 97.6 73 18 112/61 (78) 98 97.6 02/15/25 07:50 Nasal Cannula* 3 32 Total Intake and Output 02/14/25 02/14/25 02/15/25 15:00 23:00 07:00 Intake Total 800 ml 500 ml Output Total 850 ml 850 ml Balance -50 ml -350 ml medications Current Medications Medications Dose Ordered Sig/Amna Route Start Time Stop Time Status Last Admin Dose Admin Ondansetron HCl 4 mg Q4HP PRN IV 02/07/25 22:45 02/15/25 08:57 4 MG Nitroglycerin 0.4 mg Q5MINP PRN SL 02/07/25 22:45 Metoprolol Tartrate 25 mg BID PO 02/08/25 10:00 02/15/25 09:02 25 MG Acetaminophen/ Hydrocodone Bitart 1 tab Q6HPRN PRN PO 02/08/25 13:00 02/15/25 16:50 1 TAB Piperacillin Sod/ Tazobactam Sod 100 ml @ 25 mls/hr Q8HR IV 02/09/25 22:00 02/15/25 14:03 25 MLS/HR Vancomycin HCl 0 ml @ 0 mls/hr UD IV 02/12/25 12:00 Enteral Nutritional Formula 240 ml BIDWM PO 02/12/25 18:00 02/15/25 09:03 240 ML Magnesium Oxide 800 mg DAILY PO 02/13/25 10:00 02/15/25 08:58 800 MG Amiodarone HCl 200 mg Q12HR PO 02/14/25 22:00 02/15/25 08:57 200 MG Temazepam 15 mg HSPRN PRN PO 02/14/25 15:30 02/14/25 21:33 15 MG Pantoprazole Sodium 40 mg BID IV 02/14/25 22:00 02/15/25 09:02 40 MG Sucralfate 1 gm BID@0600,2200 GT 02/14/25 22:00 02/15/25 05:25 1 GM Sodium Chloride 10 ml QSHIFT@10,22 IV 02/15/25 22:00 Vancomycin HCl 250 ml @ 250 mls/hr Q12H IV 02/16/25 01:00 laboratory and microbiology Laboratory Tests 02/15/25 10:38 Test 02/15/25 10:38 Range/Units Serum Glucose 109 H 74-106 mg/dL Assessment/Plan Impression Acute hypoxemic respiratory failure Loculated pleural effusions Empyema CHF Patient seen and examined Events Low oxygen requirements On 2 liters nasal cannula No distress Right gui catheter in place for effusions 1st pleural fluid sample shows WBC of 36,000 2nd samples shows WBC of 700 Labs and imaging reviewed Chest x-ray shows loculated right pleural effusions and cardiomegaly Management Supplemental oxygen Titrate to maintain sats 90% or above Incentive spirometry Continue antibiotics F/u cultures Bronchodilators Monitor renal function Monitor electrolytes Supplement as needed Monitor blood count Chest tube to continuous negative suction DVT prophylaxis Dietary Evaluation Review Comments: Continue current plan of care Expected Outcomes/Goals: To meet >75% estimated needs Lab values to improve Fu 3-5 days Plan discussed with: Patient CC Plasma Assessment Blood Product Administration S: [id number] BEE ARREDONDO MD Feb 15, 2025 17:22
--- NOTE | 2025-02-15 17:22 | DVHPN2 ---
Progress Note - Dictate Date Seen: Feb 14, 2025 Medical Necessity Reason Pt with a Central, PICC or Fol: Yes The following are medically ne: PICC Line, Allan Catheter Reason for allan catheter: Strict I&O vital signs Vital Sign Date Time Temp Pulse Resp B/P (MAP) Pulse Ox O2 Delivery O2 Flow Rate FiO2 02/15/25 13:30 97.6 73 18 112/61 (78) 98 97.6 02/15/25 07:50 Nasal Cannula* 3 32 Total Intake and Output 02/14/25 02/14/25 02/15/25 15:00 23:00 07:00 Intake Total 800 ml 500 ml Output Total 850 ml 850 ml Balance -50 ml -350 ml medications Current Medications Medications Dose Ordered Sig/Amna Route Start Time Stop Time Status Last Admin Dose Admin Ondansetron HCl 4 mg Q4HP PRN IV 02/07/25 22:45 02/15/25 08:57 4 MG Nitroglycerin 0.4 mg Q5MINP PRN SL 02/07/25 22:45 Metoprolol Tartrate 25 mg BID PO 02/08/25 10:00 02/15/25 09:02 25 MG Acetaminophen/ Hydrocodone Bitart 1 tab Q6HPRN PRN PO 02/08/25 13:00 02/15/25 16:50 1 TAB Piperacillin Sod/ Tazobactam Sod 100 ml @ 25 mls/hr Q8HR IV 02/09/25 22:00 02/15/25 14:03 25 MLS/HR Vancomycin HCl 0 ml @ 0 mls/hr UD IV 02/12/25 12:00 Enteral Nutritional Formula 240 ml BIDWM PO 02/12/25 18:00 02/15/25 09:03 240 ML Magnesium Oxide 800 mg DAILY PO 02/13/25 10:00 02/15/25 08:58 800 MG Amiodarone HCl 200 mg Q12HR PO 02/14/25 22:00 02/15/25 08:57 200 MG Temazepam 15 mg HSPRN PRN PO 02/14/25 15:30 02/14/25 21:33 15 MG Pantoprazole Sodium 40 mg BID IV 02/14/25 22:00 02/15/25 09:02 40 MG Sucralfate 1 gm BID@0600,2200 GT 02/14/25 22:00 02/15/25 05:25 1 GM Sodium Chloride 10 ml QSHIFT@10,22 IV 02/15/25 22:00 Vancomycin HCl 250 ml @ 250 mls/hr Q12H IV 02/16/25 01:00 laboratory and microbiology Laboratory Tests 02/15/25 10:38 Test 02/15/25 10:38 Range/Units Serum Glucose 109 H 74-106 mg/dL Assessment/Plan Impression Acute hypoxemic respiratory failure Loculated pleural effusions Empyema CHF Patient seen and examined Events Low oxygen requirements On 2 liters nasal cannula No acute events Right gui catheter in place for pleural effusions Labs and imaging reviewed Chest x-ray shows loculated right pleural effusions and cardiomegaly Management Supplemental oxygen Titrate to maintain sats 90% or above Incentive spirometry Continue antibiotics F/u cultures Bronchodilators Monitor renal function Monitor electrolytes Supplement as needed Monitor blood count Chest tube to continuous negative suction DVT prophylaxis Dietary Evaluation Review Comments: Continue current plan of care Expected Outcomes/Goals: To meet >75% estimated needs Lab values to improve Fu 3-5 days Plan discussed with: Patient CC Plasma Assessment Blood Product Administration S: [id number] BEE ARREDONDO MD Feb 15, 2025 17:22
[2025-02-15 17:50] LABS: Potassium 4.4 mmol/L (3.5-5.1)
[2025-02-15 17:53] LABS: Calcium 7.7 mg/dL (8.7-10.4); Carbon Dioxide 34 mmol/L (20-31)
[2025-02-15 17:56] LABS: Anion Gap 3 (5-15); BUN/Creatinine Ratio 21.6 (10.0-20.0); Blood Urea Nitrogen 11 mg/dL (9-23); Chloride 79 mmol/L (98-107); Glucose 107 mg/dL (74-106)
[2025-02-15 17:59] LABS: Sodium 116 mmol/L (136-145)
[2025-02-15] MEDS: SODIUM CHL 3% 500 ML IV ONE (18:54)
--- NOTE | 2025-02-15 20:57 | DVHPN2 ---
Progress Note - Dictate Date Seen: Feb 15, 2025 Medical Necessity Reason Pt with a Central, PICC or Fol: Yes The following are medically ne: PICC Line, Allan Catheter Reason for allan catheter: Strict I&O Subjective Patient was seen and evaluated in follow up. Patient is on 2 LPM NC. Patient complains of feeling weak/fatigued.WBC 20.7, HGB 7.4, HCT 21.2. Chest x-ray shows multifocal airspace disease. Telemetry reviewed. vital signs Vital Sign Date Time Temp Pulse Resp B/P (MAP) Pulse Ox O2 Delivery O2 Flow Rate FiO2 02/15/25 18:48 70 130/65 02/15/25 17:30 97.3 18 96 97.3 02/15/25 07:50 Nasal Cannula* 3 32 Total Intake and Output 02/14/25 02/14/25 02/15/25 15:00 23:00 07:00 Intake Total 800 ml 500 ml Output Total 850 ml 850 ml Balance -50 ml -350 ml medications Current Medications Medications Dose Ordered Sig/Amna Route Start Time Stop Time Status Last Admin Dose Admin Ondansetron HCl 4 mg Q4HP PRN IV 02/07/25 22:45 02/15/25 08:57 4 MG Nitroglycerin 0.4 mg Q5MINP PRN SL 02/07/25 22:45 Metoprolol Tartrate 25 mg BID PO 02/08/25 10:00 02/15/25 09:02 25 MG Acetaminophen/ Hydrocodone Bitart 1 tab Q6HPRN PRN PO 02/08/25 13:00 02/15/25 16:50 1 TAB Piperacillin Sod/ Tazobactam Sod 100 ml @ 25 mls/hr Q8HR IV 02/09/25 22:00 02/15/25 14:03 25 MLS/HR Vancomycin HCl 0 ml @ 0 mls/hr UD IV 02/12/25 12:00 Enteral Nutritional Formula 240 ml BIDWM PO 02/12/25 18:00 02/15/25 18:00 240 ML Magnesium Oxide 800 mg DAILY PO 02/13/25 10:00 02/15/25 08:58 800 MG Amiodarone HCl 200 mg Q12HR PO 02/14/25 22:00 02/15/25 08:57 200 MG Temazepam 15 mg HSPRN PRN PO 02/14/25 15:30 02/14/25 21:33 15 MG Pantoprazole Sodium 40 mg BID IV 02/14/25 22:00 02/15/25 09:02 40 MG Sucralfate 1 gm BID@0600,2200 GT 02/14/25 22:00 02/15/25 05:25 1 GM Sodium Chloride 10 ml QSHIFT@10,22 IV 02/15/25 22:00 Vancomycin HCl 250 ml @ 250 mls/hr Q12H IV 02/16/25 01:00 objective GENERAL: Alert and oriented x 2. No acute distress. EYES: PERRL, EOMI. Anicteric. HENT: Moist mucous membranes. LUNGS: Clear to auscultation bilaterally. CARDIOVASCULAR: Regular rate and rhythm. ABDOMEN: Soft, nontender and nondistended. EXTREMITIES: No edema. NEUROLOGIC: No focal neurological deficits. SKIN: Warm, dry. laboratory and microbiology Laboratory Tests 02/15/25 17:16 02/15/25 10:38 Test 02/15/25 17:16 Range/Units Serum Glucose 107 H 74-106 mg/dL Problem List Chest pain. Pneumonia. Hyponatremia. AFib on Eliquis. Hypertension. Type 2 diabetes mellitus. Hypothyroidism. Hyperlipidemia. Assessment/Plan Continued all current supportive medical care. Ronda for pain management. Amiodarone. Metoprolol. Nitro SL. GI prophylactics. IV antibiotics as ordered. Additional plan as per the hospital course. Dietary Evaluation Review Comments: Continue current plan of care Expected Outcomes/Goals: To meet >75% estimated needs Lab values to improve Fu 3-5 days Plan discussed with: Patient CC Plasma Assessment Blood Product Administration S: [id number] ABBEY VARELA MD Feb 15, 2025 20:57
[2025-02-15] MEDS: SODIUM CHLOR 0.9% PF (SALINE LOCK) 10ML VIAL/SYR IV SCH (21:27)
[2025-02-16] VITALS (9 sets, daily range): BP systolic 120–155; BP diastolic 58–98; PULSE 82–97; RESP 18–21; TEMP 97.4–98.5; O2SAT 94–99
[2025-02-16] MEDS: diphenhdrAMINE HCL 50 MG/1 ML VL IV ONE (01:12)
[2025-02-16] MEDS: VANCOMYCIN 1GM/250ML KIT 250 ML IV SCH (01:31)
--- NOTE | 2025-02-16 05:47 | DVH ---
CHEST RADIOGRAPH Indication: dislodged chest tube. Technique: Single frontal view of the chest was obtained COMPARISON: XY CHEST PORTABLE on DOS: 02/15/25, XY CHEST XRAY 1 VIEW on DOS: 02/15/25, XY CHEST XRAY 1 EW on DOS: 02/13/25, CT CHEST WITHOUT CONTRAST on DOS: 02/12/25, US CHEST ULTRASOUND on DOS: 02/12/25 FINDINGS: Lines and Tubes: Less chest tube in satisfactory position. Right peripherally inserted central dorian ter unchanged. Lungs: Stable appearing bilateral pleural effusions, eboqh-lzvaxod-fhjw-left, and bibasilar pulmonary airspace disease. No pneumothorax. Cardiomediastinal contours: Cardiomegaly. Bones: Unremarkable IMPRESSION: 1. Stable appearing bilateral pleural effusions, [id number]-bctn-left, and bibasilar pulmonary air space disease. 2. Cardiomegaly. 3. Lines and tubes in stable unchanged position.
[2025-02-16 07:48] LABS: Hemoglobin 7.6 g/dL (12.2-16.2); Nucleated Red Blood Cells % 0.1 %
[2025-02-16 07:51] LABS: Hematocrit 21.7 % (36.0-46.0); Mean Corpuscular Hemoglobin 31.4 pg (28.0-32.0); Mean Corpuscular Volume 90.1 fL (80.0-100.0)
[2025-02-16 08:02] LABS: Alanine Aminotransferase 33 U/L (7-40); Alkaline Phosphatase 97 U/L (46-116); Anion Gap 6 (5-15); BUN/Creatinine Ratio 13.3 (10.0-20.0); Bilirubin, Total 0.3 mg/dL (0.2-1.0); Carbon Dioxide 30 mmol/L (20-31); Potassium 4.2 mmol/L (3.5-5.1)
[2025-02-16 08:08] LABS: Chloride 83 mmol/L (98-107); Glucose 152 mg/dL (74-106); Sodium 119 mmol/L (136-145)
[2025-02-16 08:09] LABS: Albumin 2.9 g/dL (3.2-4.8); Blood Urea Nitrogen 8 mg/dL (9-23); Calcium 8.1 mg/dL (8.7-10.4); Total Protein 5.0 g/dL (5.7-8.2)
--- NOTE | 2025-02-16 09:37 | DVHPN2 ---
Subjective Patient agitated, belligerent this a.m. Reviewed: Care Plan, H&P, Labs, Medications, Previous Orders, Radiology, Other (Consultations) Changes from previous H/P or p: No Changes General: Per HPI Objective Vitals Vital Signs Date Time Temp Pulse Resp B/P (MAP) Pulse Ox O2 Delivery O2 Flow Rate FiO2 02/16/25 05:00 98.5 84 21 147/84 (105) 98 98.5 02/15/25 20:00 Nasal Cannula* 4 36 Intake/Output Intake and Output 02/16/25 07:00 Intake Total 2440 ml Output Total 1365 ml Balance 1075 ml Intake Oral 2000 ml IV Total 440 ml Output Urine Total 1275 ml Chest Tube Drainage Total 90 ml # Bowel Movements 1 General Appearance: Alert, Oriented X3, Cooperative, moderate distress HEENT: Atraumatic, PERRLA Lungs: Other (Decreased air entry on the right side with a scattered crackles) Chest/Breasts: Other (Right chest tube with serous fluid) Cardiovascular: Other (Tachycardia with a irregularly irregular rhythm) Abdomen: Normal bowel sounds, Soft, No tenderness Neuro: Normal speech, Cranial nerves 3-12 NL Skin: Dry, Intact Psych/Mental Status: Mental status NL, Mood NL Medications Current Medications Medications Dose Ordered Sig/Amna Route Start Time Stop Time Status Last Admin Dose Admin Ondansetron HCl 4 mg Q4HP PRN IV 02/07/25 22:45 02/15/25 08:57 4 MG Nitroglycerin 0.4 mg Q5MINP PRN SL 02/07/25 22:45 Metoprolol Tartrate 25 mg BID PO 02/08/25 10:00 02/15/25 21:28 25 MG Acetaminophen/ Hydrocodone Bitart 1 tab Q6HPRN PRN PO 02/08/25 13:00 02/15/25 16:50 1 TAB Piperacillin Sod/ Tazobactam Sod 100 ml @ 25 mls/hr Q8HR IV 02/09/25 22:00 02/16/25 05:28 25 MLS/HR Vancomycin HCl 0 ml @ 0 mls/hr UD IV 02/12/25 12:00 Enteral Nutritional Formula 240 ml BIDWM PO 02/12/25 18:00 02/15/25 18:00 240 ML Magnesium Oxide 800 mg DAILY PO 02/13/25 10:00 02/15/25 08:58 800 MG Amiodarone HCl 200 mg Q12HR PO 02/14/25 22:00 02/15/25 21:26 200 MG Temazepam 15 mg HSPRN PRN PO 02/14/25 15:30 02/15/25 21:26 15 MG Pantoprazole Sodium 40 mg BID IV 02/14/25 22:00 02/15/25 21:26 40 MG Sucralfate 1 gm BID@0600,2200 GT 02/14/25 22:00 02/16/25 05:28 1 GM Sodium Chloride 10 ml QSHIFT@, IV 02/15/25 22:00 02/15/25 21:27 10 ML Vancomycin HCl 250 ml @ 250 mls/hr Q12H IV 02/16/25 01:00 02/16/25 01:31 250 MLS/HR Haloperidol Lactate 2.5 mg Q8HP PRN IV 02/16/25 09:15 UNV Laboratory Results Laboratory Tests 02/16/25 06:46 Chemistry Test 02/15/25 10:38 02/15/25 17:16 02/16/25 06:46 Albumin 2.8 g/dL (3.2-4.8) L 2.9 g/dL (3.2-4.8) L Calcium Level 7.8 mg/dL (8.7-10.4) L 7.7 mg/dL (8.7-10.4) L 8.1 mg/dL (8.7-10.4) L Total Protein 4.6 g/dL (5.7-8.2) L 5.0 g/dL (5.7-8.2) L LFT Test 02/15/25 10:38 02/16/25 06:46 Alanine Aminotransferase (ALT) 38 U/L (7-40) 33 U/L (7-40) Alkaline Phosphatase 90 U/L (46-116) 97 U/L (46-116) Aspartate Amino Transferase (AST) 35 U/L (13-40) 27 U/L (13-40) Total Bilirubin 0.4 mg/dL (0.2-1.0) 0.3 mg/dL (0.2-1.0) Urinalysis Test 02/10/25 16:30 02/13/25 11:05 02/15/25 18:10 Urine Color Colorless (Yellow) Urine Clarity Clear (Clear) Urine pH 5.5 (5.0-9.0) Urine Specific [place] 1.009 (1.001-1.035) Urine Protein Negative (Negative) Urine Ketones Negative (Negative) Urine Blood Negative /uL (Negative) Urine Nitrite Negative (Negative) Urine Bilirubin Negative (Negative) Urine Urobilinogen Normal mg/dL (Negative) Urine Leukocyte Esterase Negative /uL (Negative) Urine RBC 1 /hpf (0 - 4) Urine Microscopic WBC < 1 /HPF (0-5) Urine Squamous Epithelial Cells None seen /hpf (<5) Urine Bacteria None seen /hpf (None Seen) Urine Glucose Normal mg/dL (Normal) Urine Sodium < 10 mmol/L (40-220) L Urine Osmolality 322 mOsm/kg Microbiology Microbiology Date/Time Source Procedure Growth Status 02/14/25 10:45 Pleural Fluid Gram Stain Pending Resulted 02/14/25 10:45 Pleural Fluid Body Fluid Culture - Preliminary Resulted 02/07/25 21:17 Blood Blood Culture - Final NO GROWTH AFTER 5 DAYS OF INCUBATION. Complete Labs and/or images reviewed: Labs reviewed by me, Image(s) reviewed by me Assessment/Plan Assessment/Plan Impression: -acute hypoxic respiratory failure -acute diastolic heart failure -right ventricular heart failure -hyponatremia,? SIADH -community-acquired pneumonia with right loculated empyema -primary hypertension -atrial fibrillation -anemia -rule out GI bleed -obesity -schizophrenia, bipolar (disclosed by patient's sons) Plan: Events: Patient with worsening psychological status. Patient agitated and belligerent. PICC line placed.-after long discussion with the patient's son, he states that the patient sees Psychiatry for bipolar and schizophrenia. Home medications reviewed without any noted mood stabilizers or antipsychotics. Given patient's current state, IV Haldol we will be ordered. QT noted to be 330, assessed by myself. Patient with persistent hyponatremia despite 3% saline. -GI consultation -continue to hold anticoagulation -add PPI, Carafate -continue metoprolol and amiodarone for AFib control -continue current antibiotic therapy -O2 supplementation to keep saturation greater than 92% -status post right chest tube placement by Interventional Radiology. Drainage now serous -repeat labs, chest x-ray in a.m. Total time spent with patient discussing and formulating plan of care: 35 minutes. This medical document was created using an electronic medical record system with [employer] dictation system. Although this document has been carefully reviewed, there may still be some phonetic and typographical errors. These areas are purely typographical due to imperfections of the software programs, and do not reflect any compromise in the patient's medical care. Plan discussed with: Patient, Other (RN) My Orders Orders - LAZARO VILLAREAL NP Procedure Category Date Status Time * Picc Line Consult CONS 02/15/25 Transmitted 13:36 Nursing Protocol Picc PEDRITO 02/15/25 In Process 16:32 Change Dressing Prn PEDRITO 02/15/25 In Process 16:32 Sodium Chloride Lock PHA 02/15/25 In Process (Saline Lock Ns) 22:00 Do Not Use Picc For PEDRITO 02/15/25 In Process Blood Cult 16:32 May Draw Blood From PEDRITO 02/15/25 In Process Picc 16:32 Chest Portable XY 02/15/25 Resulted 16:32 Ok To Use Picc PEDRITO 02/15/25 In Process 16:32 Change Picc Dressing PEDRITO 02/15/25 In Process Q7 Days 16:32 * Gi Dvh Aircraft Log Clerk CONS 02/16/25 Transmitted 07:49 Haloperidol Lactate PHA 02/16/25 Logged Injection (Haldol) 09:15 Date of Service: Feb 16, 2025 Billing Provider: LAZARO VILLAREAL NP Common Visit Codes: [id number] INP/OBS CARE(HIGH) LAZARO VILLAREAL NP Feb 16, 2025 09:37
--- NOTE | 2025-02-16 09:49 | DVHNC2 ---
Chest Tube Indication: Effusion Procedure: Sterile preparation Anesthetic: Lidocaine Site: R 5th intercostal space Drainage: Fluid Date of Service: Feb 16, 2025 Billing Provider: MUSA BATISTA MD Common Visit Codes: [id number] INP/OBS CARE (HIGH) Secondary Visit Codes: [id number] STANDBY SERVICE Consultation Codes: [id number] CONSULT <45MIN Procedure Codes: [id number] OF CHEST TUBE MUSA BATISTA MD Feb 16, 2025 09:49
[2025-02-16] MEDS: HALOPERIDOL LACTATE 5 MG/ML INJ VIAL IV PRN (10:34)
--- NOTE | 2025-02-16 15:36 | DVHPN2 ---
Progress Note - Dictate Date Seen: Feb 16, 2025 Medical Necessity Reason Pt with a Central, PICC or Fol: Yes The following are medically ne: PICC Line, Allan Catheter Reason for allan catheter: Strict I&O vital signs Vital Sign Date Time Temp Pulse Resp B/P (MAP) Pulse Ox O2 Delivery O2 Flow Rate FiO2 02/16/25 11:35 81 120/58 02/16/25 09:00 98.0 20 97 98.0 02/16/25 07:50 Nasal Cannula* 4 36 Total Intake and Output 02/15/25 02/15/25 02/16/25 15:00 23:00 07:00 Intake Total 100 ml 1700 ml 840 ml Output Total 100 ml 1265 ml Balance 100 ml 1600 ml -425 ml medications Current Medications Medications Dose Ordered Sig/Amna Route Start Time Stop Time Status Last Admin Dose Admin Ondansetron HCl 4 mg Q4HP PRN IV 02/07/25 22:45 02/15/25 08:57 4 MG Nitroglycerin 0.4 mg Q5MINP PRN SL 02/07/25 22:45 Metoprolol Tartrate 25 mg BID PO 02/08/25 10:00 02/16/25 10:35 25 MG Acetaminophen/ Hydrocodone Bitart 1 tab Q6HPRN PRN PO 02/08/25 13:00 02/15/25 16:50 1 TAB Piperacillin Sod/ Tazobactam Sod 100 ml @ 25 mls/hr Q8HR IV 02/09/25 22:00 02/16/25 14:13 25 MLS/HR Vancomycin HCl 0 ml @ 0 mls/hr UD IV 02/12/25 12:00 Enteral Nutritional Formula 240 ml BIDWM PO 02/12/25 18:00 02/16/25 08:00 240 ML Magnesium Oxide 800 mg DAILY PO 02/13/25 10:00 02/16/25 10:34 800 MG Amiodarone HCl 200 mg Q12HR PO 02/14/25 22:00 02/16/25 10:33 200 MG Temazepam 15 mg HSPRN PRN PO 02/14/25 15:30 02/15/25 21:26 15 MG Pantoprazole Sodium 40 mg BID IV 02/14/25 22:00 02/16/25 10:34 40 MG Sucralfate 1 gm BID@0600,2200 GT 02/14/25 22:00 02/16/25 05:28 1 GM Sodium Chloride 10 ml QSHIFT@10,22 IV 02/15/25 22:00 02/16/25 10:00 10 ML Vancomycin HCl 250 ml @ 250 mls/hr Q12H IV 02/16/25 01:00 02/16/25 13:05 250 MLS/HR Haloperidol Lactate 2.5 mg Q8HP PRN IV 02/16/25 09:15 02/16/25 10:34 2.5 MG laboratory and microbiology Laboratory Tests 02/16/25 06:46 Test 02/16/25 06:46 Range/Units Serum Glucose 152 H 74-106 mg/dL Assessment/Plan Impression Acute hypoxemic respiratory failure Loculated pleural effusions Empyema CHF Patient seen and examined Events Low oxygen requirements On 2 liters nasal cannula No acute events Patient accidentally pulled out chest tube which was replaced by ER physician Labs and imaging reviewed Management Supplemental oxygen Titrate to maintain sats 90% or above Incentive spirometry Continue antibiotics F/u cultures Bronchodilators Monitor renal function Monitor electrolytes Supplement as needed Monitor blood count Chest tube to continuous negative suction DVT prophylaxis Dietary Evaluation Review Comments: Continue current plan of care Expected Outcomes/Goals: To meet >75% estimated needs Lab values to improve Fu 3-5 days Plan discussed with: Patient CC Plasma Assessment Blood Product Administration S: [id number] BEE ARREDONDO MD Feb 16, 2025 15:36
--- NOTE | 2025-02-16 16:03 | DVHPN2 ---
Progress Note Date Seen: Feb 16, 2025 Medical Necessity Reason Pt with a Central, PICC or Fol: Yes The following are medically ne: PICC Line, Allan Catheter Reason for allan catheter: Strict I&O Objective vital signs Vital Sign Date Time Temp Pulse Resp B/P (MAP) Pulse Ox O2 Delivery O2 Flow Rate FiO2 02/16/25 11:35 81 120/58 02/16/25 09:00 98.0 20 97 98.0 02/16/25 07:50 Nasal Cannula* 4 36 Total Intake and Output 02/15/25 02/15/25 02/16/25 15:00 23:00 07:00 Intake Total 100 ml 1700 ml 840 ml Output Total 100 ml 1265 ml Balance 100 ml 1600 ml -425 ml medications Current Medications Medications Dose Ordered Sig/Amna Route Start Time Stop Time Status Last Admin Dose Admin Ondansetron HCl 4 mg Q4HP PRN IV 02/07/25 22:45 02/15/25 08:57 4 MG Nitroglycerin 0.4 mg Q5MINP PRN SL 02/07/25 22:45 Metoprolol Tartrate 25 mg BID PO 02/08/25 10:00 02/16/25 10:35 25 MG Acetaminophen/ Hydrocodone Bitart 1 tab Q6HPRN PRN PO 02/08/25 13:00 02/15/25 16:50 1 TAB Piperacillin Sod/ Tazobactam Sod 100 ml @ 25 mls/hr Q8HR IV 02/09/25 22:00 02/16/25 14:13 25 MLS/HR Vancomycin HCl 0 ml @ 0 mls/hr UD IV 02/12/25 12:00 Enteral Nutritional Formula 240 ml BIDWM PO 02/12/25 18:00 02/16/25 08:00 240 ML Magnesium Oxide 800 mg DAILY PO 02/13/25 10:00 02/16/25 10:34 800 MG Amiodarone HCl 200 mg Q12HR PO 02/14/25 22:00 02/16/25 10:33 200 MG Temazepam 15 mg HSPRN PRN PO 02/14/25 15:30 02/15/25 21:26 15 MG Pantoprazole Sodium 40 mg BID IV 02/14/25 22:00 02/16/25 10:34 40 MG Sucralfate 1 gm BID@0600,2200 GT 02/14/25 22:00 02/16/25 05:28 1 GM Sodium Chloride 10 ml QSHIFT@10,22 IV 02/15/25 22:00 02/16/25 10:00 10 ML Vancomycin HCl 250 ml @ 250 mls/hr Q12H IV 02/16/25 01:00 02/16/25 13:05 250 MLS/HR Haloperidol Lactate 2.5 mg Q8HP PRN IV 02/16/25 09:15 02/16/25 10:34 2.5 MG Examination: GENERAL:Abnormal, LUNGS:Abnormal laboratory and microbiology Laboratory Tests 02/16/25 06:46 Test 02/16/25 06:46 Range/Units Serum Glucose 152 H 74-106 mg/dL Microbiology Date/Time Source Procedure Growth Status 02/14/25 10:45 Pleural Fluid Gram Stain - Final Resulted 02/14/25 10:45 Pleural Fluid Body Fluid Culture - Preliminary Resulted 02/07/25 21:17 Blood Blood Culture - Final NO GROWTH AFTER 5 DAYS OF INCUBATION. Complete Problem List/Assessment/Plan Problem List/Assessment/Plan 84-year-old female past medical history of congestive heart failure presents to the hospital with shortness of breath and dyspnea. She was found to have large pleural effusion. Nephrology consulted for hyponatremia. Hyponatremia Diastolic heart failure with RV failure Atrial fibrillation on Eliquis pleural effusion s/p thoracentesis, hemothorax anemia Preserved renal function CKD II Hyperkalemia -> now low K hyponatremia sepsis s/p chest tube still draining draw Na labs from picc only . Na 119 resume 3% until Na is 124 then stop. start oral Urea Pulmonology Cardiology Low-salt diet Rest of care as per primary medical team guarded prognosis Plan discussed with: Patient My Orders My Orders Orders - ROSEMARIE MCKEON MD Procedure Category Date Status Time Osmolality Urine LAB 02/15/25 Logged 17:47 Sodium Chl 3% PHA 02/15/25 In Process 18:15 Communication Order ORDERS 02/15/25 Transmitted 18:09 Communication Order ORDERS 02/15/25 Transmitted 21:36 Dietary Evaluation Review Comments: Continue current plan of care Expected Outcomes/Goals: To meet >75% estimated needs Lab values to improve Fu 3-5 days Total Time (mins): 33 CC Plasma Assessment Blood Product Administration S: [id number] ROSEMARIE MCKEON MD Feb 16, 2025 16:03
[2025-02-16 18:18] LABS: Chloride 104 mmol/L (98-107); Potassium 4.1 mmol/L (3.5-5.1); Sodium 143 mmol/L (136-145)
[2025-02-16 18:19] LABS: Anion Gap 11 (5-15); Carbon Dioxide 28 mmol/L (20-31)
[2025-02-16 18:24] LABS: BUN/Creatinine Ratio 17.8 (10.0-20.0); Glucose 98 mg/dL (74-106)
[2025-02-16 18:29] LABS: Blood Urea Nitrogen 8 mg/dL (9-23); Calcium 6.4 mg/dL (8.7-10.4)
--- NOTE | 2025-02-16 19:03 | DVHINCON2 ---
Date of service: Feb 16, 2025 Referring Physician Tommy Zapata Reason for Consultation Anemia and dark stool/melena History of Present Illness 84-year-old female past medical history of congestive heart failure presents to the hospital with shortness of breath and dyspnea. She was found to have large pleural effusion. RV failure. Pt also has hyponatremia. Prior to admission patient was on Eliquis for atrial fibrillation currently not on anticoagulant . She has underlying chronic kidney disease She had a drop in her hemoglobin hematocrit about two days ago and received 1 unit PRBC Again her hemoglobin is drifting down slightly and the patient was reported to have some dark stool for two days GI was consulted for melena and anemia Nephrology consulted for hyponatremia. Patient had a chest tube placed today for right pleural effusion Past Medical History PAST MEDICAL HISTORY: AFIB, High Lipids, HTN, Thyroid Past Surgical History Surgical History: Cholecystectomy, , Hysterectomy Family History: Cerebrovascular accident (CVA) G8 MOTHER Allergies: Coded Allergies: NO KNOWN ALLERGIES (Unverified , 09/14/18) Home Meds No Active Prescriptions or Reported Meds Current Medications Current Medications Medications (Trade) Dose Ordered Sig/Amna Route PRN Reason Start Time Stop Time Status Last Admin Sodium Chloride (Saline Lock Ns) 10 ml QSHIFT@10,22 IV 02/15/25 22:00 02/16/25 10:00 Vancomycin HCl 250 ml @ 250 mls/hr Q12H IV 02/16/25 01:00 02/16/25 13:05 Haloperidol Lactate (Haldol) 2.5 mg Q8HP PRN IV AGITATION 02/16/25 09:15 02/16/25 10:34 Urea (Ure-Na) 15 gm BID PO 02/16/25 22:00 02/18/25 21:59 Vital Signs Vital Signs Date Time Temp Pulse Resp B/P (MAP) Pulse Ox O2 Delivery O2 Flow Rate FiO2 02/16/25 17:00 97.8 83 19 132/70 (90) 99 97.8 02/16/25 07:50 Nasal Cannula* 4 36 Physical Exam General Appearance: Alert, Oriented X3, Cooperative, mild distress HEENT: Atraumatic, PERRLA Lungs: Bilateral crackles, right-sided chest tube with serous fluid Cardiovascular: irregularly irregular rhythm Abdomen: Normal bowel sounds, Soft, No tenderness Labs/Diagnostic Data Labs Test 02/16/25 17:44 02/16/25 06:46 02/15/25 18:10 02/15/25 11:55 Range/Units Sodium Level 143 # 136-145 mmol/L Potassium Level 4.1 3.5-5.1 mmol/L Chloride Level 104 # 98-107 mmol/L Carbon Dioxide Level 28 20-31 mmol/L Anion Gap 11 5-15 Blood Urea Nitrogen 8 L 9-23 mg/dL Creatinine 0.45 L 0.550-1.02 mg/dL Glomerular Filtration Rate Calc 93 >90 mL/min BUN/Creatinine Ratio 17.8 10.0-20.0 Serum Glucose 98 74-106 mg/dL Calcium Level 6.4 L 8.7-10.4 mg/dL White Blood Count 13.9 #H 4.4-10.8 10^3/uL Red Blood Count 2.41 L 4.0-5.20 10^6/uL Hemoglobin 7.6 L 12.2-16.2 g/dL Hematocrit 21.7 L 36.0-46.0 % Mean Corpuscular Volume 90.1 80.0-100.0 fL Mean Corpuscular Hemoglobin 31.4 28.0-32.0 pg Mean Corpuscular Hemoglobin Concent 34.8 32.0-36.0 g/dL Red Cell Distribution Width 13.4 11.8-14.3 % Platelet Count 367 140-450 10^3/uL Mean Platelet Volume 7.2 6.9-10.8 fL Neutrophils (%) (Auto) 87.3 H 37.0-80.0 % Lymphocytes (%) (Auto) 5.5 L 10.0-50.0 % Monocytes (%) (Auto) 5.2 0.0-12.0 % Eosinophils (%) (Auto) 1.9 0.0-7.0 % Basophils (%) (Auto) 0.1 0.0-2.0 % Neutrophils # (Auto) 12.1 H 1.6-8.6 10 ^3/uL Lymphocytes # (Auto) 0.8 0.4-5.4 10 ^3/uL Monocytes # (Auto) 0.7 0-1.3 10 ^3/uL Eosinophils # (Auto) 0.3 0-0.8 10 ^3/uL Basophils # (Auto) 0 0-0.2 10 ^3/uL Nucleated Red Blood Cells 0.1 % Total Bilirubin 0.3 0.2-1.0 mg/dL Aspartate Amino Transferase (AST) 27 13-40 U/L Alanine Aminotransferase (ALT) 33 7-40 U/L Alkaline Phosphatase 97 46-116 U/L Total Protein 5.0 L 5.7-8.2 g/dL Albumin 2.9 L 3.2-4.8 g/dL Urine Osmolality 322 mOsm/kg Serum Osmolality 243 L 278-298 mOsm/kg Vancomycin Level Trough 5.9 5-10 ug/mL Test 02/14/25 19:57 02/14/25 10:45 02/14/25 08:28 02/13/25 19:10 Range/Units Stool Occult Blood Positive Negative Stool Occult Blood Sample #3 Negative Body Fluid Source Pleural Body Fluid pH 9.0 Body Fluid WBC (Manual) 698 H 0-200 CUMM Body Fluid RBC (Manual) 3044 H 0-2000 CUMM Body Fluid Mononuclear Cells 5 % Body Fluid Polymorphonuclear Cells 95 H 0-25 % Prothrombin Time 11.3 9.3-11.8 sec Prothrombin Time INR 1.07 0.9-1.15 Activated Partial Thromboplast Time 31.0 24.5-34.5 SEC Body Fluid Glucose 18 . mg/dL Body Fluid Total Protein 3.6 . g/dL Body Fluid Lactate Dehydrogenase 5912 . IU/L Test 02/13/25 11:05 02/13/25 06:48 02/12/25 07:09 02/11/25 12:45 Range/Units Urine Sodium < 10 L 40-220 mmol/L Magnesium Level 1.6 1.6-2.6 mg/dL Uric Acid 4.0 3.1-7.8 mg/dL Serum Immunoglobulin G 926 773-3110 mg/dL Immunoglobulin A 213 64-422 mg/dL Immunoglobulin M 76 26-217 mg/dL Test 02/11/25 09:50 02/10/25 16:30 02/07/25 21:17 02/07/25 20:10 Range/Units Triglycerides Level 113 < 150 mg/dL Cholesterol Level 90 < 200 mg/dL LDL Cholesterol 66 < 100 mg/dL HDL Cholesterol 13 L 40-59 mg/dL Urine Color Colorless Yellow Urine Clarity Clear Clear Urine pH 5.5 5.0-9.0 Urine Specific [place] 1.009 1.001-1.035 Urine Protein Negative Negative Urine Ketones Negative Negative Urine Blood Negative Negative /uL Urine Nitrite Negative Negative Urine Bilirubin Negative Negative Urine Urobilinogen Normal Negative mg/dL Urine Leukocyte Esterase Negative Negative /uL Urine RBC 1 0 - 4 /hpf Urine Microscopic WBC < 1 0-5 /HPF Urine Squamous Epithelial Cells None seen <5 /hpf Urine Bacteria None seen None Seen /hpf Urine Glucose Normal Normal mg/dL Lactic Acid Level 1.2 0.4-2.0 mmol/L Troponin I High Sensitivity < 3 L </=34 ng/L Influenza Type A Antigen Negative Negative Influenza Type B Antigen Negative Negative SARS-CoV-2 Antigen (Rapid) Negative NEGATIVE Test 02/07/25 18:05 Range/Units D-Dimer, Quantitative 1.16 H 0.0-0.49 mg/L FEU B-Type Natriuretic Peptide 140.34 0-100 pg/mL Microbiology Date/Time Source Procedure Growth Status 02/14/25 10:45 Pleural Fluid Gram Stain - Final Resulted 02/14/25 10:45 Pleural Fluid Body Fluid Culture - Preliminary Resulted 02/07/25 21:17 Blood Blood Culture - Final NO GROWTH AFTER [address]. [address] Angiography Impression: 1. No evidence of a pulmonary embolism, aneurysm, or dissection. 2. Peripheral nodular opacities in the left lower lobe may reflect an infectious/inflammatory etiology. 3. Large right pleural effusion with right lower lobe compressive atelectasis. 4. Mildly prominent mediastinal nodes, favored reactive. 5. Small pericardial effusion. CXR IMPRESSION: 1. Stable appearing bilateral pleural effusions, [id number]-left, and bibasilar pulmonary airspace disease. 2. Cardiomegaly. 3. Lines and tubes in stable unchanged position. Problems(with codes): (1) Pneumonia (2) Leukocytosis (3) Pleural effusion, right (4) Melena (5) Anemia Plan/Recommendation Plan I would recommend conservative management at this time as the patient has severe hyponatremia and just had a chest tube placed She is not medically stable for endoscopic procedures Protonix 40 mg IV q.12 hours Carafate 1 g p.o. 4 times a day Monitor serial H&H Transfuse if hemoglobin drops below seven Maintained on full liquid diet in the meantime Plan discussed with: Other (Nurse) KAMRAN KNIGHT MD Feb 16, 2025 19:03
--- NOTE | 2025-02-16 20:57 | DVHPN2 ---
Progress Note - Dictate Date Seen: Feb 16, 2025 Medical Necessity Reason Pt with a Central, PICC or Fol: Yes The following are medically ne: PICC Line, Allan Catheter Reason for allan catheter: Strict I&O Subjective Patient was seen and evaluated in follow up. Patient is on 4 LPM NC. Patient started on a full liquid diet. WBC 13.9, HGB 7.6, HCT 21.7, NA 119. Chest x-ray shows stable appearing bilateral pleural effusions, [id number]-left, and bibasilar pulmonary airspace disease and cardiomegaly. Telemetry reviewed. vital signs Vital Sign Date Time Temp Pulse Resp B/P (MAP) Pulse Ox O2 Delivery O2 Flow Rate FiO2 02/16/25 17:00 97.8 83 19 132/70 (90) 99 97.8 02/16/25 07:50 Nasal Cannula* 4 36 Total Intake and Output 02/15/25 02/15/25 02/16/25 15:00 23:00 07:00 Intake Total 100 ml 1700 ml 840 ml Output Total 100 ml 1265 ml Balance 100 ml 1600 ml -425 ml medications Current Medications Medications Dose Ordered Sig/Amna Route Start Time Stop Time Status Last Admin Dose Admin Ondansetron HCl 4 mg Q4HP PRN IV 02/07/25 22:45 02/15/25 08:57 4 MG Nitroglycerin 0.4 mg Q5MINP PRN SL 02/07/25 22:45 Metoprolol Tartrate 25 mg BID PO 02/08/25 10:00 02/16/25 10:35 25 MG Acetaminophen/ Hydrocodone Bitart 1 tab Q6HPRN PRN PO 02/08/25 13:00 02/15/25 16:50 1 TAB Piperacillin Sod/ Tazobactam Sod 100 ml @ 25 mls/hr Q8HR IV 02/09/25 22:00 02/16/25 14:13 25 MLS/HR Vancomycin HCl 0 ml @ 0 mls/hr UD IV 02/12/25 12:00 Enteral Nutritional Formula 240 ml BIDWM PO 02/12/25 18:00 02/16/25 18:16 240 ML Magnesium Oxide 800 mg DAILY PO 02/13/25 10:00 02/16/25 10:34 800 MG Amiodarone HCl 200 mg Q12HR PO 02/14/25 22:00 02/16/25 10:33 200 MG Temazepam 15 mg HSPRN PRN PO 02/14/25 15:30 02/15/25 21:26 15 MG Pantoprazole Sodium 40 mg BID IV 02/14/25 22:00 02/16/25 10:34 40 MG Sucralfate 1 gm BID@0600,2200 GT 02/14/25 22:00 02/16/25 05:28 1 GM Sodium Chloride 10 ml QSHIFT@10,22 IV 02/15/25 22:00 02/16/25 10:00 10 ML Vancomycin HCl 250 ml @ 250 mls/hr Q12H IV 02/16/25 01:00 02/16/25 13:05 250 MLS/HR Haloperidol Lactate 2.5 mg Q8HP PRN IV 02/16/25 09:15 02/16/25 10:34 2.5 MG Urea 15 gm BID PO 02/16/25 22:00 02/18/25 21:59 objective GENERAL: Alert and oriented x 2. No acute distress. EYES: PERRL, EOMI. Anicteric. HENT: Moist mucous membranes. LUNGS: Clear to auscultation bilaterally. CARDIOVASCULAR: Regular rate and rhythm. ABDOMEN: Soft, nontender and nondistended. EXTREMITIES: No edema. NEUROLOGIC: No focal neurological deficits. SKIN: Warm, dry. laboratory and microbiology Laboratory Tests 02/16/25 17:44 02/16/25 06:46 Test 02/16/25 17:44 Range/Units Serum Glucose 98 74-106 mg/dL Problem List Chest pain. Pneumonia. Hyponatremia. AFib on Eliquis. Hypertension. Type 2 diabetes mellitus. Hypothyroidism. Hyperlipidemia. Assessment/Plan Continued all current supportive medical care. [place] for pain management. Amiodarone. Metoprolol. Nitro SL. GI prophylactics. IV antibiotics as ordered. Additional plan as per the hospital course. Dietary Evaluation Review Comments: Continue current plan of care Expected Outcomes/Goals: To meet >75% estimated needs Lab values to improve Fu 3-5 days Plan discussed with: Patient CC Plasma Assessment Blood Product Administration S: [id number] ABBEY VARELA MD Feb 16, 2025 20:57
[2025-02-16] MEDS: UREA 15gm PO Powder PKG PO SCH (22:00)
[2025-02-17] VITALS (10 sets, daily range): BP systolic 91–160; BP diastolic 43–92; PULSE 7–92; RESP 18–20; TEMP 97.5–98.6; O2SAT 97–100
--- NOTE | 2025-02-17 06:46 | DVH ---
CHEST RADIOGRAPH Indication: pna Technique: Single frontal view of the chest was obtained Comparison: XY CHEST XRAY 1 VIEW on DOS: 02/16/25 FINDINGS: Lines and Tubes: Right PICC terminates in the right atrium. There is a right pigtail catheter. Lungs: Right upper and lower lung zone airspace disease. Pleura: Bilateral pleural effusions. No pneumothorax. Cardiomediastinal contours: Stable cardiomegaly. Bones: No acute osseous abnormality. IMPRESSION: 1. Right upper and lower lung zone airspace disease and bilateral pleural effusions. 2. Stable cardiomegaly.
[2025-02-17 08:06] LABS: Hematocrit 19.6 % (36.0-46.0); Mean Corpuscular Hemoglobin 31.5 pg (28.0-32.0); Mean Corpuscular Volume 90.3 fL (80.0-100.0); Nucleated Red Blood Cells % 0.1 %
[2025-02-17 08:08] LABS: Hemoglobin 6.8 g/dL (12.2-16.2)
[2025-02-17 08:24] LABS: Alanine Aminotransferase 31 U/L (7-40); Alkaline Phosphatase 90 U/L (46-116); Anion Gap 4 (5-15); BUN/Creatinine Ratio 9.9 (10.0-20.0); Blood Urea Nitrogen 9 mg/dL (9-23); Glucose 105 mg/dL (74-106); Potassium 4.2 mmol/L (3.5-5.1)
[2025-02-17 08:27] LABS: Albumin 2.7 g/dL (3.2-4.8); Bilirubin, Total 0.3 mg/dL (0.2-1.0); Calcium 8.1 mg/dL (8.7-10.4); Carbon Dioxide 33 mmol/L (20-31); Chloride 86 mmol/L (98-107); Sodium 123 mmol/L (136-145); Total Protein 4.6 g/dL (5.7-8.2)
--- NOTE | 2025-02-17 11:05 | DVHPN2 ---
Progress Note Date Seen: Feb 17, 2025 Medical Necessity Reason Pt with a Central, PICC or Fol: Yes The following are medically ne: PICC Line, Allan Catheter Reason for allan catheter: Strict I&O Subjective Patient reports: No new complaints Review of Systems: HEENT:Normal, CVS:Normal, RESPIRATORY:Normal, GI:Normal, :Normal, MSK:Normal, NEURO:Normal Objective vital signs Vital Sign Date Time Temp Pulse Resp B/P (MAP) Pulse Ox O2 Delivery O2 Flow Rate FiO2 02/17/25 09:48 89 109/67 02/17/25 09:00 97.5 19 97 97.5 02/17/25 08:00 Nasal Cannula* 4 36 Total Intake and Output 02/16/25 02/16/25 02/17/25 15:00 23:00 07:00 Intake Total 750 ml 1030 ml 930 ml Output Total 965 ml 1514 ml Balance 750 ml 65 ml -584 ml medications Current Medications Medications Dose Ordered Sig/Amna Route Start Time Stop Time Status Last Admin Dose Admin Ondansetron HCl 4 mg Q4HP PRN IV 02/07/25 22:45 02/15/25 08:57 4 MG Nitroglycerin 0.4 mg Q5MINP PRN SL 02/07/25 22:45 Metoprolol Tartrate 25 mg BID PO 02/08/25 10:00 02/17/25 09:48 25 MG Acetaminophen/ Hydrocodone Bitart 1 tab Q6HPRN PRN PO 02/08/25 13:00 02/17/25 05:51 1 TAB Piperacillin Sod/ Tazobactam Sod 100 ml @ 25 mls/hr Q8HR IV 02/09/25 22:00 02/17/25 05:51 25 MLS/HR Vancomycin HCl 0 ml @ 0 mls/hr UD IV 02/12/25 12:00 Enteral Nutritional Formula 240 ml BIDWM PO 02/12/25 18:00 02/17/25 08:00 240 ML Magnesium Oxide 800 mg DAILY PO 02/13/25 10:00 02/17/25 09:48 800 MG Amiodarone HCl 200 mg Q12HR PO 02/14/25 22:00 02/17/25 09:48 200 MG Temazepam 15 mg HSPRN PRN PO 02/14/25 15:30 02/16/25 23:20 15 MG Pantoprazole Sodium 40 mg BID IV 02/14/25 22:00 02/17/25 09:48 40 MG Sucralfate 1 gm BID@0600,2200 GT 02/14/25 22:00 02/17/25 05:50 1 GM Sodium Chloride 10 ml QSHIFT@10,22 IV 02/15/25 22:00 02/17/25 09:48 10 ML Vancomycin HCl 250 ml @ 250 mls/hr Q12H IV 02/16/25 01:00 02/17/25 02:13 250 MLS/HR Haloperidol Lactate 2.5 mg Q8HP PRN IV 02/16/25 09:15 02/16/25 10:34 2.5 MG Sodium Chloride 1 gm TID PO 02/17/25 14:00 Urea 15 gm BID PO 02/17/25 22:00 Examination: GENERAL:Normal, HEENT:Normal, NECK:Normal, LUNGS:Normal, LUNGS:Abnormal (right chest tube), CVS:Normal, ABDOMEN:Normal, MSK:Normal, SKIN:Normal, NEURO:Normal, :Normal laboratory and microbiology Laboratory Tests 02/17/25 07:36 Test 02/17/25 07:36 Range/Units Serum Glucose 105 74-106 mg/dL Microbiology Date/Time Source Procedure Growth Status 02/14/25 10:45 Pleural Fluid Gram Stain - Final Resulted 02/14/25 10:45 Pleural Fluid Body Fluid Culture - Preliminary Resulted 02/07/25 21:17 Blood Blood Culture - Final NO GROWTH AFTER 5 DAYS OF INCUBATION. Complete Problem List/Assessment/Plan Problem List/Assessment/Plan #1 acute resp failure: cont oxygen #2 acute diastolic heart failure: dc lasix iv #3 a fib with rvr: amiodarone , dc eliquis #4 hyponatremia: per nephro #5 right effusion s/p thoracentesis #6 right pneumonia/sepsis with loculated effusion/empyema: chest tube placement, add vanc, iv antibiotics-gram positive/neg/ mrsa #7 htn #8 transaminitis #9 anemia with gi bleed: iv ppi, carafate, transfuse advance care planning- full code- time spent 19 mins long dw sons- reviewed labs and plan of care Plan discussed with: Patient, Son My Orders My Orders Orders - KEVON APPLE MD Procedure Category Date Status Time Creatinine LAB 02/18/25 Verified 04:00 Dietary Evaluation Review Comments: Continue current plan of care Expected Outcomes/Goals: To meet >75% estimated needs Lab values to improve Fu 3-5 days Date of Service: Feb 17, 2025 Billing Provider: KEVON APPLE MD Common Visit Codes: 39875-[id number] INP/OBS CARE(HIGH) Secondary Visit Codes: 59939-[id number] CARE PLAN 30 MINUTES CC Plasma Assessment Blood Product Administration S: [id number] KEVON APPLE MD Feb 17, 2025 11:05
--- NOTE | 2025-02-17 12:29 | DVHPN2 ---
Progress Note - Dictate Date Seen: Feb 17, 2025 Medical Necessity Reason Pt with a Central, PICC or Fol: Yes The following are medically ne: PICC Line, Allan Catheter Reason for allan catheter: Strict I&O vital signs Vital Sign Date Time Temp Pulse Resp B/P (MAP) Pulse Ox O2 Delivery O2 Flow Rate FiO2 02/17/25 12:00 98.6 71 18 94/48 98.6 02/17/25 09:00 97 02/17/25 08:00 Nasal Cannula* 4 36 Total Intake and Output 02/16/25 02/16/25 02/17/25 15:00 23:00 07:00 Intake Total 750 ml 1030 ml 930 ml Output Total 965 ml 1514 ml Balance 750 ml 65 ml -584 ml medications Current Medications Medications Dose Ordered Sig/Amna Route Start Time Stop Time Status Last Admin Dose Admin Ondansetron HCl 4 mg Q4HP PRN IV 02/07/25 22:45 02/15/25 08:57 4 MG Nitroglycerin 0.4 mg Q5MINP PRN SL 02/07/25 22:45 Acetaminophen/ Hydrocodone Bitart 1 tab Q6HPRN PRN PO 02/08/25 13:00 02/17/25 05:51 1 TAB Piperacillin Sod/ Tazobactam Sod 100 ml @ 25 mls/hr Q8HR IV 02/09/25 22:00 02/17/25 05:51 25 MLS/HR Vancomycin HCl 0 ml @ 0 mls/hr UD IV 02/12/25 12:00 Enteral Nutritional Formula 240 ml BIDWM PO 02/12/25 18:00 02/17/25 08:00 240 ML Magnesium Oxide 800 mg DAILY PO 02/13/25 10:00 02/17/25 09:48 800 MG Amiodarone HCl 200 mg Q12HR PO 02/14/25 22:00 02/17/25 09:48 200 MG Temazepam 15 mg HSPRN PRN PO 02/14/25 15:30 02/16/25 23:20 15 MG Pantoprazole Sodium 40 mg BID IV 02/14/25 22:00 02/17/25 09:48 40 MG Sucralfate 1 gm BID@0600,2200 GT 02/14/25 22:00 02/17/25 05:50 1 GM Sodium Chloride 10 ml QSHIFT@10,22 IV 02/15/25 22:00 02/17/25 09:48 10 ML Vancomycin HCl 250 ml @ 250 mls/hr Q12H IV 02/16/25 01:00 02/17/25 02:13 250 MLS/HR Haloperidol Lactate 2.5 mg Q8HP PRN IV 02/16/25 09:15 02/16/25 10:34 2.5 MG Sodium Chloride 1 gm TID PO 02/17/25 14:00 Urea 15 gm BID PO 02/17/25 22:00 laboratory and microbiology Laboratory Tests 02/17/25 07:36 Test 02/17/25 07:36 Range/Units Serum Glucose 105 74-106 mg/dL Assessment/Plan Impression Acute hypoxemic respiratory failure Loculated pleural effusions Empyema CHF Patient seen and examined Events Low oxygen requirements On 2 liters nasal cannula confused right chest tube considerable output Labs and imaging reviewed Management Supplemental oxygen Titrate to maintain sats 90% or above Incentive spirometry Continue antibiotics F/u cultures Bronchodilators Monitor renal function Monitor electrolytes Supplement as needed Monitor blood count Chest tube to continuous negative suction DVT prophylaxis Dietary Evaluation Review Comments: Continue current plan of care Expected Outcomes/Goals: To meet >75% estimated needs Lab values to improve Fu 3-5 days Plan discussed with: Patient CC Plasma Assessment Blood Product Administration S: [id number] BEE ARREDONDO MD Feb 17, 2025 12:29
[2025-02-17] MEDS: SODIUM CHLORIDE 1 GM TAB PO ONE (14:57)
[2025-02-17] MEDS: SODIUM CHLORIDE 1 GM TAB PO SCH (14:57)
--- NOTE | 2025-02-17 18:12 | DVHPN2 ---
Progress Note Date Seen: Feb 17, 2025 Resident Creating Document: KUSH MONAHAN RESIDENT Has the PT tested + for MRSA If YES, has PT been informed?: No Medical Necessity Reason Pt with a Central, PICC or Fol: Yes The following are medically ne: PICC Line, Allan Catheter Reason for allan catheter: Strict I&O Subjective Review of Systems 84-year-old female past medical history of congestive heart failure presents to the hospital with shortness of breath and dyspnea. She was found to have large pleural effusion. RV failure. Pt also has hyponatremia. Prior to admission patient was on Eliquis for atrial fibrillation currently not on anticoagulant . She has underlying chronic kidney disease. Today's progress and findings The patient's hemoglobin dropped to 6.8 and the patient underwent a packed RBC transfusion. Initially planned to do an EGD but patient is too fragile and not stable for an EGD. The patient complains of no abdominal pain no nausea vomiting and currently on full liquid diet and the family is hospice care for long-term goals. The patient had a bowel movement today it revealed dark stools. Patient had a chest tube placed today for right pleural effusion The patient continues to have acute resp failure: cont oxygen a fib with rvr: amiodarone , dc eliquis right effusion s/p thoracentesis right pneumonia/sepsis with loculated effusion/empyema: chest tube placement, add vanc, iv antibiotics-gram positive/neg/ mrsa transaminitis Objective vital signs Vital Sign Date Time Temp Pulse Resp B/P (MAP) Pulse Ox O2 Delivery O2 Flow Rate FiO2 02/17/25 17:00 97.8 76 19 120/92 (101) 98 97.8 02/17/25 08:00 Nasal Cannula* 4 36 Total Intake and Output 02/16/25 02/16/25 02/17/25 15:00 23:00 07:00 Intake Total 750 ml 1030 ml 930 ml Output Total 965 ml 1514 ml Balance 750 ml 65 ml -584 ml medications Current Medications Medications Dose Ordered Sig/Amna Route Start Time Stop Time Status Last Admin Dose Admin Ondansetron HCl 4 mg Q4HP PRN IV 02/07/25 22:45 02/15/25 08:57 4 MG Nitroglycerin 0.4 mg Q5MINP PRN SL 02/07/25 22:45 Acetaminophen/ Hydrocodone Bitart 1 tab Q6HPRN PRN PO 02/08/25 13:00 02/17/25 05:51 1 TAB Piperacillin Sod/ Tazobactam Sod 100 ml @ 25 mls/hr Q8HR IV 02/09/25 22:00 02/17/25 14:57 25 MLS/HR Vancomycin HCl 0 ml @ 0 mls/hr UD IV 02/12/25 12:00 Enteral Nutritional Formula 240 ml BIDWM PO 02/12/25 18:00 02/17/25 18:05 240 ML Magnesium Oxide 800 mg DAILY PO 02/13/25 10:00 02/17/25 09:48 800 MG Amiodarone HCl 200 mg Q12HR PO 02/14/25 22:00 02/17/25 09:48 200 MG Temazepam 15 mg HSPRN PRN PO 02/14/25 15:30 02/16/25 23:20 15 MG Pantoprazole Sodium 40 mg BID IV 02/14/25 22:00 02/17/25 09:48 40 MG Sucralfate 1 gm BID@0600,2200 GT 02/14/25 22:00 02/17/25 05:50 1 GM Sodium Chloride 10 ml QSHIFT@10,22 IV 02/15/25 22:00 02/17/25 09:48 10 ML Vancomycin HCl 250 ml @ 250 mls/hr Q12H IV 02/16/25 01:00 02/17/25 02:13 250 MLS/HR Haloperidol Lactate 2.5 mg Q8HP PRN IV 02/16/25 09:15 02/16/25 10:34 2.5 MG Sodium Chloride 1 gm TID PO 02/17/25 14:00 02/17/25 14:57 1 GM Urea 15 gm BID PO 02/17/25 22:00 laboratory and microbiology Laboratory Tests 02/17/25 07:36 Test 02/17/25 07:36 Range/Units Serum Glucose 105 74-106 mg/dL Microbiology Date/Time Source Procedure Growth Status 02/14/25 10:45 Pleural Fluid Gram Stain - Final Resulted 02/14/25 10:45 Pleural Fluid Body Fluid Culture - Preliminary Resulted 02/07/25 21:17 Blood Blood Culture - Final NO GROWTH AFTER 5 DAYS OF INCUBATION. Complete Problem List/Assessment/Plan Problem List/Assessment/Plan Assessment finding (1) Pneumonia (2) Leukocytosis (3) Pleural effusion, right (4) Melena (5) Anemia Plan/Recommendation Plan Recommending conservative management at this time as the patient has severe hyponatremia and just had a chest tube placed She is not medically stable for endoscopic procedures Protonix 40 mg IV q.12 hours Carafate 1 g p.o. 4 times a day Monitor serial H&H Transfuse if hemoglobin drops below 7 Maintained on full liquid diet in the meantime Discussed goals of cares with the patient's son and he agreed upon Plan discussed with: Patient, Son Dietary Evaluation Review Comments: Continue current plan of care Expected Outcomes/Goals: To meet >75% estimated needs Lab values to improve Fu 3-5 days CC Plasma Assessment Blood Product Administration S: [id number] KUSH MONAHAN RESIDENT Feb 17, 2025 18:12
--- NOTE | 2025-02-17 20:40 | DVHPN2 ---
Progress Note Date Seen: Feb 17, 2025 Has the PT tested + for MRSA If YES, has PT been informed?: No Medical Necessity Reason Pt with a Central, PICC or Fol: Yes The following are medically ne: PICC Line, Allan Catheter Reason for allan catheter: Strict I&O Subjective Patient reports: No new complaints Review of Systems: MSK:Abnormal Objective vital signs Vital Sign Date Time Temp Pulse Resp B/P (MAP) Pulse Ox O2 Delivery O2 Flow Rate FiO2 02/17/25 17:00 97.8 76 19 120/92 (101) 98 97.8 02/17/25 08:00 Nasal Cannula* 4 36 Total Intake and Output 02/16/25 02/16/25 02/17/25 15:00 23:00 07:00 Intake Total 750 ml 1030 ml 930 ml Output Total 965 ml 1514 ml Balance 750 ml 65 ml -584 ml medications Current Medications Medications Dose Ordered Sig/Amna Route Start Time Stop Time Status Last Admin Dose Admin Ondansetron HCl 4 mg Q4HP PRN IV 02/07/25 22:45 02/15/25 08:57 4 MG Nitroglycerin 0.4 mg Q5MINP PRN SL 02/07/25 22:45 Acetaminophen/ Hydrocodone Bitart 1 tab Q6HPRN PRN PO 02/08/25 13:00 02/17/25 05:51 1 TAB Piperacillin Sod/ Tazobactam Sod 100 ml @ 25 mls/hr Q8HR IV 02/09/25 22:00 02/17/25 14:57 25 MLS/HR Vancomycin HCl 0 ml @ 0 mls/hr UD IV 02/12/25 12:00 Enteral Nutritional Formula 240 ml BIDWM PO 02/12/25 18:00 02/17/25 18:05 240 ML Magnesium Oxide 800 mg DAILY PO 02/13/25 10:00 02/17/25 09:48 800 MG Amiodarone HCl 200 mg Q12HR PO 02/14/25 22:00 02/17/25 09:48 200 MG Temazepam 15 mg HSPRN PRN PO 02/14/25 15:30 02/16/25 23:20 15 MG Pantoprazole Sodium 40 mg BID IV 02/14/25 22:00 02/17/25 09:48 40 MG Sucralfate 1 gm BID@0600,2200 GT 02/14/25 22:00 02/17/25 05:50 1 GM Sodium Chloride 10 ml QSHIFT@10,22 IV 02/15/25 22:00 02/17/25 09:48 10 ML Haloperidol Lactate 2.5 mg Q8HP PRN IV 02/16/25 09:15 02/16/25 10:34 2.5 MG Sodium Chloride 1 gm TID PO 02/17/25 14:00 02/17/25 14:57 1 GM Urea 15 gm BID PO 02/17/25 22:00 Examination: GENERAL:Abnormal, LUNGS:Abnormal (chest tube), ABDOMEN:Normal, MSK:Normal, NEURO:Normal laboratory and microbiology Laboratory Tests 02/17/25 07:36 Test 02/17/25 07:36 Range/Units Serum Glucose 105 74-106 mg/dL Microbiology Date/Time Source Procedure Growth Status 02/14/25 10:45 Pleural Fluid Gram Stain - Final Resulted 02/14/25 10:45 Pleural Fluid Body Fluid Culture - Preliminary Resulted 02/07/25 21:17 Blood Blood Culture - Final NO GROWTH AFTER 5 DAYS OF INCUBATION. Complete Problem List/Assessment/Plan Problem List/Assessment/Plan Hyponatremia Diastolic heart failure with RV failure Atrial fibrillation on Eliquis Preserved renal function CKD II Hyperkalemia -> now low K Metabolic alkalosis hypomagnesemia Recommendations salt tabs as ordered trial of Jarrett will f/u Plan discussed with: Patient, Son My Orders My Orders Orders - MARCELLA CORREA MD Procedure Category Date Status Time Sodium Chloride Tab PHA 02/17/25 In Process 14:00 Urea (Ure-Na) PHA 02/17/25 In Process 22:00 Dietary Evaluation Review Comments: Continue current plan of care Expected Outcomes/Goals: To meet >75% estimated needs Lab values to improve Fu 3-5 days CC Plasma Assessment Blood Product Administration S: [id number] MARCELLA CORREA MD Feb 17, 2025 20:40
[2025-02-17] MEDS: NITROGLYCERIN 0.4 MG SL TAB SL PRN (21:07)
[2025-02-17] MEDS: UREA 15gm PO Powder PKG PO SCH (21:16)
--- NOTE | 2025-02-17 23:26 | DVHPN2 ---
Progress Note - Dictate Date Seen: Feb 17, 2025 Has the PT tested + for MRSA If YES, has PT been informed?: No Medical Necessity Reason Pt with a Central, PICC or Fol: Yes The following are medically ne: PICC Line, Allan Catheter Reason for allan catheter: Strict I&O Subjective Patient was seen and evaluated in follow up. Patient is on 4 LPM NC. Patient had drop in H&H, receiving PRBC transfusion. Patient had BM with dark stools. The patient was initially planned for EGD but patient is too fragile and not stable for procedure. Patient had a chest tube placed today for right pleural effusion. NA 123, CO2 33, WBC 11.5. Telemetry reviewed. vital signs Vital Sign Date Time Temp Pulse Resp B/P (MAP) Pulse Ox O2 Delivery O2 Flow Rate FiO2 02/17/25 21:07 141/70 02/17/25 20:50 98.6 92 18 99 98.6 02/17/25 08:00 Nasal Cannula* 4 36 Total Intake and Output 02/16/25 02/16/25 02/17/25 15:00 23:00 07:00 Intake Total 750 ml 1030 ml 930 ml Output Total 965 ml 1514 ml Balance 750 ml 65 ml -584 ml medications Current Medications Medications Dose Ordered Sig/Amna Route Start Time Stop Time Status Last Admin Dose Admin Ondansetron HCl 4 mg Q4HP PRN IV 02/07/25 22:45 02/15/25 08:57 4 MG Nitroglycerin 0.4 mg Q5MINP PRN SL 02/07/25 22:45 02/17/25 21:07 0.4 MG Acetaminophen/ Hydrocodone Bitart 1 tab Q6HPRN PRN PO 02/08/25 13:00 02/17/25 05:51 1 TAB Piperacillin Sod/ Tazobactam Sod 100 ml @ 25 mls/hr Q8HR IV 02/09/25 22:00 02/17/25 21:16 25 MLS/HR Vancomycin HCl 0 ml @ 0 mls/hr UD IV 02/12/25 12:00 Enteral Nutritional Formula 240 ml BIDWM PO 02/12/25 18:00 02/17/25 18:05 240 ML Magnesium Oxide 800 mg DAILY PO 02/13/25 10:00 02/17/25 09:48 800 MG Amiodarone HCl 200 mg Q12HR PO 02/14/25 22:00 02/17/25 21:14 200 MG Temazepam 15 mg HSPRN PRN PO 02/14/25 15:30 02/16/25 23:20 15 MG Pantoprazole Sodium 40 mg BID IV 02/14/25 22:00 02/17/25 21:14 40 MG Sucralfate 1 gm BID@0600,2200 GT 02/14/25 22:00 02/17/25 21:15 1 GM Sodium Chloride 10 ml QSHIFT@10,22 IV 02/15/25 22:00 02/17/25 21:14 10 ML Haloperidol Lactate 2.5 mg Q8HP PRN IV 02/16/25 09:15 02/16/25 10:34 2.5 MG Sodium Chloride 1 gm TID PO 02/17/25 14:00 02/17/25 21:15 1 GM Urea 15 gm BID PO 02/17/25 22:00 02/17/25 21:16 15 GM objective GENERAL: Alert and oriented x 2. No acute distress. EYES: PERRL, EOMI. Anicteric. HENT: Moist mucous membranes. LUNGS: Clear to auscultation bilaterally. CARDIOVASCULAR: Regular rate and rhythm. ABDOMEN: Soft, nontender and nondistended. EXTREMITIES: No edema. NEUROLOGIC: No focal neurological deficits. SKIN: Warm, dry. laboratory and microbiology Laboratory Tests 02/17/25 07:36 Test 02/17/25 07:36 Range/Units Serum Glucose 105 74-106 mg/dL Problem List Chest pain. Pneumonia. Hyponatremia. AFib on Eliquis. Hypertension. Type 2 diabetes mellitus. Hypothyroidism. Hyperlipidemia. Assessment/Plan Continued all current supportive medical care. [place] for pain management. Amiodarone. Metoprolol. Nitro SL. GI prophylactics. IV antibiotics as ordered. Additional plan as per the hospital course. Dietary Evaluation Review Comments: Continue current plan of care Expected Outcomes/Goals: To meet >75% estimated needs Lab values to improve Fu 3-5 days Plan discussed with: Patient CC Plasma Assessment Blood Product Administration S: [id number] ABBEY VARELA MD Feb 17, 2025 23:26
[2025-02-18] VITALS (11 sets, daily range): BP systolic 104–154; BP diastolic 50–92; PULSE 80–92; RESP 16–22; TEMP 97.5–98; O2SAT 90–99
--- NOTE | 2025-02-18 07:38 | DVH ---
CHEST RADIOGRAPH Indication: right effusion Technique: Single frontal view of the chest was obtained Comparison: XY CHEST XRAY 1 VIEW on DOS: 02/17/25 FINDINGS: Lines and Tubes: There is a right PICC with its tip terminating in the superior vena cava. Right pigt ail catheter projecting over the right lung base is unchanged. Lungs: Confluent bilateral airspace disease. Pleura: Bilateral pleural effusions. No pneumothorax. Cardiomediastinal contours: Stable Cardiovascular silhouette. Bones: No acute osseous abnormality. IMPRESSION: 1. Bilateral airspace disease which may reflect multifocal pneumonia. 2. Bilateral pleural effusions similar prior study.
[2025-02-18 09:34] LABS: Hematocrit 29.3 % (36.0-46.0); Hemoglobin 9.9 g/dL (12.2-16.2); Mean Corpuscular Hemoglobin 30.1 pg (28.0-32.0); Mean Corpuscular Volume 88.8 fL (80.0-100.0); Nucleated Red Blood Cells % 0.0 %
[2025-02-18 09:44] LABS: Alanine Aminotransferase 32 U/L (7-40); Alkaline Phosphatase 97 U/L (46-116); Anion Gap 7 (5-15); BUN/Creatinine Ratio 22.7 (10.0-20.0); Blood Urea Nitrogen 22 mg/dL (9-23); Carbon Dioxide 31 mmol/L (20-31); Magnesium 1.9 mg/dL (1.6-2.6); Potassium 4.2 mmol/L (3.5-5.1)
[2025-02-18 09:45] LABS: Bilirubin, Total 0.5 mg/dL (0.2-1.0)
[2025-02-18 09:51] LABS: Albumin 2.5 g/dL (3.2-4.8); Calcium 7.7 mg/dL (8.7-10.4); Chloride 97 mmol/L (98-107); Glucose 122 mg/dL (74-106); Sodium 135 mmol/L (136-145); Total Protein 4.4 g/dL (5.7-8.2)
--- NOTE | 2025-02-18 10:55 | DVHPN2 ---
Progress Note Date Seen: Feb 18, 2025 Has the PT tested + for MRSA If YES, has PT been informed?: No Medical Necessity Reason Pt with a Central, PICC or Fol: Yes The following are medically ne: PICC Line, Allan Catheter Reason for allan catheter: Strict I&O Subjective Patient reports: No new complaints Review of Systems: HEENT:Normal, CVS:Normal, RESPIRATORY:Normal, GI:Normal, :Normal, MSK:Normal, NEURO:Normal Objective vital signs Vital Sign Date Time Temp Pulse Resp B/P (MAP) Pulse Ox O2 Delivery O2 Flow Rate FiO2 02/18/25 09:00 98.0 89 19 116/61 (79) 99 98.0 02/18/25 08:00 Nasal Cannula* 4 36 Total Intake and Output 02/17/25 02/17/25 02/18/25 15:00 23:00 07:00 Intake Total 0 ml 800 ml 800 ml Output Total 1250 ml Balance 0 ml -450 ml 800 ml medications Current Medications Medications Dose Ordered Sig/Amna Route Start Time Stop Time Status Last Admin Dose Admin Ondansetron HCl 4 mg Q4HP PRN IV 02/07/25 22:45 02/15/25 08:57 4 MG Nitroglycerin 0.4 mg Q5MINP PRN SL 02/07/25 22:45 02/17/25 21:07 0.4 MG Acetaminophen/ Hydrocodone Bitart 1 tab Q6HPRN PRN PO 02/08/25 13:00 02/18/25 06:21 1 TAB Piperacillin Sod/ Tazobactam Sod 100 ml @ 25 mls/hr Q8HR IV 02/09/25 22:00 02/18/25 05:51 25 MLS/HR Vancomycin HCl 0 ml @ 0 mls/hr UD IV 02/12/25 12:00 Enteral Nutritional Formula 240 ml BIDWM PO 02/12/25 18:00 02/17/25 18:05 240 ML Magnesium Oxide 800 mg DAILY PO 02/13/25 10:00 02/18/25 09:58 800 MG Amiodarone HCl 200 mg Q12HR PO 02/14/25 22:00 02/18/25 09:58 200 MG Temazepam 15 mg HSPRN PRN PO 02/14/25 15:30 02/17/25 23:28 15 MG Pantoprazole Sodium 40 mg BID IV 02/14/25 22:00 02/18/25 09:57 40 MG Sucralfate 1 gm BID@0600,2200 GT 02/14/25 22:00 02/18/25 05:51 1 GM Sodium Chloride 10 ml QSHIFT@10,22 IV 02/15/25 22:00 02/18/25 10:00 10 ML Haloperidol Lactate 2.5 mg Q8HP PRN IV 02/16/25 09:15 02/16/25 10:34 2.5 MG Sodium Chloride 1 gm TID PO 02/17/25 14:00 02/18/25 05:51 1 GM Urea 15 gm BID PO 02/17/25 22:00 02/17/25 21:16 15 GM Examination: GENERAL:Normal, HEENT:Normal, NECK:Normal, LUNGS:Normal, LUNGS:Abnormal (oxygen, decreased right side, chest tube), CVS:Normal, ABDOMEN:Normal, MSK:Normal, SKIN:Normal, NEURO:Normal, :Normal laboratory and microbiology Laboratory Tests 02/18/25 09:08 Test 02/18/25 09:08 Range/Units Serum Glucose 122 H 74-106 mg/dL Microbiology Date/Time Source Procedure Growth Status 02/14/25 10:45 Pleural Fluid Gram Stain - Final Resulted 02/14/25 10:45 Pleural Fluid Body Fluid Culture - Preliminary Resulted 02/07/25 21:17 Blood Blood Culture - Final NO GROWTH AFTER 5 DAYS OF INCUBATION. Complete Problem List/Assessment/Plan Problem List/Assessment/Plan #1 acute resp failure: cont oxygen #2 acute diastolic heart failure: dc lasix iv #3 a fib with rvr: amiodarone , dc eliquis #4 hyponatremia: per nephro #5 right effusion s/p thoracentesis #6 right pneumonia/sepsis with loculated effusion/empyema: chest tube placement, add vanc, iv antibiotics-gram positive/neg/ mrsa #7 htn #8 transaminitis #9 anemia with gi bleed: iv ppi, carafate, transfuse advance care planning- dnr- time spent 19 mins long dw sons/daughter wish dnr and hospice care Plan discussed with: Patient, Daughter, Son My Orders My Orders Orders - KEVON APPLE MD Procedure Category Date Status Time Magnesium LAB 02/18/25 Logged 05:00 Chest Portable XY 02/18/25 Resulted 06:00 DNR PEDRITO 02/17/25 In Process 16:18 Dietary Evaluation Review Comments: Continue current plan of care Expected Outcomes/Goals: To meet >75% estimated needs Lab values to improve Fu 3-5 days Date of Service: Feb 18, 2025 Billing Provider: KEVON APPLE MD Common Visit Codes: [id number] INP/OBS CARE(HIGH) Secondary Visit Codes: [id number] CARE PLAN 30 MINUTES CC Plasma Assessment Blood Product Administration S: [id number] KEVON APPLE MD Feb 18, 2025 10:55
[2025-02-18 13:07] LABS: Albumin 1.9 g/dL (2.9-4.4); Alpha-1-Globulin 0.5 g/dL (0.0-0.4); Alpha-2-Globulin 0.7 g/dL (0.4-1.0); Gamma Globulin 0.7 g/dL (0.4-1.8)
[2025-02-18] MEDS: VANCOMYCIN 1GM/250ML KIT 250 ML IV ONE (16:18)
--- NOTE | 2025-02-18 17:59 | DVHPN2 ---
Progress Note - Dictate Date Seen: Feb 18, 2025 Has the PT tested + for MRSA If YES, has PT been informed?: No Medical Necessity Reason Pt with a Central, PICC or Fol: Yes The following are medically ne: PICC Line, Allan Catheter Reason for allan catheter: Strict I&O vital signs Vital Sign Date Time Temp Pulse Resp B/P (MAP) Pulse Ox O2 Delivery O2 Flow Rate FiO2 02/18/25 17:00 97.5 88 17 104/70 (81) 95 97.5 02/18/25 08:00 Nasal Cannula* 4 36 Total Intake and Output 02/17/25 02/17/25 02/18/25 15:00 23:00 07:00 Intake Total 0 ml 800 ml 800 ml Output Total 1250 ml Balance 0 ml -450 ml 800 ml medications Current Medications Medications Dose Ordered Sig/Amna Route Start Time Stop Time Status Last Admin Dose Admin Ondansetron HCl 4 mg Q4HP PRN IV 02/07/25 22:45 02/15/25 08:57 4 MG Nitroglycerin 0.4 mg Q5MINP PRN SL 02/07/25 22:45 02/17/25 21:07 0.4 MG Acetaminophen/ Hydrocodone Bitart 1 tab Q6HPRN PRN PO 02/08/25 13:00 02/18/25 06:21 1 TAB Piperacillin Sod/ Tazobactam Sod 100 ml @ 25 mls/hr Q8HR IV 02/09/25 22:00 02/18/25 05:51 25 MLS/HR Vancomycin HCl 0 ml @ 0 mls/hr UD IV 02/12/25 12:00 Enteral Nutritional Formula 240 ml BIDWM PO 02/12/25 18:00 02/18/25 08:00 240 ML Magnesium Oxide 800 mg DAILY PO 02/13/25 10:00 02/18/25 09:58 800 MG Amiodarone HCl 200 mg Q12HR PO 02/14/25 22:00 02/18/25 09:58 200 MG Temazepam 15 mg HSPRN PRN PO 02/14/25 15:30 02/17/25 23:28 15 MG Pantoprazole Sodium 40 mg BID IV 02/14/25 22:00 02/18/25 09:57 40 MG Sucralfate 1 gm BID@0600,2200 GT 02/14/25 22:00 02/18/25 05:51 1 GM Sodium Chloride 10 ml QSHIFT@10,22 IV 02/15/25 22:00 02/18/25 10:00 10 ML Haloperidol Lactate 2.5 mg Q8HP PRN IV 02/16/25 09:15 02/16/25 10:34 2.5 MG Urea 15 gm BID PO 02/17/25 22:00 02/18/25 16:17 15 GM laboratory and microbiology Laboratory Tests 02/18/25 09:08 Test 02/18/25 09:08 Range/Units Serum Glucose 122 H 74-106 mg/dL Assessment/Plan Impression Acute hypoxemic respiratory failure Loculated pleural effusions Empyema CHF Patient seen and examined Events Low oxygen requirements On 2 liters nasal cannula confused chest tube removed family considering hospice Dietary Evaluation Review Comments: Continue current plan of care Expected Outcomes/Goals: To meet >75% estimated needs Lab values to improve Fu 3-5 days Plan discussed with: Patient CC Plasma Assessment Blood Product Administration S: [id number] BEE ARREDONDO MD Feb 18, 2025 17:59
--- NOTE | 2025-02-18 18:24 | DVHPN2 ---
Progress Note Date Seen: Feb 18, 2025 Resident Creating Document: KUSH MONAHAN RESIDENT Has the PT tested + for MRSA If YES, has PT been informed?: No Medical Necessity Reason Pt with a Central, PICC or Fol: Yes The following are medically ne: PICC Line, Allan Catheter Reason for allan catheter: Strict I&O Subjective Review of Systems Today's progress and findings Patient remains under palliative management per family's request, with the decision for hospice care. Chest tube was removed. Family has declined further invasive GI interventions, including colonoscopy and upper endoscopy. Patient's hemoglobin improved to 9 0.9 from 6.8 yesterday following transfusion. WBC count remains elevated at 12.3. No new GI bleeding episodes reported. Patient tolerating current feeding regimen without nausea or aspiration signs. No acute abdominal pain, nausea or new distention. The patient had a bowel movement today it revealed dark stools. a fib with rvr: amiodarone , dc eliquis right effusion s/p thoracentesis right pneumonia/sepsis with loculated effusion/empyema: chest tube placement, add vanc, iv antibiotics-gram positive/neg/ mrsa transaminitis Objective vital signs Vital Sign Date Time Temp Pulse Resp B/P (MAP) Pulse Ox O2 Delivery O2 Flow Rate FiO2 02/18/25 17:00 97.5 88 17 104/70 (81) 95 97.5 02/18/25 08:00 Nasal Cannula* 4 36 Total Intake and Output 02/17/25 02/17/25 02/18/25 15:00 23:00 07:00 Intake Total 0 ml 800 ml 800 ml Output Total 1250 ml Balance 0 ml -450 ml 800 ml medications Current Medications Medications Dose Ordered Sig/Amna Route Start Time Stop Time Status Last Admin Dose Admin Ondansetron HCl 4 mg Q4HP PRN IV 02/07/25 22:45 02/15/25 08:57 4 MG Nitroglycerin 0.4 mg Q5MINP PRN SL 02/07/25 22:45 02/17/25 21:07 0.4 MG Acetaminophen/ Hydrocodone Bitart 1 tab Q6HPRN PRN PO 02/08/25 13:00 02/18/25 06:21 1 TAB Piperacillin Sod/ Tazobactam Sod 100 ml @ 25 mls/hr Q8HR IV 02/09/25 22:00 02/18/25 05:51 25 MLS/HR Vancomycin HCl 0 ml @ 0 mls/hr UD IV 02/12/25 12:00 Enteral Nutritional Formula 240 ml BIDWM PO 02/12/25 18:00 02/18/25 08:00 240 ML Magnesium Oxide 800 mg DAILY PO 02/13/25 10:00 02/18/25 09:58 800 MG Amiodarone HCl 200 mg Q12HR PO 02/14/25 22:00 02/18/25 09:58 200 MG Temazepam 15 mg HSPRN PRN PO 02/14/25 15:30 02/17/25 23:28 15 MG Pantoprazole Sodium 40 mg BID IV 02/14/25 22:00 02/18/25 09:57 40 MG Sucralfate 1 gm BID@0600,2200 GT 02/14/25 22:00 02/18/25 05:51 1 GM Sodium Chloride 10 ml QSHIFT@10,22 IV 02/15/25 22:00 02/18/25 10:00 10 ML Haloperidol Lactate 2.5 mg Q8HP PRN IV 02/16/25 09:15 02/16/25 10:34 2.5 MG Urea 15 gm BID PO 02/17/25 22:00 02/18/25 16:17 15 GM Examination GENERAL:Normal, HEENT:Normal, NECK:Normal, LUNGS:Normal, LUNGS:Abnormal (oxygen, decreased right side, chest tube), CVS:Normal, ABDOMEN:Normal, MSK:Normal, SKIN:Normal, NEURO:Normal, :Normal laboratory and microbiology Laboratory Tests 02/18/25 09:08 Test 02/18/25 09:08 Range/Units Serum Glucose 122 H 74-106 mg/dL Microbiology Date/Time Source Procedure Growth Status 02/14/25 10:45 Pleural Fluid Gram Stain - Final Resulted 02/14/25 10:45 Pleural Fluid Body Fluid Culture - Preliminary Resulted 02/07/25 21:17 Blood Blood Culture - Final NO GROWTH AFTER 5 DAYS OF INCUBATION. Complete Problem List/Assessment/Plan Problem List/Assessment/Plan Assessment finding (1) Pneumonia (2) Leukocytosis (3) Pleural effusion, right (4) Melena (5) Anemia Plan/Recommendation Plan No invasive procedures colonoscopy, EGD per hospice plan. Monitor hemoglobin closely. Recommending conservative management at this time as the family wants to proceed with hospice care Protonix 40 mg IV q.12 hours Carafate 1 g p.o. 4 times a day Monitor serial H&H Transfuse if hemoglobin drops below 7 Maintained on full liquid diet in the meantime Discussed goals of cares with the patient's son and he agreed upon Plan discussed with: Son Dietary Evaluation Review Comments: Continue current plan of care Expected Outcomes/Goals: To meet >75% estimated needs Lab values to improve Fu 3-5 days CC Plasma Assessment Blood Product Administration S: [id number] KUSH MONAHAN RESIDENT Feb 18, 2025 18:24
--- NOTE | 2025-02-18 21:05 | DVHPN2 ---
Progress Note Date Seen: Feb 18, 2025 Has the PT tested + for MRSA If YES, has PT been informed?: No Medical Necessity Reason Pt with a Central, PICC or Fol: Yes The following are medically ne: PICC Line, Allan Catheter Reason for allan catheter: Strict I&O Subjective Patient reports: Feels worse Review of Systems: Deferred Objective vital signs Vital Sign Date Time Temp Pulse Resp B/P (MAP) Pulse Ox O2 Delivery O2 Flow Rate FiO2 02/18/25 17:00 97.5 88 17 104/70 (81) 95 97.5 02/18/25 08:00 Nasal Cannula* 4 36 Total Intake and Output 02/17/25 02/17/25 02/18/25 15:00 23:00 07:00 Intake Total 0 ml 800 ml 800 ml Output Total 1250 ml Balance 0 ml -450 ml 800 ml medications Current Medications Medications Dose Ordered Sig/Amna Route Start Time Stop Time Status Last Admin Dose Admin Ondansetron HCl 4 mg Q4HP PRN IV 02/07/25 22:45 02/15/25 08:57 4 MG Nitroglycerin 0.4 mg Q5MINP PRN SL 02/07/25 22:45 02/17/25 21:07 0.4 MG Acetaminophen/ Hydrocodone Bitart 1 tab Q6HPRN PRN PO 02/08/25 13:00 02/18/25 06:21 1 TAB Piperacillin Sod/ Tazobactam Sod 100 ml @ 25 mls/hr Q8HR IV 02/09/25 22:00 02/18/25 18:22 25 MLS/HR Vancomycin HCl 0 ml @ 0 mls/hr UD IV 02/12/25 12:00 Enteral Nutritional Formula 240 ml BIDWM PO 02/12/25 18:00 02/18/25 18:22 240 ML Magnesium Oxide 800 mg DAILY PO 02/13/25 10:00 02/18/25 09:58 800 MG Amiodarone HCl 200 mg Q12HR PO 02/14/25 22:00 02/18/25 09:58 200 MG Temazepam 15 mg HSPRN PRN PO 02/14/25 15:30 02/17/25 23:28 15 MG Pantoprazole Sodium 40 mg BID IV 02/14/25 22:00 02/18/25 09:57 40 MG Sucralfate 1 gm BID@0600,2200 GT 02/14/25 22:00 02/18/25 05:51 1 GM Sodium Chloride 10 ml QSHIFT@10,22 IV 02/15/25 22:00 02/18/25 10:00 10 ML Haloperidol Lactate 2.5 mg Q8HP PRN IV 02/16/25 09:15 02/16/25 10:34 2.5 MG Urea 15 gm BID PO 02/17/25 22:00 02/18/25 16:17 15 GM laboratory and microbiology Laboratory Tests 02/18/25 09:08 Test 02/18/25 09:08 Range/Units Serum Glucose 122 H 74-106 mg/dL Microbiology Date/Time Source Procedure Growth Status 02/14/25 10:45 Pleural Fluid Gram Stain - Final Resulted 02/14/25 10:45 Pleural Fluid Body Fluid Culture - Preliminary Resulted 02/07/25 21:17 Blood Blood Culture - Final NO GROWTH AFTER 5 DAYS OF INCUBATION. Complete Problem List/Assessment/Plan Problem List/Assessment/Plan Hyponatremia Diastolic heart failure with RV failure Atrial fibrillation on Eliquis Preserved renal function CKD II Hyperkalemia -> now low K Metabolic alkalosis hypomagnesemia Recommendations salt tabs as ordered trial of Jarrett will f/u chest tube removed Plan discussed with: Patient, Son Dietary Evaluation Review Comments: Continue current plan of care Expected Outcomes/Goals: To meet >75% estimated needs Lab values to improve Fu 3-5 days CC Plasma Assessment Blood Product Administration S: [id number] MARCELLA CORREA MD Feb 18, 2025 21:05
--- NOTE | 2025-02-18 23:11 | DVHPN2 ---
Progress Note - Dictate Date Seen: Feb 18, 2025 Has the PT tested + for MRSA If YES, has PT been informed?: No Medical Necessity Reason Pt with a Central, PICC or Fol: Yes The following are medically ne: PICC Line, Allan Catheter Reason for allan catheter: Strict I&O Subjective Patient was seen and evaluated in follow up. Patient is on 4 LPM NC. Chest tube was removed. H&H stable s/p PRBC transfusion. Family has declined further invasive GI interventions, including colonoscopy and upper endoscopy. Pending hospice eval. WBC 12.3. Telemetry reviewed. vital signs Vital Sign Date Time Temp Pulse Resp B/P (MAP) Pulse Ox O2 Delivery O2 Flow Rate FiO2 02/18/25 21:00 97.8 82 16 154/66 (95) 98 97.8 02/18/25 08:00 Nasal Cannula* 4 36 Total Intake and Output 02/17/25 02/17/25 02/18/25 15:00 23:00 07:00 Intake Total 0 ml 800 ml 800 ml Output Total 1250 ml Balance 0 ml -450 ml 800 ml medications Current Medications Medications Dose Ordered Sig/Amna Route Start Time Stop Time Status Last Admin Dose Admin Ondansetron HCl 4 mg Q4HP PRN IV 02/07/25 22:45 02/15/25 08:57 4 MG Nitroglycerin 0.4 mg Q5MINP PRN SL 02/07/25 22:45 02/17/25 21:07 0.4 MG Acetaminophen/ Hydrocodone Bitart 1 tab Q6HPRN PRN PO 02/08/25 13:00 02/18/25 06:21 1 TAB Piperacillin Sod/ Tazobactam Sod 100 ml @ 25 mls/hr Q8HR IV 02/09/25 22:00 02/18/25 21:20 25 MLS/HR Vancomycin HCl 0 ml @ 0 mls/hr UD IV 02/12/25 12:00 Enteral Nutritional Formula 240 ml BIDWM PO 02/12/25 18:00 02/18/25 18:22 240 ML Magnesium Oxide 800 mg DAILY PO 02/13/25 10:00 02/18/25 09:58 800 MG Amiodarone HCl 200 mg Q12HR PO 02/14/25 22:00 02/18/25 21:19 200 MG Temazepam 15 mg HSPRN PRN PO 02/14/25 15:30 02/18/25 21:19 15 MG Pantoprazole Sodium 40 mg BID IV 02/14/25 22:00 02/18/25 21:19 40 MG Sucralfate 1 gm BID@0600,2200 GT 02/14/25 22:00 02/18/25 21:19 1 GM Sodium Chloride 10 ml QSHIFT@10,22 IV 02/15/25 22:00 02/18/25 21:20 10 ML Haloperidol Lactate 2.5 mg Q8HP PRN IV 02/16/25 09:15 02/16/25 10:34 2.5 MG Urea 15 gm BID PO 02/17/25 22:00 02/18/25 21:18 15 GM objective GENERAL: Alert and oriented x 2. No acute distress. EYES: PERRL, EOMI. Anicteric. HENT: Moist mucous membranes. LUNGS: Clear to auscultation bilaterally. CARDIOVASCULAR: Regular rate and rhythm. ABDOMEN: Soft, nontender and nondistended. EXTREMITIES: No edema. NEUROLOGIC: No focal neurological deficits. SKIN: Warm, dry. laboratory and microbiology Laboratory Tests 02/18/25 09:08 Test 02/18/25 09:08 Range/Units Serum Glucose 122 H 74-106 mg/dL Problem List Chest pain. Pneumonia. Hyponatremia. AFib on Eliquis. Hypertension. Type 2 diabetes mellitus. Hypothyroidism. Hyperlipidemia. Assessment/Plan Continued all current supportive medical care. [place] for pain management. Amiodarone. Nitro SL. GI prophylactics. IV antibiotics as ordered. Additional plan as per the hospital course. Dietary Evaluation Review Comments: Continue current plan of care Expected Outcomes/Goals: To meet >75% estimated needs Lab values to improve Fu 3-5 days Plan discussed with: Patient CC Plasma Assessment Blood Product Administration S: [id number] ABBEY VARELA MD Feb 18, 2025 23:11
[2025-02-19] VITALS (8 sets, daily range): BP systolic 121–148; BP diastolic 63–77; PULSE 80–108; RESP 15–20; TEMP 97.3–97.9; O2SAT 96–99
--- NOTE | 2025-02-19 07:21 | ECG ---
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
--- NOTE | 2025-02-19 11:37 | DVHPN2 ---
Progress Note Date Seen: Feb 19, 2025 Has the PT tested + for MRSA If YES, has PT been informed?: No Medical Necessity Reason Pt with a Central, PICC or Fol: Yes The following are medically ne: PICC Line, Allan Catheter Reason for allan catheter: Strict I&O Subjective Patient reports: No new complaints Review of Systems: HEENT:Normal, CVS:Normal, RESPIRATORY:Normal, GI:Normal, :Normal, MSK:Normal, NEURO:Normal Objective vital signs Vital Sign Date Time Temp Pulse Resp B/P (MAP) Pulse Ox O2 Delivery O2 Flow Rate FiO2 02/19/25 09:00 97.7 108 19 147/69 (95) 98 97.7 02/19/25 08:00 Nasal Cannula* 4 36 Total Intake and Output 02/18/25 02/18/25 02/19/25 15:00 23:00 07:00 Intake Total 410 ml 850 ml Balance 410 ml 850 ml medications Current Medications Medications Dose Ordered Sig/Amna Route Start Time Stop Time Status Last Admin Dose Admin Ondansetron HCl 4 mg Q4HP PRN IV 02/07/25 22:45 02/15/25 08:57 4 MG Nitroglycerin 0.4 mg Q5MINP PRN SL 02/07/25 22:45 02/17/25 21:07 0.4 MG Acetaminophen/ Hydrocodone Bitart 1 tab Q6HPRN PRN PO 02/08/25 13:00 02/19/25 10:11 1 TAB Piperacillin Sod/ Tazobactam Sod 100 ml @ 25 mls/hr Q8HR IV 02/09/25 22:00 02/19/25 05:51 25 MLS/HR Vancomycin HCl 0 ml @ 0 mls/hr UD IV 02/12/25 12:00 Enteral Nutritional Formula 240 ml BIDWM PO 02/12/25 18:00 02/19/25 08:00 240 ML Magnesium Oxide 800 mg DAILY PO 02/13/25 10:00 02/19/25 10:11 800 MG Amiodarone HCl 200 mg Q12HR PO 02/14/25 22:00 02/19/25 10:11 200 MG Temazepam 15 mg HSPRN PRN PO 02/14/25 15:30 02/18/25 21:19 15 MG Pantoprazole Sodium 40 mg BID IV 02/14/25 22:00 02/19/25 10:11 40 MG Sucralfate 1 gm BID@0600,2200 GT 02/14/25 22:00 02/19/25 05:52 1 GM Sodium Chloride 10 ml QSHIFT@, IV 02/15/25 22:00 02/19/25 10:02 10 ML Haloperidol Lactate 2.5 mg Q8HP PRN IV 02/16/25 09:15 02/16/25 10:34 2.5 MG Urea 15 gm BID PO 02/17/25 22:00 02/19/25 10:20 15 GM Examination: GENERAL:Normal, HEENT:Normal, NECK:Normal, LUNGS:Normal, LUNGS:Abnormal (decreased right side), CVS:Normal, ABDOMEN:Normal, MSK:Normal, SKIN:Normal, NEURO:Normal, :Normal laboratory and microbiology Laboratory Tests 02/18/25 09:08 Test 02/18/25 09:08 Range/Units Serum Glucose 122 H 74-106 mg/dL Microbiology Date/Time Source Procedure Growth Status 02/14/25 10:45 Pleural Fluid Gram Stain - Final Resulted 02/14/25 10:45 Pleural Fluid Body Fluid Culture - Preliminary Resulted 02/07/25 21:17 Blood Blood Culture - Final NO GROWTH AFTER 5 DAYS OF INCUBATION. Complete Problem List/Assessment/Plan Problem List/Assessment/Plan #1 acute resp failure: cont oxygen #2 acute diastolic heart failure: dc lasix iv #3 a fib with rvr: amiodarone , dc eliquis #4 hyponatremia: per nephro #5 right effusion s/p thoracentesis #6 right pneumonia/sepsis with loculated effusion/empyema: chest tube placement, add vanc, iv antibiotics-gram positive/neg/ mrsa #7 htn #8 transaminitis #9 anemia with gi bleed: iv ppi, carafate, transfuse advance care planning- dnr- time spent 19 mins long dw sons/daughter wish dnr and hospice care Plan discussed with: Patient Dietary Evaluation Review Comments: Continue current plan of care Expected Outcomes/Goals: To meet >75% estimated needs Lab values to improve Fu 3-5 days Date of Service: Feb 19, 2025 Billing Provider: KEVON APPLE MD Common Visit Codes: [id number] INP/OBS CARE(HIGH) CC Plasma Assessment Blood Product Administration S: [id number] KEVON APPLE MD Feb 19, 2025 11:37
--- NOTE | 2025-02-19 16:44 | DVHPN2 ---
Progress Note - Dictate Date Seen: Feb 19, 2025 Has the PT tested + for MRSA If YES, has PT been informed?: No Medical Necessity Reason Pt with a Central, PICC or Fol: Yes The following are medically ne: PICC Line, Allan Catheter Reason for allan catheter: Strict I&O vital signs Vital Sign Date Time Temp Pulse Resp B/P (MAP) Pulse Ox O2 Delivery O2 Flow Rate FiO2 02/19/25 13:00 97.9 89 18 121/63 (82) 97 97.9 02/19/25 08:00 Nasal Cannula* 4 36 Total Intake and Output 02/18/25 02/18/25 02/19/25 15:00 23:00 07:00 Intake Total 410 ml 850 ml Balance 410 ml 850 ml medications Current Medications Medications Dose Ordered Sig/Amna Route Start Time Stop Time Status Last Admin Dose Admin Ondansetron HCl 4 mg Q4HP PRN IV 02/07/25 22:45 02/15/25 08:57 4 MG Nitroglycerin 0.4 mg Q5MINP PRN SL 02/07/25 22:45 02/17/25 21:07 0.4 MG Acetaminophen/ Hydrocodone Bitart 1 tab Q6HPRN PRN PO 02/08/25 13:00 02/19/25 10:11 1 TAB Piperacillin Sod/ Tazobactam Sod 100 ml @ 25 mls/hr Q8HR IV 02/09/25 22:00 02/19/25 05:51 25 MLS/HR Enteral Nutritional Formula 240 ml BIDWM PO 02/12/25 18:00 02/19/25 08:00 240 ML Magnesium Oxide 800 mg DAILY PO 02/13/25 10:00 02/19/25 10:11 800 MG Amiodarone HCl 200 mg Q12HR PO 02/14/25 22:00 02/19/25 10:11 200 MG Temazepam 15 mg HSPRN PRN PO 02/14/25 15:30 02/18/25 21:19 15 MG Pantoprazole Sodium 40 mg BID IV 02/14/25 22:00 02/19/25 10:11 40 MG Sucralfate 1 gm BID@0600,2200 GT 02/14/25 22:00 02/19/25 05:52 1 GM Sodium Chloride 10 ml QSHIFT@10,22 IV 02/15/25 22:00 02/19/25 10:02 10 ML laboratory and microbiology Laboratory Tests 02/18/25 09:08 Test 02/18/25 09:08 Range/Units Serum Glucose 122 H 74-106 mg/dL Assessment/Plan Impression Acute hypoxemic respiratory failure Loculated pleural effusions Empyema CHF Patient seen and examined Events Low oxygen requirements On 2 liters nasal cannula No new events chest tube removed awaiting hospice Dietary Evaluation Review Comments: Continue current plan of care Expected Outcomes/Goals: To meet >75% estimated needs Lab values to improve Fu 3-5 days Plan discussed with: Patient CC Plasma Assessment Blood Product Administration S: [id number] BEE ARREDONDO MD Feb 19, 2025 16:44
--- NOTE | 2025-02-19 17:19 | DVHPN2 ---
Progress Note Date Seen: Feb 19, 2025 Resident Creating Document: KUSH MONAHAN RESIDENT Has the PT tested + for MRSA If YES, has PT been informed?: No Medical Necessity Reason Pt with a Central, PICC or Fol: Yes The following are medically ne: PICC Line, Allan Catheter Reason for allan catheter: Strict I&O Subjective Review of Systems Today's progress and findings Patient remains under palliative management per family's request, with the decision for hospice care Chest tube was removed. Family has declined further invasive GI interventions, including colonoscopy and upper endoscopy. Patient's hemoglobin improved to 9 0.9 from 6.8 following transfusion. WBC count remains elevated at 12.3. Patient tolerating current feeding regimen without nausea or aspiration signs. No acute abdominal pain, nausea or new distention. The patient had a bowel movement today it revealed dark stools. a fib with rvr: amiodarone , dc eliquis right effusion s/p thoracentesis right pneumonia/sepsis with loculated effusion/empyema: chest tube placement, add vanc, iv antibiotics-gram positive/neg/ mrsa transaminitis Objective vital signs Vital Sign Date Time Temp Pulse Resp B/P (MAP) Pulse Ox O2 Delivery O2 Flow Rate FiO2 02/19/25 13:00 97.9 89 18 121/63 (82) 97 97.9 02/19/25 08:00 Nasal Cannula* 4 36 Total Intake and Output 02/18/25 02/18/25 02/19/25 14:59 22:59 06:59 Intake Total 410 ml 850 ml Balance 410 ml 850 ml medications Current Medications Medications Dose Ordered Sig/Amna Route Start Time Stop Time Status Last Admin Dose Admin Ondansetron HCl 4 mg Q4HP PRN IV 02/07/25 22:45 02/15/25 08:57 4 MG Nitroglycerin 0.4 mg Q5MINP PRN SL 02/07/25 22:45 02/17/25 21:07 0.4 MG Acetaminophen/ Hydrocodone Bitart 1 tab Q6HPRN PRN PO 02/08/25 13:00 02/19/25 10:11 1 TAB Piperacillin Sod/ Tazobactam Sod 100 ml @ 25 mls/hr Q8HR IV 02/09/25 22:00 02/19/25 05:51 25 MLS/HR Enteral Nutritional Formula 240 ml BIDWM PO 02/12/25 18:00 02/19/25 08:00 240 ML Magnesium Oxide 800 mg DAILY PO 02/13/25 10:00 02/19/25 10:11 800 MG Amiodarone HCl 200 mg Q12HR PO 02/14/25 22:00 02/19/25 10:11 200 MG Temazepam 15 mg HSPRN PRN PO 02/14/25 15:30 02/18/25 21:19 15 MG Pantoprazole Sodium 40 mg BID IV 02/14/25 22:00 02/19/25 10:11 40 MG Sucralfate 1 gm BID@0600,2200 GT 02/14/25 22:00 02/19/25 05:52 1 GM Sodium Chloride 10 ml QSHIFT@,22 IV 02/15/25 22:00 02/19/25 10:02 10 ML Examination GENERAL:Normal, HEENT:Normal, NECK:Normal, LUNGS:Normal, LUNGS:Abnormal (decreased right side), CVS:Normal, ABDOMEN:Normal, MSK:Normal, SKIN:Normal, NEURO:Normal, :Normal laboratory and microbiology Laboratory Tests 02/18/25 09:08 Test 02/18/25 09:08 Range/Units Serum Glucose 122 H 74-106 mg/dL Microbiology Date/Time Source Procedure Growth Status 02/14/25 10:45 Pleural Fluid Gram Stain - Final Complete 02/14/25 10:45 Pleural Fluid Body Fluid Culture - Final Complete 02/07/25 21:17 Blood Blood Culture - Final NO GROWTH AFTER 5 DAYS OF INCUBATION. Complete Problem List/Assessment/Plan Problem List/Assessment/Plan Assessment finding (1) Pneumonia (2) Leukocytosis (3) Pleural effusion, right (4) Melena (5) Anemia Plan/Recommendation Plan No invasive procedures colonoscopy, EGD per hospice plan. Monitor hemoglobin closely. Recommending conservative management at this time as the family wants to proceed with hospice care Protonix 40 mg IV q.12 hours Carafate 1 g p.o. 4 times a day Monitor serial H&H Transfuse if hemoglobin drops below 7 Maintained on full liquid diet in the meantime Discussed goals of cares with the patient's son and he agreed upon Plan discussed with: Son Dietary Evaluation Review Comments: Continue current plan of care Expected Outcomes/Goals: To meet >75% estimated needs Lab values to improve Fu 3-5 days CC Plasma Assessment Blood Product Administration S: [id number] KUSH MONAHAN RESIDENT Feb 19, 2025 17:19
--- NOTE | 2025-02-19 18:07 | DVHPN2 ---
Progress Note Date Seen: Feb 19, 2025 Has the PT tested + for MRSA If YES, has PT been informed?: No Medical Necessity Reason Pt with a Central, PICC or Fol: Yes The following are medically ne: PICC Line, Allan Catheter Reason for allan catheter: Strict I&O Subjective Patient reports: Feels worse Objective vital signs Vital Sign Date Time Temp Pulse Resp B/P (MAP) Pulse Ox O2 Delivery O2 Flow Rate FiO2 02/19/25 17:00 97.3 91 20 148/77 (100) 99 97.3 02/19/25 08:00 Nasal Cannula* 4 36 Total Intake and Output 02/18/25 02/18/25 02/19/25 15:00 23:00 07:00 Intake Total 410 ml 850 ml Balance 410 ml 850 ml medications Current Medications Medications Dose Ordered Sig/Amna Route Start Time Stop Time Status Last Admin Dose Admin Ondansetron HCl 4 mg Q4HP PRN IV 02/07/25 22:45 02/15/25 08:57 4 MG Nitroglycerin 0.4 mg Q5MINP PRN SL 02/07/25 22:45 02/17/25 21:07 0.4 MG Acetaminophen/ Hydrocodone Bitart 1 tab Q6HPRN PRN PO 02/08/25 13:00 02/19/25 10:11 1 TAB Piperacillin Sod/ Tazobactam Sod 100 ml @ 25 mls/hr Q8HR IV 02/09/25 22:00 02/19/25 05:51 25 MLS/HR Enteral Nutritional Formula 240 ml BIDWM PO 02/12/25 18:00 02/19/25 08:00 240 ML Magnesium Oxide 800 mg DAILY PO 02/13/25 10:00 02/19/25 10:11 800 MG Amiodarone HCl 200 mg Q12HR PO 02/14/25 22:00 02/19/25 10:11 200 MG Temazepam 15 mg HSPRN PRN PO 02/14/25 15:30 02/18/25 21:19 15 MG Pantoprazole Sodium 40 mg BID IV 02/14/25 22:00 02/19/25 10:11 40 MG Sucralfate 1 gm BID@0600,2200 GT 02/14/25 22:00 02/19/25 05:52 1 GM Sodium Chloride 10 ml QSHIFT@,22 IV 02/15/25 22:00 02/19/25 10:02 10 ML laboratory and microbiology Laboratory Tests 02/18/25 09:08 Test 02/18/25 09:08 Range/Units Serum Glucose 122 H 74-106 mg/dL Microbiology Date/Time Source Procedure Growth Status 02/14/25 10:45 Pleural Fluid Gram Stain - Final Complete 02/14/25 10:45 Pleural Fluid Body Fluid Culture - Final Complete 02/07/25 21:17 Blood Blood Culture - Final NO GROWTH AFTER 5 DAYS OF INCUBATION. Complete Problem List/Assessment/Plan Problem List/Assessment/Plan Hyponatremia Diastolic heart failure with RV failure Atrial fibrillation on Eliquis Preserved renal function CKD II Hyperkalemia -> now low K Metabolic alkalosis hypomagnesemia Recommendations no labs though ordered--my order got cancelled-- need labs salt tabs as ordered trial of Jarrett will f/u chest tube removed Plan discussed with: Patient My Orders My Orders Orders - MARCELLA CORREA MD Procedure Category Date Status Time Basic Metabolic Panel LAB 02/19/25 Verified 18:05 Basic Metabolic Panel LAB 02/20/25 Verified 04:00 Dietary Evaluation Review Comments: Continue current plan of care Expected Outcomes/Goals: To meet >75% estimated needs Lab values to improve Fu 3-5 days CC Plasma Assessment Blood Product Administration S: [id number] MARCELLA CORREA MD Feb 19, 2025 18:07
--- NOTE | 2025-02-19 23:38 | DVHPN2 ---
Progress Note - Dictate Date Seen: Feb 19, 2025 Has the PT tested + for MRSA If YES, has PT been informed?: No Medical Necessity Reason Pt with a Central, PICC or Fol: Yes The following are medically ne: PICC Line, Allan Catheter Reason for allan catheter: Strict I&O Subjective Patient was seen and evaluated in follow up. Patient is on 4 LPM NC. Patient complains of generalized discomfort. Patient's son is requesting hospice services with [facility] for the patient. Telemetry reviewed. vital signs Vital Sign Date Time Temp Pulse Resp B/P (MAP) Pulse Ox O2 Delivery O2 Flow Rate FiO2 02/19/25 09:00 97.7 108 19 147/69 (95) 98 97.7 02/19/25 08:00 Nasal Cannula* 4 36 Total Intake and Output 02/18/25 02/18/25 02/19/25 15:00 23:00 07:00 Intake Total 410 ml 850 ml Balance 410 ml 850 ml medications Current Medications Medications Dose Ordered Sig/Amna Route Start Time Stop Time Status Last Admin Dose Admin Ondansetron HCl 4 mg Q4HP PRN IV 02/07/25 22:45 02/15/25 08:57 4 MG Nitroglycerin 0.4 mg Q5MINP PRN SL 02/07/25 22:45 02/17/25 21:07 0.4 MG Acetaminophen/ Hydrocodone Bitart 1 tab Q6HPRN PRN PO 02/08/25 13:00 02/19/25 10:11 1 TAB Piperacillin Sod/ Tazobactam Sod 100 ml @ 25 mls/hr Q8HR IV 02/09/25 22:00 02/19/25 05:51 25 MLS/HR Vancomycin HCl 0 ml @ 0 mls/hr UD IV 02/12/25 12:00 Enteral Nutritional Formula 240 ml BIDWM PO 02/12/25 18:00 02/19/25 08:00 240 ML Magnesium Oxide 800 mg DAILY PO 02/13/25 10:00 02/19/25 10:11 800 MG Amiodarone HCl 200 mg Q12HR PO 02/14/25 22:00 02/19/25 10:11 200 MG Temazepam 15 mg HSPRN PRN PO 02/14/25 15:30 02/18/25 21:19 15 MG Pantoprazole Sodium 40 mg BID IV 02/14/25 22:00 02/19/25 10:11 40 MG Sucralfate 1 gm BID@0600,2200 GT 02/14/25 22:00 02/19/25 05:52 1 GM Sodium Chloride 10 ml QSHIFT@10,22 IV 02/15/25 22:00 02/19/25 10:02 10 ML objective GENERAL: Alert and oriented x 2. No acute distress. EYES: PERRL, EOMI. Anicteric. HENT: Moist mucous membranes. LUNGS: Clear to auscultation bilaterally. CARDIOVASCULAR: Regular rate and rhythm. ABDOMEN: Soft, nontender and nondistended. EXTREMITIES: No edema. NEUROLOGIC: No focal neurological deficits. SKIN: Warm, dry. laboratory and microbiology Laboratory Tests 02/18/25 09:08 Test 02/18/25 09:08 Range/Units Serum Glucose 122 H 74-106 mg/dL Problem List Chest pain. Pneumonia. Hyponatremia. AFib on Eliquis. Hypertension. Type 2 diabetes mellitus. Hypothyroidism. Hyperlipidemia. Assessment/Plan Continued all current supportive medical care. Amiodarone. GI prophylactics. IV antibiotics as ordered. [place] for pain management. Additional plan as per the hospital course. Dietary Evaluation Review Comments: Continue current plan of care Expected Outcomes/Goals: To meet >75% estimated needs Lab values to improve Fu 3-5 days Plan discussed with: Patient CC Plasma Assessment Blood Product Administration S: [id number] ABBEY VARELA MD Feb 19, 2025 14:08
[2025-02-20 01:00] VITALS: BP 133/80; PULSE 110; RESP 17; TEMP 97; O2SAT 99
[2025-02-20 05:00] VITALS: BP 143/75; PULSE 80; RESP 17; TEMP 97; O2SAT 95
[2025-02-20 08:00] VITALS: PULSE 106
[2025-02-20 09:13] VITALS: BP 135/64; PULSE 94; RESP 16; TEMP 97.6; O2SAT 97
[2025-02-20 11:18] VITALS: BP 141/70; PULSE 89; TEMP 36.4
--- NOTE | 2025-02-20 12:37 | DVHDS2 ---
Discharge Summary Date of Admission Feb 07, 2025 at 22:45 Date of Discharge: Feb 20, 2025 Labs/Diagnostic Data: Laboratory Results Test 02/18/25 09:08 02/17/25 17:07 02/17/25 07:36 02/15/25 18:10 White Blood Count 12.3 10^3/uL (4.4-10.8) Red Blood Count 3.30 10^6/uL (4.0-5.20) Hemoglobin 9.9 g/dL (12.2-16.2) Hematocrit 29.3 % (36.0-46.0) Mean Corpuscular Volume 88.8 fL (80.0-100.0) Mean Corpuscular Hemoglobin 30.1 pg (28.0-32.0) Mean Corpuscular Hemoglobin Concent 33.8 g/dL (32.0-36.0) Red Cell Distribution Width 14.7 % (11.8-14.3) Platelet Count 269 10^3/uL (140-450) Mean Platelet Volume 6.6 fL (6.9-10.8) Neutrophils (%) (Auto) 87.3 % (37.0-80.0) Lymphocytes (%) (Auto) 4.7 % (10.0-50.0) Monocytes (%) (Auto) 6.6 % (0.0-12.0) Eosinophils (%) (Auto) 1.3 % (0.0-7.0) Basophils (%) (Auto) 0.1 % (0.0-2.0) Neutrophils # (Auto) 10.7 10 ^3/uL (1.6-8.6) Lymphocytes # (Auto) 0.6 10 ^3/uL (0.4-5.4) Monocytes # (Auto) 0.8 10 ^3/uL (0-1.3) Eosinophils # (Auto) 0.2 10 ^3/uL (0-0.8) Basophils # (Auto) 0 10 ^3/uL (0-0.2) Nucleated Red Blood Cells 0.0 % Sodium Level 135 mmol/L (136-145) Potassium Level 4.2 mmol/L (3.5-5.1) Chloride Level 97 mmol/L (98-107) Carbon Dioxide Level 31 mmol/L (20-31) Anion Gap 7 (5-15) Blood Urea Nitrogen 22 mg/dL (9-23) Creatinine 0.97 mg/dL (0.550-1.02) Glomerular Filtration Rate Calc 57 mL/min (>90) BUN/Creatinine Ratio 22.7 (10.0-20.0) Serum Glucose 122 mg/dL (74-106) Calcium Level 7.7 mg/dL (8.7-10.4) Magnesium Level 1.9 mg/dL (1.6-2.6) Total Bilirubin 0.5 mg/dL (0.2-1.0) Aspartate Amino Transferase (AST) 22 U/L (13-40) Alanine Aminotransferase (ALT) 32 U/L (7-40) Alkaline Phosphatase 97 U/L (46-116) Total Protein 4.4 g/dL (5.7-8.2) Albumin 2.5 g/dL (3.2-4.8) Random Vancomycin Level 16.5 ug/mL (5-10) Vancomycin Level Trough 22.3 ug/mL (5-10) Platelet Estimate Adequate Hypochromasia (manual) Slight Urine Osmolality 322 mOsm/kg Test 02/15/25 11:55 02/14/25 19:57 02/14/25 10:45 02/14/25 08:28 Serum Osmolality 243 mOsm/kg (278-298) Stool Occult Blood Positive (Negative) Stool Occult Blood Sample #3 (Negative) Body Fluid Source Pleural Body Fluid pH 9.0 Body Fluid WBC (Manual) 698 CUMM (0-200) Body Fluid RBC (Manual) 3044 CUMM (0-2000) Body Fluid Mononuclear Cells 5 % Body Fluid Polymorphonuclear Cells 95 % (0-25) Prothrombin Time 11.3 sec (9.3-11.8) Prothrombin Time INR 1.07 (0.9-1.15) Activated Partial Thromboplast Time 31.0 SEC (24.5-34.5) Test 02/13/25 19:10 02/13/25 11:05 02/12/25 07:09 02/11/25 12:45 Body Fluid Glucose 18 mg/dL (.) Body Fluid Total Protein 3.6 g/dL (.) Body Fluid Lactate Dehydrogenase 5912 IU/L (.) Urine Sodium < 10 mmol/L (40-220) Uric Acid 4.0 mg/dL (3.1-7.8) Serum Immunoglobulin G 717 mg/dL (586-1602) Globulin (PEP) 2.7 g/dL (2.2-3.9) Albumin/Globulin Ratio 0.7 (0.7-1.7) Yhepd-3-Zawvfmxfz 0.5 g/dL (0.0-0.4) Zofyk-8-Nvhhaosqt 0.7 g/dL (0.4-1.0) Beta Globulins 0.8 g/dL (0.7-1.3) Gamma Globulins 0.7 g/dL (0.4-1.8) Protein Electrophoresis M-Vaughn Not observed g/dL (Not Protein Electrophoresis Note Comment (.) Immunoglobulin A 213 mg/dL (64-422) Immunoglobulin M 76 mg/dL (26-217) Serum Immunofixation Comment (.) Test 02/11/25 09:50 02/10/25 16:30 02/07/25 21:17 02/07/25 20:10 Triglycerides Level 113 mg/dL (< 150) Cholesterol Level 90 mg/dL (< 200) LDL Cholesterol 66 mg/dL (< 100) HDL Cholesterol 13 mg/dL (40-59) Urine Color Colorless (Yellow) Urine Clarity Clear (Clear) Urine pH 5.5 (5.0-9.0) Urine Specific [place] 1.009 (1.001-1.035) Urine Protein Negative (Negative) Urine Ketones Negative (Negative) Urine Blood Negative /uL (Negative) Urine Nitrite Negative (Negative) Urine Bilirubin Negative (Negative) Urine Urobilinogen Normal mg/dL (Negative) Urine Leukocyte Esterase Negative /uL (Negative) Urine RBC 1 /hpf (0 - 4) Urine Microscopic WBC < 1 /HPF (0-5) Urine Squamous Epithelial Cells None seen /hpf (<5) Urine Bacteria None seen /hpf (None Seen) Urine Glucose Normal mg/dL (Normal) Lactic Acid Level 1.2 mmol/L (0.4-2.0) Troponin I High Sensitivity < 3 ng/L (</=34) Influenza Type A Antigen Negative (Negative) Influenza Type B Antigen Negative (Negative) SARS-CoV-2 Antigen (Rapid) Negative (NEGATIVE) Test 02/07/25 18:05 D-Dimer, Quantitative 1.16 mg/L FEU (0.0-0.49) B-Type Natriuretic Peptide 140.34 pg/mL (0-100) Other Laboratory Tests 02/18/25 09:08 Brief Hx & Hospital Course: see dictated note Condition at Discharge: Guarded Final Diagnosis/Problems List PNEUMONIA Discharge Disposition: Hospice- Medical Facility Discharge Instruct/Medications Diet: Regular Activity: No Restrictions, As Tolerated Follow Up/Referral: FU WITH HOSPICE Medications: PER HOSPICE No Active Prescriptions or Reported Meds Discharge Statement: "Patient was advised to return to the ER or call 911 if any headaches, dizziness, shortness of breath, chest pain, abdominal pain, bleeding, fevers, or worsening of medical condition. Patient was counseled about treatment plan, medications, possible side effects, patientverbalized understanding. All questions were answered to the best of my ability. This discharge took greater then 30 minutes in planning, reviewing documentation, counseling the patient, and discussing with other team members." ASSESSMENT ASSESSMENT Assessment PNEUMONIA Date of Service: Feb 20, 2025 Billing Provider: KEVON APPLE MD Common Visit Codes: 55519-AZG/OBS DISCH DAY >30min KEVON APPLE MD Feb 20, 2025 12:37
--- NOTE | 2025-02-20 12:47 | DVHPN2 ---
Progress Note Date Seen: Feb 20, 2025 Has the PT tested + for MRSA If YES, has PT been informed?: No Medical Necessity Reason Pt with a Central, PICC or Fol: Yes The following are medically ne: PICC Line, Allan Catheter Reason for allan catheter: Strict I&O Subjective Patient reports: Other Objective vital signs Vital Sign Date Time Temp Pulse Resp B/P (MAP) Pulse Ox O2 Delivery O2 Flow Rate FiO2 02/20/25 11:18 36.4 89 02/20/25 09:13 16 135/64 (87) 97 02/20/25 08:00 Nasal Cannula* 4 36 Total Intake and Output 02/19/25 02/19/25 02/20/25 15:00 23:00 07:00 Intake Total 350 ml 450 ml Balance 350 ml 450 ml medications Current Medications Medications Dose Ordered Sig/Amna Route Start Time Stop Time Status Last Admin Dose Admin Ondansetron HCl 4 mg Q4HP PRN IV 02/07/25 22:45 02/15/25 08:57 4 MG Nitroglycerin 0.4 mg Q5MINP PRN SL 02/07/25 22:45 02/17/25 21:07 0.4 MG Acetaminophen/ Hydrocodone Bitart 1 tab Q6HPRN PRN PO 02/08/25 13:00 02/20/25 12:23 1 TAB Piperacillin Sod/ Tazobactam Sod 100 ml @ 25 mls/hr Q8HR IV 02/09/25 22:00 02/20/25 05:36 25 MLS/HR Enteral Nutritional Formula 240 ml BIDWM PO 02/12/25 18:00 02/20/25 08:00 240 ML Magnesium Oxide 800 mg DAILY PO 02/13/25 10:00 02/20/25 09:54 800 MG Amiodarone HCl 200 mg Q12HR PO 02/14/25 22:00 02/20/25 09:53 200 MG Temazepam 15 mg HSPRN PRN PO 02/14/25 15:30 02/19/25 22:02 15 MG Pantoprazole Sodium 40 mg BID IV 02/14/25 22:00 02/20/25 09:54 40 MG Sucralfate 1 gm BID@0600,2200 GT 02/14/25 22:00 02/20/25 05:36 1 GM Sodium Chloride 10 ml QSHIFT@10,22 IV 02/15/25 22:00 02/20/25 09:54 10 ML laboratory and microbiology Laboratory Tests 02/18/25 09:08 Test 02/18/25 09:08 Range/Units Serum Glucose 122 H 74-106 mg/dL Microbiology Date/Time Source Procedure Growth Status 02/14/25 10:45 Pleural Fluid Gram Stain - Final Complete 02/14/25 10:45 Pleural Fluid Body Fluid Culture - Final Complete 02/07/25 21:17 Blood Blood Culture - Final NO GROWTH AFTER 5 DAYS OF INCUBATION. Complete Problem List/Assessment/Plan Problem List/Assessment/Plan Hyponatremia Diastolic heart failure with RV failure Atrial fibrillation on Eliquis Preserved renal function CKD II Hyperkalemia -> now low K Metabolic alkalosis hypomagnesemia Recommendations plan for hospice noted will sign off the case dc june Plan discussed with: Patient, Son Dietary Evaluation Review Comments: Continue current plan of care Expected Outcomes/Goals: To meet >75% estimated needs Lab values to improve Fu 3-5 days CC Plasma Assessment Blood Product Administration S: 00:17 MARCELLA CORREA MD Feb 20, 2025 12:47
--- NOTE | 2025-02-20 13:07 | DVHDS ---
DATE OF DISCHARGE: 02/20/2025 HISTORY OF PRESENT ILLNESS: The patient is an 85-year-old lady who was admitted with history of shortness of breath and right-sided chest pain and has history of hypertension, congestive heart failure, and atrial fibrillation. HOSPITAL COURSE: The patient had a chest x-ray that showed a right lower lung opacity with moderate right pleural effusion. The patient was seen in Pulmonary consult by Dr. Garrett. The patient had a CT angiography that showed a large right pleural effusion. She underwent thoracentesis that showed evidence of exudate. Cultures were negative. The patient subsequently had a repeat CT chest that showed a moderate right effusion and a second thoracentesis was performed. The patient also then had a chest tube placed by Radiology. The patient was hyponatremic and that has improved. She was seen in Nephrology consult by Dr. Cole. Her white count was elevated to 26,000 that improved to 12,000. The patient subsequently developed GI bleed and was transfused a total of 3 units of blood. She was seen in Cardiology consult by Dr. Capellan and GI consult by Dr. Vickers. After discussion with family, they now wish her to be DNR and on hospice. The patient will be on medications as per hospice. FINAL DIAGNOSES: Therefore, * Acute respiratory failure. * Acute diastolic heart failure. * Atrial fibrillation with rapid ventricular rate. * Hyponatremia. * Right-sided empyema. * Status post chest tube placement. * Sepsis with right-sided pneumonia, Gram-positive and Gram-negative. * Hypertension. * Anemia with GI bleed, status post transfusion. * Transaminitis. * DNR/hospice care. Time spent in discharge planning and review of plan with the patient, family and nursing was 41 minutes. MD CYN Xavier/MAVIS TID: [id number] RECEIPT: [id number]
[2025-02-20] MEDS ORDERED: FUROSEMIDE 20 MG/2 ML VIAL IV ONE (13:30)
[2025-02-20] MEDS: FUROSEMIDE 20 MG TAB PO ONE (14:14)
--- NOTE | 2025-02-20 23:14 | DVHPN2 ---
Progress Note - Dictate Date Seen: Feb 20, 2025 Has the PT tested + for MRSA If YES, has PT been informed?: No Medical Necessity Reason Pt with a Central, PICC or Fol: Yes The following are medically ne: PICC Line, Allan Catheter Reason for allan catheter: Strict I&O Subjective Patient was seen and evaluated in follow up. Patient is stable on 4 LPM NC. Patient complains of generalized discomfort. CM is arranging hospice services with [facility]. Telemetry reviewed. vital signs Vital Sign Date Time Temp Pulse Resp B/P (MAP) Pulse Ox O2 Delivery O2 Flow Rate FiO2 02/20/25 11:18 36.4 89 02/20/25 09:13 16 135/64 (87) 97 02/20/25 08:00 Nasal Cannula* 4 36 Total Intake and Output 02/19/25 02/19/25 02/20/25 15:00 23:00 07:00 Intake Total 350 ml 450 ml Balance 350 ml 450 ml medications Current Medications Medications Dose Ordered Sig/Amna Route Start Time Stop Time Status Last Admin Dose Admin Ondansetron HCl 4 mg Q4HP PRN IV 02/07/25 22:45 02/15/25 08:57 4 MG Nitroglycerin 0.4 mg Q5MINP PRN SL 02/07/25 22:45 02/17/25 21:07 0.4 MG Acetaminophen/ Hydrocodone Bitart 1 tab Q6HPRN PRN PO 02/08/25 13:00 02/20/25 12:23 1 TAB Piperacillin Sod/ Tazobactam Sod 100 ml @ 25 mls/hr Q8HR IV 02/09/25 22:00 02/20/25 05:36 25 MLS/HR Enteral Nutritional Formula 240 ml BIDWM PO 02/12/25 18:00 02/20/25 08:00 240 ML Magnesium Oxide 800 mg DAILY PO 02/13/25 10:00 02/20/25 09:54 800 MG Amiodarone HCl 200 mg Q12HR PO 02/14/25 22:00 02/20/25 09:53 200 MG Temazepam 15 mg HSPRN PRN PO 02/14/25 15:30 02/19/25 22:02 15 MG Pantoprazole Sodium 40 mg BID IV 02/14/25 22:00 8/14/25 09:54 40 MG Sucralfate 1 gm BID@0600,2200 GT 02/14/25 22:00 02/20/25 05:36 1 GM Sodium Chloride 10 ml QSHIFT@10,22 IV 02/15/25 22:00 02/20/25 09:54 10 ML objective GENERAL: Alert and oriented x 2. No acute distress. EYES: PERRL, EOMI. Anicteric. HENT: Moist mucous membranes. LUNGS: Clear to auscultation bilaterally. CARDIOVASCULAR: Regular rate and rhythm. ABDOMEN: Soft, nontender and nondistended. EXTREMITIES: No edema. NEUROLOGIC: No focal neurological deficits. SKIN: Warm, dry. laboratory and microbiology Laboratory Tests 02/18/25 09:08 Test 02/18/25 09:08 Range/Units Serum Glucose 122 H 74-106 mg/dL Problem List Chest pain. Pneumonia. Hyponatremia. AFib on Eliquis. Hypertension. Type 2 diabetes mellitus. Hypothyroidism. Hyperlipidemia. Assessment/Plan Continued all current supportive medical care. Amiodarone. GI prophylactics. IV antibiotics as ordered. [place] for pain management. Additional plan as per the hospital course. Dietary Evaluation Review Comments: Continue current plan of care Expected Outcomes/Goals: To meet >75% estimated needs Lab values to improve Fu 3-5 days Plan discussed with: Patient CC Plasma Assessment Blood Product Administration S: 00:17 ABBEY VARELA MD Feb 20, 2025 12:44
== END 2025-02-20 14:20 | disposition hospice, inpatient (51) | DRG 871 ==
LOC: ER 17:02 → OVERFLOW 22:45 → TELE-WESTW 02-08 02:38 → TELE-CENTR 02-14 20:26
PROVIDERS: ADMIT Internal Medicine; ATTEND Internal Medicine
PROC: 0W993ZZ Drainage of Right Pleural Cavity, Percutaneous Approach (ICD-10-PCS; 2025-02-09)
PROC: 05HB33Z Insertion of Infusion Device into Right Basilic Vein, Percutaneous Approach (ICD-10-PCS; 2025-02-10)
PROC: B54MZZA Ultrasonography of Right Upper Extremity Veins, Guidance (ICD-10-PCS; 2025-02-10)
PROC: 0W993ZZ Drainage of Right Pleural Cavity, Percutaneous Approach (ICD-10-PCS; 2025-02-13)
PROC: 30233N1 Transfusion of Nonautologous Red Blood Cells into Peripheral Vein, Percutaneous Approach (ICD-10-PCS; principal; 2025-02-14)
PROC: 0W9930Z Drainage of Right Pleural Cavity with Drainage Device, Percutaneous Approach (ICD-10-PCS; 2025-02-14)
PROC: 02HV33Z Insertion of Infusion Device into Superior Vena Cava, Percutaneous Approach (ICD-10-PCS; 2025-02-15)
PROC: B548ZZA Ultrasonography of Superior Vena Cava, Guidance (ICD-10-PCS; 2025-02-15)
PROC: 0W9930Z Drainage of Right Pleural Cavity with Drainage Device, Percutaneous Approach (ICD-10-PCS; 2025-02-16)
PROC: 0WP9X0Z Removal of Drainage Device from Right Pleural Cavity, External Approach (ICD-10-PCS; 2025-02-18)
DX: A41.50 Gram-negative sepsis, unspecified (principal); I50.31 Acute diastolic (congestive) heart failure; J15.69 Pneumonia due to other Gram-negative bacteria; J86.9 Pyothorax without fistula; J96.01 Acute respiratory failure with hypoxia; J15.9 Unspecified bacterial pneumonia; I31.39 Other pericardial effusion (noninflammatory); E87.20 Acidosis, unspecified; I48.92 Unspecified atrial flutter; I13.0 Hypertensive heart and chronic kidney disease with heart failure and stage 1 through stage 4 chronic kidney disease, or unspecified chronic kidney disease; J98.11 Atelectasis; E87.1 Hypo-osmolality and hyponatremia; Z66 Do not resuscitate; E87.5 Hyperkalemia; Z99.81 Dependence on supplemental oxygen; Z51.5 Encounter for palliative care; Z68.33 Body mass index [BMI] 33.0-33.9, adult; E66.9 Obesity, unspecified; E11.22 Type 2 diabetes mellitus with diabetic chronic kidney disease; F20.9 Schizophrenia, unspecified; F31.9 Bipolar disorder, unspecified; E03.9 Hypothyroidism, unspecified; D50.0 Iron deficiency anemia secondary to blood loss (chronic); E78.5 Hyperlipidemia, unspecified; I48.91 Unspecified atrial fibrillation; N18.2 Chronic kidney disease, stage 2 (mild); R59.0 Localized enlarged lymph nodes; Z90.710 Acquired absence of both cervix and uterus; Z86.718 Personal history of other venous thrombosis and embolism; Z82.3 Family history of stroke; Z79.01 Long term (current) use of anticoagulants; Z91.040 Latex allergy status
CPT/HCPCS: 32555; 36415; 36430; 36569; 71045; 71250; 71275; 76604; 76937; 76942; 80048; 80053; 80061; 80202; 81001; 82270; 82784; 83605; 83735; 83880; 83930; 83935; 83986; 84155; 84165; 84295; 84300; 84484; 84550; 85025; 85379; 85610; 85730; 86334; 86850; 86900; 86901; 86920; 87040; 87205; 87426; 87804; 89051; 93005; 93306; 93970; 96365; 97110; 97116; 97163; 97530; C1729; G0378; J1885; J2003; J2405; J2470; J2543; J3480